=== PATIENT | female | born 1935 | race Caucasian/White ===

== ENCOUNTER 2017-12-30 20:31 | Inpatient (IN) | payer MEDICARE, OTHER ==
[2017-12-30 21:11] LABS: #Lymphocytes 0.8 thou/uL (1.20-3.40); #Monocytes 0.8 thou/uL (0.11-0.59); #Neutrophils 11.1 thou/uL (1.40-6.50); %Eosinophils 0.1 % (0.0-10.0); %Lymphocytes 6.6 % (21.0-51.0); %Monocytes 6.1 % (0.0-10.0); %Neutrophils 87.2 % (42.0-75.0); Hemoglobin 14.5 g/dL (12.0-16.0); Mean Corpuscular HGB CONC 33.6 g/dL (32.0-36.0); Mean Corpuscular Hemoglobin 34.1 pg (27.0-31.0); Mean Platelet Volume 6.9 fL (7.4-10.4); Platelet Count 238 thou/uL (130-400); RBC Distribution Width 11.5 % (11.5-14.5); Red Blood Cell (RBC) Count 4.25 mill/uL (4.20-5.40); White Blood Cell (WBC) Count 12.7 thou/uL (4.8-10.8)
[2017-12-30 21:33] LABS: ALT (SGPT) 32 U/L (8-55); AST (SGOT) 36 U/L (5-34); Albumin 4.3 g/dL (3.4-4.8); Alkaline Phosphatase 100 U/L (40-150); Anion Gap 12 mmol/L (10-20); BUN (Urea Nitrogen) 12 mg/dL (9.8-20.1); Bilirubin, Total 1.1 mg/dL (0.2-1.2); Calc. Creatinine Clearance 0 mL/min (70-130); Calcium 10.1 mg/dL (7.8-10.44); Carbon Dioxide 30 mmol/L (23-31); Chloride 91 mmol/L (98-107); Estimated GFR-MDRD 75; Globulin 3.6 g/dL (2.4-3.5); Glucose 142 mg/dL (83-110); Potassium 4.2 mmol/L (3.5-5.1); Protein, Total 7.9 g/dL (6.0-8.3); Sodium 129 mmol/L (136-145)
--- NOTE | 2017-12-30 21:34 | RAD ---
PORTABLE CHEST: 12/30/2017 PROVIDED CLINICAL HISTORY: Shortness of breath. COMPARISON: 05/19/2013 FINDINGS: The cardiac and mediastinal silhouette are unchanged in appearance. Vascular calcifications involve the aortic arch. Emphysematous changes are redemonstrated. No focal consolidation, pleural fluid, o r pneumothorax apparent. IMPRESSION: No evidence for acute cardiopulmonary process. POS: [facility]
[2017-12-30 21:38] LABS: CKMB 2.2 ng/mL (0-6.6); Troponin I 0.084 ng/mL (< 0.028)
[2017-12-30] MEDS ORDERED: Furosemide 40 MG/4 ML VIAL ONE (22:41)
[2017-12-30] MEDS ORDERED: Nitroglycerin 2% Ointment 1 INCH/1 GM Packet ONE (22:46)
--- NOTE | 2017-12-30 23:46 | RAD ---
PELVIC RADIOGRAPH: 12/30/2017 PROVIDED CLINICAL HISTORY: Pain. FINDINGS: There is a nondisplaced impacted fracture of the left femoral neck. No additional fracture is eviden t. Vascular calcifications are seen. Hip joint spaces appear preserved. Lower lumbar spine degener ative changes are noted. IMPRESSION: Left femoral neck fracture. POS: [facility]
--- NOTE | 2017-12-30 23:47 | RAD ---
LEFT HIP RADIOGRAPHS TWO VIEWS: 12/30/2017 PROVIDED CLINICAL HISTORY: Pain. FINDINGS: Nondisplaced, impacted fracture involves the left femoral neck. No additional fracture is evident. Left hip joint space appears preserved. IMPRESSION: Left femoral neck fracture. POS: [facility]
[2017-12-31] MEDS ORDERED: Morphine 4 MG/ML VIAL ONE (00:10)
[2017-12-31] MEDS ORDERED: Ondansetron ODT 8 MG TAB ONE (00:10)
[2017-12-31] MEDS ORDERED: Lorazepam 2 MG/ML VIAL ONE (00:28)
[2017-12-31] MEDS ORDERED: Azithromycin 500 MG in Sodium Chloride 0.9% 250 ML 250 ML IVPB SCH (04:00)
[2017-12-31] MEDS ORDERED: Dextrose 5 % And 0.9 % NaCl 1,000 ML IV SCH (04:00)
[2017-12-31 04:03] LABS: #Lymphocytes 1.9 thou/uL (1.20-3.40); #Neutrophils 8.5 thou/uL (1.40-6.50); %Basophils 0.1 % (0.0-1.0); %Eosinophils 0.1 % (0.0-10.0); %Lymphocytes 16.6 % (21.0-51.0); %Monocytes 8.7 % (0.0-10.0); %Neutrophils 74.5 % (42.0-75.0); Hemoglobin 13.2 g/dL (12.0-16.0); Mean Corpuscular HGB CONC 33.4 g/dL (32.0-36.0); Mean Corpuscular Hemoglobin 34.1 pg (27.0-31.0); Mean Platelet Volume 7.1 fL (7.4-10.4); Platelet Count 190 thou/uL (130-400); RBC Distribution Width 11.4 % (11.5-14.5); Red Blood Cell (RBC) Count 3.88 mill/uL (4.20-5.40); White Blood Cell (WBC) Count 11.4 thou/uL (4.8-10.8)
[2017-12-31 04:09] LABS: INR-International Normal Ratio 1.1; PTT 32.6 SEC (22.9-36.1); Prothrombin Time 14.1 SEC (12.0-14.7)
[2017-12-31 04:23] LABS: Troponin I 0.067 ng/mL (< 0.028)
[2017-12-31 04:26] LABS: ALT (SGPT) 51 U/L (8-55); AST (SGOT) 94 U/L (5-34); Albumin 3.7 g/dL (3.4-4.8); Alkaline Phosphatase 133 U/L (40-150); Anion Gap 11 mmol/L (10-20); BUN (Urea Nitrogen) 9 mg/dL (9.8-20.1); Bilirubin, Total 1.4 mg/dL (0.2-1.2); Calc. Creatinine Clearance 63 mL/min (70-130); Calcium 8.9 mg/dL (7.8-10.44); Carbon Dioxide 25 mmol/L (23-31); Chloride 98 mmol/L (98-107); Estimated GFR-MDRD Greater than 90; Glucose 119 mg/dL (83-110); Potassium 3.8 mmol/L (3.5-5.1); Protein, Total 6.7 g/dL (6.0-8.3); Sodium 130 mmol/L (136-145)
[2017-12-31] MEDS ORDERED: Furosemide 40 MG/4 ML VIAL SLOW IVP SCH (07:00)
[2017-12-31] MEDS ORDERED: cefTRIAXone\\ROCEPHIN 2 GM in Sodium Chloride 0.9% 100 ML IVPB SCH (07:00)
[2017-12-31] MEDS ORDERED: CEFAZOLIN/Water 2 GM/20 ML SYRINGE SLOW IVP SCH (08:00)
--- NOTE | 2017-12-31 08:05 | CON ---
DATE OF CONSULTATION: 12/31/2017 CONSULTING PHYSICIAN: Dr. Gurpreet Rodriges HISTORY OF PRESENT ILLNESS: We were asked to see patient via the ER and Medical Service. The patien tyler came into the ER last night with increasing shortness of breath. Apparently, she was seen previous ly a week prior and her symptoms have gotten progressively worse. The patient got up to go to the [facility], apparently fallen in our ER sustaining a femoral neck fracture, nondisplaced. The patient cu rrently is in bed with obvious shortness of breath. She is very somnolent. I had to continue to gen tly shake the patient to keep her awake during our conversation and physical exam. Currently, she is resting in bed, head is elevated, her knees are under a pillow and this is comfortable for her. Mov ement of that hip does cause her some pain, but it is moderate currently. Her biggest complaint curr ently is shortness of breath and somnolence. Otherwise, she is fairly comfortable. PAST MEDICAL HISTORY: She got some chronic pain issues, neck and back, hypertension, some osteoarthr itis. PAST SURGICAL HISTORY: Right carotid endarterectomy, appendectomy in December, hysterectomy. PSYCHIATRIC HISTORY: Anxiety, some depression. SOCIAL HISTORY: She lives alone. She states she has no family, everybody has passed. No kids. She drinks a few glasses of wine a day. SOCIAL HISTORY: Smokes half to 1 pack a day and has for many years. ALLERGIES: Patient thinks LEVAQUIN and PENICILLIN. CURRENT MEDICATIONS: Alprazolam, aspirin, atenolol, azelastine nasal spray. REVIEW OF SYSTEMS: No chest pain, but definitely short of breath, very fatigued, tired, and some lef t hip pain, otherwise the rest review of systems is negative per patient. X-rays show nondisplaced left hip fracture. ASSESSMENT: 1. Multiple health issues, currently being treated by our Hospitalist. 2. Left hip fracture, nondisplaced. PLAN: I spoke with the patient. We would like to do percutaneous screws and I explained the procedu re with the risks and benefits of surgery. The patient is amenable to go forth with surgery. Dr. Jairo velasco also had come into the room for medical evaluation. The patient will definitely need medic al clearance prior to surgery. She is not on any blood thinners. She is currently n.p.o. We will ge t her consented, put her on the OR schedule for today to hold a spot for her. Again, I have gone ove r the risks and benefits with her and she is okay with us proceeding forth with surgery. She is inde pendent. We want to get her back at that status as soon as possible.
[2017-12-31 08:28] LABS: Bilirubin Negative (Negative); Blood, Urine Small (Negative); Clarity CLOUDY (Clear); Glucose, Urine (Dipstick) Negative (Negative); Leukocyte Negative (Negative); Nitrite Negative (Negative); Protein, Urine (Dipstick) 30 mg/dL (Neg-Trace); Specific Gravity, Urine 1.012 (1.002-1.036); pH, Urine 5.5 (5.0-9.0)
[2017-12-31 08:31] LABS: Bacteria/HPF None Seen HPF (None Seen); RBC/HPF 0-3 HPF (0-3); Squamous Epithelial 0-3 HPF (0-3); WBC/HPF 0-3 HPF (0-3)
[2017-12-31 08:41] LABS: Pathc Cast-AUWi Flag 2.61 (0-2.49)
[2017-12-31 08:52] LABS: Hyaline Casts/LPF 4-6 HYALINE CAST LPF (0-3 Hyaline); Other Casts/LPF 4-6 FINELY GRAN LPF (0-3 Hyaline)
[2017-12-31] MEDS ORDERED: Levofloxacin 750 mg/D5W 500 MG in Premix Bag 1 BAG IVPB SCH (10:15)
[2017-12-31] MEDS: cefTRIAXone\\ROCEPHIN 1 GM in Sodium Chloride 0.9% 100 ML IVPB SCH (11:46)
--- NOTE | 2017-12-31 12:09 | CON ---
DATE OF CONSULTATION: 12/31/2017 CONSULTING PHYSICIAN: Dr. Ambrose. REASON FOR CONSULTATION: Chronic obstructive pulmonary disease and elevated pulmonary artery pressures. HISTORY OF PRESENT ILLNESS: The patient is an 82-year-old female who came to the emergency room last night for increasing shortness of breath. She got up to use the bathroom and fell in the emergency room, sustaining a femoral neck fracture on the left. She is supposed to have surgery for repair. I have been asked to see her to assess her preoperative pulmonary status. The patient is a long-term at least 1 pack per day smoker who was continuing to smoke. Upon arrival yesterday, she does not take any type of oxygen or inhalers at home. She has shortness of breath with exertion and has had increased sputum production over the last week. PAST MEDICAL HISTORY: 1. Back pain. 2. Hypertension. 3. Osteoarthritis. PAST SURGICAL HISTORY: Right carotid endarterectomy, hysterectomy and appendectomy. SOCIAL HISTORY: Smokes at least a pack per day, drinks a few glasses of wine per day. Lives alone. ALLERGIES: LEVAQUIN and PENICILLIN. MEDICATIONS: Prior to admission, alprazolam, aspirin, atenolol, and Astelin nasal spray. REVIEW OF SYSTEMS: Remarkable for sputum production. No fever, chills, chest pain, hematemesis, melena, hematochezia, hematuria, or dysuria. PHYSICAL EXAMINATION: VITAL SIGNS: Temperature 98.3, pulse 110, respirations 18, O2 sat 96% on 2.5 liters, blood pressure 121/57. GENERAL: The patient is awake, alert, and in no profound distress. She does have a prominent cough. HEENT: Pupils react. Sclerae anicteric. Oropharynx clear. NECK: Without adenopathy or JVD. LUNGS: Coarse rhonchi bilaterally. CARDIOVASCULAR: S1, S2 regular, without murmur, rub or gallop. ABDOMEN: Soft, nontender, nondistended. No hepatosplenomegaly. EXTREMITIES: No clubbing, cyanosis, or edema. LABORATORY DATA: Sodium 130, potassium 3.8, chloride 98, CO2 25, BUN 9, creatinine 0.6, glucose 119, AST 94, ALT 51. Troponin 0.067. White blood cell count 11.4, hematocrit 39.6, platelet count 190. X-RAY FINDINGS: Her chest x-ray shows hyperinflation. She has prominent pulmonary arteries. ASSESSMENT: 1. Likely underlying chronic obstructive pulmonary disease. 2. Chronic obstructive pulmonary disease with exacerbation. 3. Pulmonary hypertension, which is likely secondary to chronic obstructive pulmonary disease. 4. Hip fracture. 5. Tobacco abuse. RECOMMENDATIONS: Based on her functional status, I think she could probably undergo surgical pinning without much problem. I agree with the steroids, nebulization treatments, and the Zithromax. She is at high risk for pulmonary complications, but I think she is on maximal medical therapy. I would not have issue with her going forward with surgery by tomorrow. Thank you for the referral. We will follow with you. 70 minutes time was spent performing this consultation. Of that time, >50% was spent with the patient and/or on the patient's hospital unit. DANTE
--- NOTE | 2017-12-31 12:27 | HP ---
REASON FOR ADMISSION: CHF exacerbation, COPD exacerbation, left femoral neck fracture. HISTORY OF PRESENTING ILLNESS: The patient initially came to ER with complaints of shortness of breath and coughing spells at home. This has been progressive from last 4-5 days and had gotten worse. After initial assessment in the ER, the patient tried to use the restroom and while she was trying to get out of bed to go to the bathroom, the patient apparently fell and soon she complained of left hip pain and x-rays revealed left femoral neck fracture. Currently, has a cough with expectoration. No chest pain. Has some mild shortness of breath and is comfortable at 30 degrees head end elevation. No complaints of palpitations or PND. The patient states she normally ambulates by herself, but at times, uses cane at home. She lives alone. The patient states she could not sleep last night due to coughing spells and back pain. PAST MEDICAL AND SURGICAL HISTORY: History of COPD with ongoing smoking, varicose veins, history of endometriosis with hysterectomy, hypertension, right carotid endarterectomy, appendectomy. CURRENT MEDICATIONS: The patient is on atenolol 50 mg daily and azelastine nasal spray p.r.n. ALLERGIES: LEVAQUIN and PENICILLIN. PERSONAL HISTORY: The patient admits to smoking half pack a day, drinks occasional glass of wine. Does not abuse drugs. She lives alone. Her of cancer at the age of 72 years. FAMILY HISTORY: The patient states she does not have any children as she had severe endometriosis. She had a sister who is now. Her . The only living relative is a nephew by name Mr. Toribio Mckeon, the number to reach him is [phone]. I have tried calling this number and I am unable to reach the nephew. Code status is FULL and this was discussed with patient. REVIEW OF SYSTEMS: The following complete review of systems was negative, unless otherwise mentioned in the HPI or below: Constitutional: Weight loss or gain, ability to conduct usual activities. Skin: Rash, itching. Eyes: Double vision, pain. ENT/Mouth: Nose bleeding, neck stiffness, pain, tenderness. Cardiovascular: Palpitations, dyspnea on exertion, orthopnea. Respiratory: Shortness of breath, wheezing, cough, hemoptysis, fever or night sweats. Gastrointestinal: Poor appetite, abdominal pain, heartburn, nausea, vomiting, constipation, or diarrhea. Genitourinary: Urgency, frequency, dysuria, nocturia. Musculoskeletal: Pain, swelling. Neurologic/Psychiatric: Anxiety, depression. Allergy/Immunologic: Skin rash, bleeding tendency. PHYSICAL EXAMINATION: GENERAL: The patient is an 82-year-old female who is currently not in any distress. VITAL SIGNS: Blood pressure 118/54, pulse 106 per minute, respiratory rate 26 per minute, temperature 99.5 degrees Fahrenheit, saturating 97% on 2-1/2 liters nasal cannula. NECK: Supple. There is elevated JVD. HEENT: Eyes: Extraocular muscles intact. Pupils are reacting to light. Oral cavity mucous membranes are dry. No exudates or congestion. CARDIOVASCULAR SYSTEM: S1, S2 heard. Regular rhythm, tachycardic. RESPIRATORY SYSTEM: Air entry 1+ bilateral. Scattered wheezes plus bilateral, rales plus in the infrascapular area. ABDOMEN: Soft, bowel sounds heard. No tenderness, rigidity or guarding. EXTREMITIES: No peripheral edema or calf tenderness. VASCULAR SYSTEM: Peripheral pulses 1+ bilateral, no ischemic ulcerations or gangrene. CENTRAL NERVOUS SYSTEM: No gross focal deficits seen. The patient is lethargic , but fairly oriented. PSYCHIATRIC SYSTEM: The patient's mood is euthymic. No hallucinations or delusions. LABORATORY AND X-RAY FINDINGS: White count of 11, H&H 13 and 39, platelet count 190, MCV is 102 with 74% neutrophils. PT, INR, PTT within normal limits. Sodium is 130, BUN is 9, creatinine 0.6, glucose 119, total bilirubin 1.4, AST 94, ALT 51, alkaline phosphatase 133. Troponin I is indeterminate peaking up to 0.08. BNP is 1228, albumin is 4.3. Left hip two view x-rays done shows left femoral neck fracture, it is nondisplaced and is impacted. Pelvic AP view shows left femoral neck fracture. Chest x-ray done shows finding suggestive of COPD with emphysema. EKG done shows sinus tachycardia at 103 beats per minute. There is left anterior fascicular block with poor R-wave progression. The patient had an urgent echo done, which showed EF of 60% to 65% with grade I/III diastolic dysfunction, moderately dilated RV, moderate to severe tricuspid regurgitation and elevated RVSP at 60 mmHg. CLINICAL IMPRESSION AND PLAN: The patient will be admitted to telemetry for acute chronic obstructive pulmonary disease exacerbation, acute congestive heart failure exacerbation with diastolic dysfunction, left hip femoral neck fracture. The plan is to diurese the patient gently with 40 mg Lasix q.12 hourly. She has received 1 dose of Lasix already, the second one is due at 2: 00 p.m. The patient has mild orthopnea and is currently comfortable at 30 degrees head end elevation. We will also place her on the steroids, incentive spirometry, along with aspirin, Coreg for now. She will be on Zithromax and ceftriaxone in view of her allergy to LEVAQUIN and PENICILLIN. The patient likely will be ready later this evening or prefer early in the morning for surgery for the left femoral neck fracture where she will be more stable with diuresis. I have discussed her findings with Dr. Oviedo for cardiology clearance as well. I have spoken to Dr. Sarmiento, the patient's primary care physician, and got a full update about the patient. She last saw her 2 years ago. There is no other power of admitted attorneys for patient other than her on their medical records. I am unable to reach her nephew, Mr. Toribio Mckeon at [phone] at present. Code status is FULL, this was discussed with patient. Again, the patient will be more optimized for surgery in the morning. By then, she would have received 3 doses of Lasix and should be comfortable for any anesthesia. She is currently tachycardic, likely from the nebulizations, that has been given. We will closely monitor for any arrhythmias. Her LV ejection fraction is good. The patient likely has underlying dementia and was confused overnight on telemetry and has a 1:1 sitter at present. We will also request case management/social work consult for locating family member/next of kin. [facility] CENTERJennifer
[2017-12-31] MEDS: Furosemide 40 MG/4 ML VIAL SLOW IVP SCH (13:26)
[2017-12-31] MEDS: Morphine 4 MG/ML VIAL SLOW IVP PRN (13:28)
--- NOTE | 2017-12-31 14:23 | CON ---
DATE OF CONSULTATION: 12/31/2017 REASON FOR CONSULTATION: Preoperative evaluation of shortness of breath. HISTORY OF PRESENT ILLNESS: Ms. Strange is a very pleasant 82-year-old white female who comes to the ospital for shortness of breath and coughing spells at home. She has noticed this has been getting w orse for the last 4 or 5 days to the point where it got so bad that she had to come in for evaluation . She was being evaluated in the ER and she stood up, went to the bathroom. While she was in the ba throom, she fell and injured her left hip. X-rays revealed a left femoral neck fracture. She was ad mitted for COPD exacerbation and neck fracture requiring repair. During the process of the admission , BNP was measured and it was found to be elevated, so Cardiology is being consulted for this. On my evaluation, Ms. Strange is only complaining of her left hip pain. Her breathing is close to baseline, although, she is using oxygen which is not something she uses at home. PAST MEDICAL HISTORY: 1. COPD. 2. Varicose veins. 3. Endometriosis with hysterectomy in the past. 4. Hypertension. 5. Peripheral vascular disease, status post right carotid endarterectomy. PAST SURGICAL HISTORY: 1. Right CEA. 2. Appendectomy. 3. Hysterectomy. OUTPATIENT MEDICATIONS: 1. Atenolol 50 mg daily. 2. Azelastine nasal spray p.r.n. ALLERGIES: LEVAQUIN, PENICILLIN. SOCIAL HISTORY: Smokes half pack a day, occasional glass of wine. No drug use. Lives alone. FAMILY HISTORY: Noncontributory. She has no kids. Her closest relative is a nephew. REVIEW OF SYSTEMS: A 12-point review of systems was done and is all negative unless stated in the hi story of present illness. PHYSICAL EXAMINATION: VITAL SIGNS: Temperature 98.3, pulse 110, respiration rate 18, satting 96% on 2-1/2 liters, blood pr essure 121/57. GENERAL: Awake, alert, oriented x3, in no distress. HEENT: Normocephalic, atraumatic. NECK: Supple, no JVD. LUNGS: Have reduced breath sounds bilateral. CARDIOVASCULAR: S1, S2, no S3, S4. No distant heart sounds. There is a grade 2/6 systolic murmur a t the left sternal border fourth intercostal space. ABDOMEN: Soft, positive bowel sounds. EXTREMITIES: No edema. SKIN: Warm and dry. LABORATORY WORK: Reviewed. CBC: White count of 12, hemoglobin 14, hematocrit 43, platelet count of 238. Coags were unremarkable. Chemistry: Sodium 139, potassium 4.2, anion gap of 12, BUN of 12, c reatinine 0.74, GFR 75. Total bilirubin is normal; however, is a little high at 1.4, AST of 94, ALT 51, alkaline phosphatase normal. Troponin is 0.08, 0.06, with normal CK-MBs. BNP was 1228, albumin was 4.3. Echocardiogram was reviewed, normal LV systolic function. RV is dilated with normal RV systolic func tion. There is moderate to severe TR with elevated RVSP estimated at 60 mmHg. ASSESSMENT: 1. Preoperative evaluation. 2. Left hip fracture. 3. Elevated BNP. 4. Right ventricular dysfunction. 5. Diastolic heart failure. PLAN: 1. Agree with 1-2 doses of Lasix to try to get her a little bit flake drier than what she is most of her e donell is probably intraabdominal and difficult to assess clinically. I would not do more than that. She is certainly not at prohibitive risk for surgery, but she is certainly high risk for cardiac comp lications given her significant tobacco use. 2. We would recommend a pulmonary evaluation before surgery as her pulmonary status is unknown at th is time. 3. Mildly elevated troponins are likely just related to demand ischemia and from right-sided elevate d pressures from the amount of stress that her heart is going through her at that time. Thank you for letting us to participate in the care of your patient. We will follow.
[2017-12-31] MEDS: Ibuprofen 200 MG TAB PO SCH ×2 (17:30→21:31)
[2017-12-31] MEDS: Carvedilol 3.125 MG TAB PO SCH (21:31)
[2017-12-31] MEDS: Famotidine 20 MG TAB PO SCH (21:31)
[2017-12-31] MEDS: Amiodarone HCl 450 MG, Admixture Fee 1 EACH in Dextrose 5% in Water 250 ML IVPB SCH (23:04)
[2017-12-31 23:47] LABS: ALT (SGPT) 36 U/L (8-55); AST (SGOT) 29 U/L (5-34); Albumin 3.4 g/dL (3.4-4.8); Alkaline Phosphatase 102 U/L (40-150); Bilirubin, Direct 0.3 mg/dL (0.1-0.3); Bilirubin, Total 0.6 mg/dL (0.2-1.2); Protein, Total 6.1 g/dL (6.0-8.3)
[2018-01-01] MEDS ORDERED: Lorazepam 2 MG/ML VIAL SLOW IVP PRN (03:51)
[2018-01-01 05:06] LABS: Anion Gap 14 mmol/L (10-20); BUN (Urea Nitrogen) 28 mg/dL (9.8-20.1); Calc. Creatinine Clearance 29 mL/min (70-130); Calcium 9.5 mg/dL (7.8-10.44); Carbon Dioxide 26 mmol/L (23-31); Chloride 94 mmol/L (98-107); Estimated GFR-MDRD 39; Glucose 186 mg/dL (83-110); Potassium 3.8 mmol/L (3.5-5.1); Sodium 130 mmol/L (136-145)
[2018-01-01] MEDS ORDERED: CEFAZOLIN/Water 2 GM/20 ML SYRINGE SLOW IVP SCH (05:30)
[2018-01-01] MEDS: Furosemide 40 MG/4 ML VIAL SLOW IVP SCH (05:45)
[2018-01-01] MEDS: Azithromycin 500 MG in Sodium Chloride 0.9% 250 ML 250 ML IVPB SCH (05:45)
[2018-01-01 05:54] LABS: Band 22 % (5-11); Hemoglobin 12.8 g/dL (12.0-16.0); Lymphocytes 6 % (21-51); MDiff Complete? YES; Mean Corpuscular Hemoglobin 35.2 pg (27.0-31.0); Mean Platelet Volume 7.8 fL (7.4-10.4); Monocytes 13 % (0-10); Neutrophil 59 % (42-75); Platelet Count 220 thou/uL (130-400); RBC Distribution Width 11.4 % (11.5-14.5); Red Blood Cell (RBC) Count 3.65 mill/uL (4.20-5.40); White Blood Cell (WBC) Count 11.5 thou/uL (4.8-10.8)
[2018-01-01 07:30] LABS: pH, Arterial 7.36 (7.35-7.45)
[2018-01-01 07:45] LABS: Actual Bicarbonate (HCO3a) 33.4 mEq/L (22-26); CO2 Tension 60.7 mmHg (35.0-45.0); O2 Tension (PaO2) 80.3 mmHg (80.0-100.0)
[2018-01-01 07:46] LABS: Base Excess (BEa) 6.1 mEq/L (0 (+/-) 2.5); Hemoglobin (Hb) 13.2 g/dL (12.0-16.0)
[2018-01-01 07:48] LABS: ALV-art Gradient 42.345 (0-20); Analyzer IN Cardio OR; Calcium, Ionized 1.2 mmol/L (1.12-1.30); Puncture Site LRA
--- NOTE | 2018-01-01 08:59 | PRG ---
DATE OF SERVICE: 01/01/2018 She was seen in day stay prior to her surgery. Unfortunately, she has already been given some Ativan , so she is sleepy and will not awaken. She does not appear to be in any distress. PHYSICAL EXAMINATION: VITAL SIGNS: Temperature 97.2, pulse 87, respirations 18, O2 sat 100%, blood pressure 154/65. HEENT: Unremarkable. NECK: No JVD. CHEST: Clear. CARDIAC: S1 and S2 regular. ABDOMEN: Soft. EXTREMITIES: No edema. LABORATORY DATA: White blood cell count 11.5, hematocrit 37.7, platelet count 220. Sodium 130, pota ssium 3.8, chloride 94, CO2 26, BUN 20, creatinine 1.3, glucose 186. ABG; pH 7.36, pCO2 of 60, pO2 8 0. ASSESSMENT: 1. Likely severe chronic obstructive pulmonary disease. 2. Hip fracture. 3. Chronic hypercapnia. PLAN: She will undergo surgical repair of her hip. She is continuing steroids, breathing treatments . She is at moderate risk for pulmonary complications, but I do not see how putting this off is koby keith.
[2018-01-01] MEDS ORDERED: Enoxaparin Sodium 40 MG/0.4 ML SYRINGE SC SCH (09:00)
[2018-01-01] MEDS ORDERED: Fentanyl 100 MCG/2 ML VIAL ONE (09:19)
[2018-01-01] MEDS ORDERED: Dexmedetomidine 200 MCG/2 ML VIAL ONE (09:29)
[2018-01-01] MEDS ORDERED: CEFAZOLIN/Water 2 GM/20 ML SYRINGE ONE (09:47)
[2018-01-01] MEDS ORDERED: Sodium Chloride 0.9% 100 ML ONE (09:47)
[2018-01-01] MEDS ORDERED: cefTRIAXone\\ROCEPHIN 1 GM VIAL ONE (09:47)
[2018-01-01] MEDS ORDERED: Midazolam HCl 2 mg/2 ml Vial ONE (09:59)
[2018-01-01] MEDS ORDERED: Magnesium 2 GM/NS 0.9% 100 ML 2 GM in Premix Bag 1 BAG IVPB SCH (10:00)
[2018-01-01] MEDS ORDERED: Potassium Chloride 20 MEQ in Premix Bag 1 BAG IVPB SCH (10:00)
[2018-01-01] MEDS ORDERED: Bupivacaine HCl 0.5%/Epinephrine 1:200,000/PF 30 ml Vial ONE (10:01)
[2018-01-01] MEDS: Carvedilol 3.125 MG TAB PO SCH ×2 (10:12→21:10)
[2018-01-01] MEDS: Famotidine 20 MG TAB PO SCH (10:12)
[2018-01-01] MEDS: Ibuprofen 200 MG TAB PO SCH ×3 (10:12→21:10)
--- NOTE | 2018-01-01 10:52 | OP ---
DATE OF PROCEDURE: 01/01/2018 OPERATION: Left femoral neck fracture, percutaneous screw fixation. PREOPERATIVE DIAGNOSIS: Left femoral neck fracture, nondisplaced. IMPLANTS: Three 7.3 mm Synthes cannulated screws. ESTIMATED BLOOD LOSS: Minimal. SURGEON: Eddie Arita M.D. ANESTHESIA: Local plus sedation. INDICATIONS: Ms. Strange is an 82-year-old female who has fallen. She fractured her left femoral neck . She was indicated for percutaneous screw fixation to stabilize the fracture and promote healing as well as promote early mobilization. Risks were reviewed. She elected to proceed with the operation . DESCRIPTION OF PROCEDURE: Ms. Strange was identified in the preoperative holding area. Her correct ex tremity was marked. She was carried to the operating room. She was positioned supine. General anes thesia was induced. A multidisciplinary timeout was performed. The left lower extremity was prepped and draped in sterile fashion. We began the procedure by injecting local anesthetic along the lateral thigh and down to the perioste um of the bone. At this point, we proceeded with percutaneous guidewire placement. An inferior guid ewire was placed followed by 2 more superior guidewires in an inverted triangle pattern. These cross ed the fracture site. These were checked on orthogonal x-rays to confirm they were in appropriate pl acement. We then measured the length of the guidewires followed by overdrilling. Next, we placed th ree 7.3 mm cannulated screws. Again, we took multiple x-rays confirming position. At this point, we thoroughly irrigated and closed with 0 Vicryl suture followed by gerry for the skin. A sterile dr essing was applied. The patient was taken to the recovery room in good condition without complicatio n.
--- NOTE | 2018-01-01 11:19 | PDOC.PN ---
- Subjective Encounter Start Date: 01/01/18 Encounter Start Time: 07:30 Subjective: lethargic, awakens to sternal rub -: not in distress -: got 1 dose ativan for agitation overnight - Objective Resuscitation Status: Resuscitation Status FULL:Full Resuscitation MAR Reviewed: Yes Vital Signs & Weight: Vital Signs (12 hours) Temp Pulse Resp BP Pulse Ox 01/01/18 07:24 97.2 F L 87 18 144/65 H 100 01/01/18 07:00 74 18 98 01/01/18 04:00 112 H 112/59 L 01/01/18 00:00 126 H 119/58 L Weight Admit Weight 120 lb 14.4 oz Weight 119 lb 14.4 oz I&O: 12/31/17 01/01/18 01/02/18 06:59 06:59 06:59 Intake Total 125 1420 Output Total 350 1615 Balance -225 -195 Result Diagrams: 01/01/18 04:05 01/01/18 04:05 Phys Exam - Physical Examination HEENT: PERRLA, sclera anicteric Neck: no JVD, supple Respiratory: no wheezing, no rales rhonchi+ Cardiovascular: RRR, no significant murmur Gastrointestinal: soft, non-tender, positive bowel sounds Musculoskeletal: no edema, pulses present Neurological: non-focal obtunded due to meds Dx/Plan (1) Afib Code(s): I48.91 - UNSPECIFIED ATRIAL FIBRILLATION Status: Acute Qualifiers: Atrial fibrillation type: paroxysmal Qualified Code(s): I48.0 - Paroxysmal atrial fibrillation Comment: in sinus rhythm, on amiod drip (2) COPD (chronic obstructive pulmonary disease) Status: Chronic Qualifiers: COPD type: COPD with acute exacerbation Qualified Code(s): J44.1 - Chronic obstructive pulmonary disease with (acute) exacerbation (3) CHF (NYHA class II, ACC/AHA stage C) Code(s): I50.9 - HEART FAILURE, UNSPECIFIED Status: Acute Comment: diastolic dysfunction (4) Fracture of femoral neck, left, closed Code(s): S72.002A - FRACTURE OF UNSP PART OF NECK OF LEFT FEMUR, INIT Status: Acute Comment: s/p percut screw fixation 01/01/2018 (5) Dementia Code(s): F03.90 - UNSPECIFIED DEMENTIA WITHOUT BEHAVIORAL DISTURBANCE Status: Chronic Qualifiers: Dementia type: unspecified type Dementia behavioral disturbance: with behavioral disturbance Qualified Code(s): F03.91 - Unspecified dementia with behavioral disturbance (6) HTN (hypertension) Code(s): I10 - ESSENTIAL (PRIMARY) HYPERTENSION Status: Chronic Qualifiers: Hypertension type: essential hypertension Qualified Code(s): I10 - Essential (primary) hypertension - Plan was cleared for surgery this am, has had percut screw fixation -: watch for aspiration, continue 1:1 sitter -: reduced steroid dose, nebs, on amiodarone drip -: dc lasix, on ceftriaxone and zithromax, may switch to omnicef in am if stab -: PT to mobilize per ortho advice, will need placement likely swing bed/rehab * . Review of Systems - Medications/Allergies Allergies/Adverse Reactions: Allergies Allergy/AdvReac Type Severity Reaction Status Date / Time No Known Allergies Allergy Unverified 12/31/17 01:44 Medications: Current Medications Acetaminophen (Tylenol) 650 mg PO Q4H PRN PRN Reason: Headache/Fever or Pain Albuterol/Ipratropium (Duoneb) 3 ml NEB [id number] REPLACED BY [facility] Last Admin: 01/01/18 10:14 Dose: Not Given Albuterol/Ipratropium (Duoneb) 3 ml NEB Q2H PRN PRN Reason: SOB &/or Wheezing Alprazolam (Xanax) 0.25 mg PO TID PRN PRN Reason: Anxiety Aspirin (Aspirin Chewable) 81 mg PO DAILY REPLACED BY [facility] Last Admin: 01/01/18 10:11 Dose: Not Given Carvedilol (Coreg) 3.125 mg PO BID REPLACED BY [facility] Last Admin: 01/01/18 10:12 Dose: Not Given Cefazolin Sodium (Ancef) 2 gm SLOW IVP ONCALL-OR SHELLY Stop: 01/01/18 18:00 Cefazolin Sodium (Ancef) 2 gm SLOW IVP 0200,1800 REPLACED BY [facility] Stop: 01/02/18 02:01 Enoxaparin Sodium (Lovenox) 40 mg SC 0900 REPLACED BY [facility] Last Admin: 01/01/18 10:11 Dose: Not Given Enoxaparin Sodium (Lovenox) 40 mg SC 0900 REPLACED BY [facility] Famotidine (Pepcid) 20 mg PO Q12HR REPLACED BY [facility] Last Admin: 01/01/18 10:12 Dose: Not Given Azithromycin 500 mg/ Sodium (Chloride) 250 mls @ 250 mls/hr IVPB 0400 SHELLY Last Admin: 01/01/18 05:45 Dose: 250 mls Ceftriaxone Sodium 1 gm/ (Sodium Chloride) 100 mls @ 200 mls/hr IVPB 1100 SHELLY Last Admin: 12/31/17 11:46 Dose: 100 mls Amiodarone HCl 450 mg/Miscellaneous Medication 1 each/ Dextrose/Water 259 mls @ 0 mls/hr IVPB INF SHELLY; As Directed PRN Reason: Protocol Last Admin: 12/31/17 23:04 Dose: 259 mls Potassium Chloride 20 meq/ (Device) 100 mls @ 50 mls/hr IVPB NOW REPLACED BY [facility] Stop: 01/01/18 12:00 Magnesium Sulfate 2 gm/ Device 100 mls @ 100 mls/hr IVPB NOW REPLACED BY [facility] Stop: 01/01/18 13:00 Ibuprofen (Motrin) 400 mg PO TID REPLACED BY [facility] Last Admin: 01/01/18 10:12 Dose: Not Given Lorazepam (Ativan) 1 mg SLOW IVP Q6H PRN PRN Reason: .ANXIETY Methylprednisolone Sodium Succinate (Solu-Medrol) 20 mg IVP Q8HR REPLACED BY [facility] Morphine Sulfate (Morphine) 2 mg SLOW IVP Q4H PRN PRN Reason: Chest Pain/BP Elevations Last Admin: 12/31/17 13:28 Dose: 2 mg
[2018-01-01] MEDS: cefTRIAXone\\ROCEPHIN 1 GM in Sodium Chloride 0.9% 100 ML IVPB SCH (12:04)
--- NOTE | 2018-01-01 12:22 | RAD ---
LEFT HIP RADIOGRAPHS TWO VIEWS: Date: 01-01-18 Provided Clinical History: ORIF FINDINGS: Comparison exam 12-30-17. Spot fluoroscopic images of the left hip demonstrate internal fixation of previously described left f emoral neck fracture. IMPRESSION: As above. POS: THAI
--- NOTE | 2018-01-01 12:49 | PDOC.CTH ---
Cardiology Progress Note - Subjective She had surgery earlier today and is still somnolent from anesthesia. She went into afib overnight and was started on an amiodarone drip due to borderline low BP. - Objective Vital Signs Temp Pulse Resp BP Pulse Ox 01/01/18 11:42 96.2 F L 81 20 138/65 98 01/01/18 07:32 97.2 F L 87 18 100 01/01/18 07:24 97.2 F L 87 18 144/65 H 100 01/01/18 07:00 74 18 98 01/01/18 04:00 112 H 112/59 L Admit Weight 120 lb 14.4 oz Weight 119 lb 14.4 oz 12/31/17 01/01/18 01/02/18 06:59 06:59 06:59 Intake Total 125 1420 Output Total 350 1615 Balance -225 -195 - Physical Examination General/Neuro: other: (somnolent) Neck: no JVD present Lungs: other: (Reduced breath sounds bilat. ) Heart: RRR Abdomen: NT/ND Extremities: other: (no edema) - Telemetry Telemetry Rhythm: Afib --> NSR - Labs Result Diagrams: 01/01/18 04:05 01/01/18 04:05 Troponin/CKMB CK-MB (CK-2) 2.2 ng/mL (0-6.6) 12/30/17 20:59 Troponin I 0.067 ng/mL (< 0.028) H 12/31/17 03:38 - Assessment/Plan 1. Left hip fracture. S/P repair. 2. COPD exacerbation. 3. Diastolic heart failure. 4. RV dysfunction likely from COPD PLAN: - Continue pulmonary toilet. - Would hold off on any more lasix for now. She seems euvolemic. - Will follow.
[2018-01-01] MEDS: CEFAZOLIN/Water 2 GM/20 ML SYRINGE SLOW IVP SCH (17:43)
[2018-01-01] MEDS ORDERED: Sodium Chloride 0.65% Nasal 44 ML BOT EA NARE PRN (20:02)
[2018-01-01] MEDS: Lorazepam 2 MG/ML VIAL SLOW IVP PRN (21:09)
--- NOTE | 2018-01-01 22:15 | EKG ---
Test Reason : PREOP Blood Pressure : / mmHG Vent. Rate : 097 BPM Atrial Rate : 108 BPM P-R Int : 000 ms QRS Dur : 082 ms QT Int : 386 ms P-R-T Axes : 000 -49 030 degrees QTc Int : 490 ms Atrial fibrillation Left anterior fascicular block Prolonged QT Abnormal ECG When compared with ECG of 30-DEC-2017 20:53, (Unconfirmed) Atrial fibrillation has replaced Sinus rhythm Confirmed by JOSE ROWE, SShamir ([id number]) on 01/01/2018 10:15:21 PM Referred By: BLESSING Confirmed By:DR. Yareli GARCIA MD
[2018-01-02] MEDS: Amiodarone HCl 450 MG, Admixture Fee 1 EACH in Dextrose 5% in Water 250 ML IVPB SCH (01:03)
[2018-01-02] MEDS: Lorazepam 2 MG/ML VIAL SLOW IVP PRN (01:44)
[2018-01-02] MEDS: Azithromycin 500 MG in Sodium Chloride 0.9% 250 ML 250 ML IVPB SCH ×3 (03:23→04:35)
[2018-01-02] MEDS: CEFAZOLIN/Water 2 GM/20 ML SYRINGE SLOW IVP SCH ×3 (03:24→04:35)
[2018-01-02] MEDS: Morphine 4 MG/ML VIAL SLOW IVP PRN (04:34)
--- NOTE | 2018-01-02 10:44 | PDOC.PN ---
- Subjective Encounter Start Date: 01/02/18 Encounter Start Time: 08:50 Subjective: awake, responds to verbal questions, not fully oriented -: no trouble breathing or chest pain - Objective Resuscitation Status: Resuscitation Status FULL:Full Resuscitation MAR Reviewed: Yes Vital Signs & Weight: Vital Signs (12 hours) Temp Pulse Resp BP Pulse Ox 01/02/18 07:30 97.5 F L 107 H 27 H 178/79 H 96 01/02/18 06:49 96 16 96 01/02/18 04:00 99 20 180/79 H 97 01/02/18 02:15 90 18 99 01/02/18 00:00 96 166/79 H Weight Admit Weight 120 lb 14.4 oz Weight 122 lb I&O: 01/01/18 01/02/18 01/03/18 06:59 06:59 06:59 Intake Total 1420 950 Output Total 1615 1350 Balance -195 -400 Result Diagrams: 01/01/18 04:05 01/01/18 04:05 Phys Exam - Physical Examination HEENT: PERRLA, moist MMs Neck: no JVD, supple Respiratory: no wheezing, no rales Cardiovascular: RRR, no significant murmur Gastrointestinal: soft, non-tender, positive bowel sounds Musculoskeletal: no edema, pulses present Neurological: non-focal, moves all 4 limbs Dx/Plan (1) Afib Code(s): I48.91 - UNSPECIFIED ATRIAL FIBRILLATION Status: Acute Qualifiers: Atrial fibrillation type: paroxysmal Qualified Code(s): I48.0 - Paroxysmal atrial fibrillation Comment: in sinus rhythm, on amiod drip (2) COPD (chronic obstructive pulmonary disease) Status: Chronic Qualifiers: COPD type: COPD with acute exacerbation Qualified Code(s): J44.1 - Chronic obstructive pulmonary disease with (acute) exacerbation (3) CHF (NYHA class II, ACC/AHA stage C) Code(s): I50.9 - HEART FAILURE, UNSPECIFIED Status: Acute Comment: diastolic dysfunction (4) Fracture of femoral neck, left, closed Code(s): S72.002A - FRACTURE OF UNSP PART OF NECK OF LEFT FEMUR, INIT Status: Acute Comment: s/p percut screw fixation 01/01/2018 (5) Dementia Code(s): F03.90 - UNSPECIFIED DEMENTIA WITHOUT BEHAVIORAL DISTURBANCE Status: Chronic Qualifiers: Dementia type: unspecified type Dementia behavioral disturbance: with behavioral disturbance Qualified Code(s): F03.91 - Unspecified dementia with behavioral disturbance (6) HTN (hypertension) Code(s): I10 - ESSENTIAL (PRIMARY) HYPERTENSION Status: Chronic Qualifiers: Hypertension type: essential hypertension Qualified Code(s): I10 - Essential (primary) hypertension - Plan prednisone and omnicef -: dc iv fluids if she is eating -: encourage po intake, ensure 1 can tid -: PT to mobilize as tolerated -: may switch amiodarone to oral meds if ok with cardio * . continue sitter for now, is pod #1, not oriented daniel per ortho advice will need swing/rehab Review of Systems - Medications/Allergies Allergies/Adverse Reactions: Allergies Allergy/AdvReac Type Severity Reaction Status Date / Time levofloxacin [From Levaquin] Allergy Verified 01/02/18 08:21 Penicillins Allergy Verified 01/02/18 08:21 Medications: Current Medications Acetaminophen (Tylenol) 650 mg PO Q4H PRN PRN Reason: Headache/Fever or Pain Albuterol/Ipratropium (Duoneb) 3 ml NEB [id number] COUNT INCLUDES THE [facility] Last Admin: 01/02/18 10:29 Dose: Not Given Albuterol/Ipratropium (Duoneb) 3 ml NEB Q2H PRN PRN Reason: SOB &/or Wheezing Alprazolam (Xanax) 0.25 mg PO TID PRN PRN Reason: Anxiety Aspirin (Aspirin Chewable) 81 mg PO DAILY COUNT INCLUDES THE [facility] Last Admin: 01/02/18 09:15 Dose: 81 mg Carvedilol (Coreg) 3.125 mg PO BID COUNT INCLUDES THE [facility] Last Admin: 01/02/18 09:16 Dose: 3.125 mg Cefdinir (Omnicef) 300 mg PO BID COUNT INCLUDES THE [facility] Enoxaparin Sodium (Lovenox) 40 mg SC 0900 COUNT INCLUDES THE [facility] Last Admin: 01/02/18 09:16 Dose: 40 mg Famotidine (Pepcid) 20 mg PO DAILY COUNT INCLUDES THE [facility] Last Admin: 01/02/18 09:16 Dose: 20 mg Amiodarone HCl 450 mg/Miscellaneous Medication 1 each/ Dextrose/Water 259 mls @ 0 mls/hr IVPB INF SHELLY; As Directed PRN Reason: Protocol Last Admin: 01/02/18 01:03 Dose: 259 mls Ibuprofen (Motrin) 400 mg PO TID SHELLY Last Admin: 01/02/18 09:15 Dose: 400 mg Lorazepam (Ativan) 1 mg SLOW IVP Q6H PRN PRN Reason: .ANXIETY Last Admin: 01/02/18 01:44 Dose: 1 mg Morphine Sulfate (Morphine) 2 mg SLOW IVP Q4H PRN PRN Reason: Chest Pain/BP Elevations Last Admin: 01/02/18 04:34 Dose: 2 mg Prednisone (Prednisone) 20 mg PO ONE SHELLY Prednisone (Prednisone) 20 mg PO QAM-WM SHELLY Sodium Chloride ([place] Nasal [place] 0.65%) 0 ml EA NARE PRN PRN PRN Reason: Nasal Dryness Last Admin: 01/01/18 20:56 Dose: 1 spr
[2018-01-02] MEDS ORDERED: predniSONE 20 MG TAB PO SCH (11:00)
[2018-01-02] MEDS: Ibuprofen 200 MG TAB PO SCH ×3 (11:02→20:25)
[2018-01-02] MEDS: Carvedilol 3.125 MG TAB PO SCH ×2 (11:03→20:24)
[2018-01-02] MEDS: Enoxaparin Sodium 40 MG/0.4 ML SYRINGE SC SCH (11:03)
[2018-01-02] MEDS: Famotidine 20 MG TAB PO SCH (11:03)
[2018-01-02] MEDS: Cefdinir 300 MG CAP PO SCH (20:25)
[2018-01-02] MEDS: ALPRAZolam 0.25 MG TAB PO PRN (20:25)
--- NOTE | 2018-01-02 22:15 | PRG ---
DATE OF SERVICE: 01/02/2018 SERVICE: Pulmonary Medicine. INTERVAL HISTORY: The patient is doing fine from a respiratory standpoint. She tried to get weaned off of oxygen today. Sats fell to 87%. With 1 liter nasal cannula, she maintains 98% saturation. She had her hip pinyesterday. Since then, she developed a fairly significant delirium. Otherwise, there has been no events. PHYSICAL EXAMINATION: VITAL SIGNS: Afebrile, pulse 91, blood pressure 181/84, respirations 18, saturation 100% on 2 liters nasal cannula. GENERAL: The patient is awake and alert, in no apparent distress. LUNGS: Decent air entry. There is no prolonged expiratory phase or wheezing. HEART: Normal rate, regular. ABDOMEN: Soft, nontender, nondistended. Bowel sounds are positive. MUSCULOSKELETAL: No cyanosis or clubbing. No pitting in the bilateral lower extremities. NEUROLOGIC: Grossly nonfocal. LABORATORY DATA: Creatinine 1.31 and previously up trending. Basic metabolic profile was otherwise unremarkable. Hemoglobin 12.8. Blood cultures x2 and respiratory cultures are negative to date. ASSESSMENT: 1. Acute hypoxic respiratory failure. 2. Chronic obstructive pulmonary disease without current exacerbation, suspected. 3. Left femoral neck fracture status post percutaneous screw fixation. 4. Chronic hypercapnic respiratory failure. 5. Delirium. DISCUSSION AND PLAN: We will remove the Dalal catheter. We will try to make certain we get her out of bed and into a chair 3 times daily. We will increase as tolerated. Hopefully, multiple lines and tubes will be removed and the patient will clear her acute confusional state faster. We will continue making efforts at weaning oxygen away. Pulmonary Critical Care will continue to follow along. DANTE
[2018-01-03] MEDS: Cefdinir 300 MG CAP PO SCH ×2 (09:09→19:57)
[2018-01-03] MEDS: Ibuprofen 200 MG TAB PO SCH ×3 (09:09→19:57)
[2018-01-03] MEDS: Carvedilol 3.125 MG TAB PO SCH (09:09)
[2018-01-03] MEDS: Famotidine 20 MG TAB PO SCH (09:10)
[2018-01-03] MEDS: Enoxaparin Sodium 40 MG/0.4 ML SYRINGE SC SCH (09:10)
[2018-01-03] MEDS: predniSONE 20 MG TAB PO SCH (09:10)
--- NOTE | 2018-01-03 10:37 | PDOC.PN ---
- Subjective Encounter Start Date: 01/03/18 Encounter Start Time: 07:35 Subjective: is calm and on bed -: responds to verbal stimuli -: not fully oriented still, no sob, has cough+ - Objective Resuscitation Status: Resuscitation Status FULL:Full Resuscitation MAR Reviewed: Yes Vital Signs & Weight: Vital Signs (12 hours) Temp Pulse Resp BP Pulse Ox 01/03/18 09:00 97.0 F L 88 25 H 96 01/03/18 07:14 97.0 F L 88 25 H 169/74 H 96 01/03/18 06:48 92 18 95 01/03/18 04:00 97.4 F L 91 16 149/67 H 98 01/03/18 00:29 82 16 99 01/03/18 00:00 142/65 H Weight Admit Weight 120 lb 14.4 oz Weight 120 lb 1.6 oz I&O: 01/02/18 01/03/18 01/04/18 06:59 06:59 06:59 Intake Total 950 600 Output Total 1350 1550 Balance -400 -950 Result Diagrams: 01/01/18 04:05 01/01/18 04:05 Phys Exam - Physical Examination HEENT: PERRLA, sclera anicteric Neck: no JVD, supple Respiratory: no wheezing, no rales rhonchi+ Cardiovascular: RRR, no significant murmur Gastrointestinal: soft, non-tender, positive bowel sounds Musculoskeletal: pulses present left hip dressing + Neurological: non-focal, moves all 4 limbs Dx/Plan (1) Afib Code(s): I48.91 - UNSPECIFIED ATRIAL FIBRILLATION Status: Acute Qualifiers: Atrial fibrillation type: paroxysmal Qualified Code(s): I48.0 - Paroxysmal atrial fibrillation Comment: in sinus rhythm, on amiod drip (2) COPD (chronic obstructive pulmonary disease) Status: Chronic Qualifiers: COPD type: COPD with acute exacerbation Qualified Code(s): J44.1 - Chronic obstructive pulmonary disease with (acute) exacerbation (3) CHF (NYHA class II, ACC/AHA stage C) Code(s): I50.9 - HEART FAILURE, UNSPECIFIED Status: Acute Comment: diastolic dysfunction (4) Fracture of femoral neck, left, closed Code(s): S72.002A - FRACTURE OF UNSP PART OF NECK OF LEFT FEMUR, INIT Status: Acute Comment: s/p percut screw fixation 01/01/2018 (5) Dementia Code(s): F03.90 - UNSPECIFIED DEMENTIA WITHOUT BEHAVIORAL DISTURBANCE Status: Chronic Qualifiers: Dementia type: unspecified type Dementia behavioral disturbance: with behavioral disturbance Qualified Code(s): F03.91 - Unspecified dementia with behavioral disturbance (6) HTN (hypertension) Code(s): I10 - ESSENTIAL (PRIMARY) HYPERTENSION Status: Chronic Qualifiers: Hypertension type: essential hypertension Qualified Code(s): I10 - Essential (primary) hypertension - Plan has voided after daniel was removed yesterday -: continue nebs, pred and omnicef. Seroquel 25mg HS -: is on amiod drip, may tx to medsurg once she is on oral amiod -: PT to amb as tolerated per ortho advice -: will need swing/rehab for dc plan * . Review of Systems - Medications/Allergies Allergies/Adverse Reactions: Allergies Allergy/AdvReac Type Severity Reaction Status Date / Time levofloxacin [From Levaquin] Allergy Verified 01/02/18 08:21 Penicillins Allergy Verified 01/02/18 08:21 Medications: Current Medications Acetaminophen (Tylenol) 650 mg PO Q4H PRN PRN Reason: Headache/Fever or Pain Albuterol/Ipratropium (Duoneb) 3 ml NEB Q2H PRN PRN Reason: SOB &/or Wheezing Albuterol/Ipratropium (Duoneb) 3 ml NEB [id number] [facility] Last Admin: 01/03/18 06:48 Dose: 3 ml Alprazolam (Xanax) 0.25 mg PO TID PRN PRN Reason: Anxiety Last Admin: 01/02/18 20:25 Dose: 0.25 mg Aspirin (Aspirin Chewable) 81 mg PO DAILY [facility] Last Admin: 01/03/18 09:10 Dose: 81 mg Carvedilol (Coreg) 3.125 mg PO BID [facility] Last Admin: 01/03/18 09:09 Dose: 3.125 mg Cefdinir (Omnicef) 300 mg PO BID [facility] Last Admin: 01/03/18 09:09 Dose: 300 mg Enoxaparin Sodium (Lovenox) 40 mg SC 0900 [facility] Last Admin: 01/03/18 09:10 Dose: 40 mg Famotidine (Pepcid) 20 mg PO DAILY [facility] Last Admin: 01/03/18 09:10 Dose: 20 mg Amiodarone HCl 450 mg/Miscellaneous Medication 1 each/ Dextrose/Water 259 mls @ 0 mls/hr IVPB INF SHELLY; As Directed PRN Reason: Protocol Last Admin: 01/02/18 01:03 Dose: 259 mls Ibuprofen (Motrin) 400 mg PO TID [facility] Last Admin: 01/03/18 09:09 Dose: 400 mg Morphine Sulfate (Morphine) 2 mg SLOW IVP Q4H PRN PRN Reason: Chest Pain/BP Elevations Last Admin: 01/02/18 04:34 Dose: 2 mg Prednisone (Prednisone) 20 mg PO QAM-WM [facility] Last Admin: 01/03/18 09:10 Dose: 20 mg Quetiapine Fumarate (Seroquel) 25 mg PO HS [facility] Last Admin: 01/02/18 20:24 Dose: 25 mg Sodium Chloride ([place] Nasal [place] 0.65%) 0 ml EA NARE PRN PRN PRN Reason: Nasal Dryness Last Admin: 01/01/18 20:56 Dose: 1 spr
[2018-01-03] MEDS ORDERED: Amlodipine 10 MG TAB PO SCH (14:15)
[2018-01-03] MEDS: Amiodarone HCl 450 MG, Admixture Fee 1 EACH in Dextrose 5% in Water 250 ML IVPB SCH (14:44)
[2018-01-03] MEDS ORDERED: Bisacodyl 10 MG SUPP PR PRN (16:47)
[2018-01-03] MEDS ORDERED: Atenolol 25 MG TAB PO SCH (17:00)
[2018-01-03] MEDS ORDERED: Docusate 100 MG CAP PO SCH ×2 (17:00→21:00)
[2018-01-03] MEDS: ALPRAZolam 0.25 MG TAB PO PRN (19:57)
[2018-01-03] MEDS: Amiodarone 200 MG TAB PO SCH (19:57)
[2018-01-03] MEDS: Lisinopril 10 MG TAB PO SCH (19:58)
--- NOTE | 2018-01-03 21:20 | PRG ---
DATE OF SERVICE: 01/03/2018 SERVICE: Pulmonary Medicine. INTERVAL HISTORY: The patient is doing outstanding from a respiratory standpoint. She denies any ch est pain, nausea, vomiting, fevers or chills. She is breathing very comfortably. She is on room air . She has no specific complaints. PHYSICAL EXAMINATION: VITAL SIGNS: Afebrile, pulse 82, respirations 15, saturation 95% on room air, blood pressure 185/87. HEENT: Normocephalic, atraumatic. Sclerae are white, conjunctivae pink. Oral mucosa is moist witho ut lesions. LUNGS: Decent air entry. There is no prolonged expiratory phase, wheezing, rhonchi or crackles. HEART: Normal rate, regular. ABDOMEN: Soft, nontender, nondistended. Bowel sounds are positive. MUSCULOSKELETAL: No cyanosis or clubbing. There is no pitting in the bilateral lower extremities. Tenting is present. GENITOURINARY: No Dalal catheter in place. NEUROLOGIC: Grossly nonfocal. LABORATORY DATA: WBC 11.5, hemoglobin 12.8, platelets 220,000. ASSESSMENT: 1. Acute hypoxic respiratory failure, resolved. 2. Chronic obstructive pulmonary disease without current exacerbation. 3. Left femoral neck fracture, with percutaneous screw fixation. 4. Chronic hypercapnic respiratory failure. 5. Delirium, improved. PLAN: We will continue our mobility exercises. From a purely respiratory perspective, the patient i s stable for transition out of the hospital. Pulmonary will continue to follow intermittently while the patient remains in this location.
[2018-01-04] MEDS: Cefdinir 300 MG CAP PO SCH ×2 (08:54→19:37)
[2018-01-04] MEDS: Amlodipine 10 MG TAB PO SCH (08:54)
[2018-01-04] MEDS: Atenolol 50 MG TAB PO SCH (08:54)
[2018-01-04] MEDS: Amiodarone 200 MG TAB PO SCH ×2 (08:54→19:37)
[2018-01-04] MEDS: predniSONE 20 MG TAB PO SCH (08:54)
[2018-01-04] MEDS: Ibuprofen 200 MG TAB PO SCH (08:55)
[2018-01-04] MEDS: Enoxaparin Sodium 40 MG/0.4 ML SYRINGE SC SCH (08:55)
[2018-01-04] MEDS: Lisinopril 10 MG TAB PO SCH ×2 (08:55→19:37)
[2018-01-04] MEDS: Polyethylene Glycol 3350 17 GM Packet PO SCH (08:55)
[2018-01-04] MEDS: Famotidine 20 MG TAB PO SCH (08:55)
[2018-01-04] MEDS ORDERED: Docusate 100 MG CAP PO SCH (09:00)
[2018-01-04 09:19] LABS: #Basophils 0.1 thou/uL (0.0-0.2); #Eosinphils 0.1 thou/uL (0.0-0.7); #Lymphocytes 1.6 thou/uL (1.20-3.40); #Monocytes 1.4 thou/uL (0.11-0.59); #Neutrophils 9.2 thou/uL (1.40-6.50); %Basophils 0.8 % (0.0-1.0); %Eosinophils 0.8 % (0.0-10.0); %Lymphocytes 13.2 % (21.0-51.0); %Monocytes 11.1 % (0.0-10.0); %Neutrophils 74.1 % (42.0-75.0); Hemoglobin 13.2 g/dL (12.0-16.0); Mean Corpuscular HGB CONC 32.5 g/dL (32.0-36.0); Mean Corpuscular Hemoglobin 33.8 pg (27.0-31.0); Mean Platelet Volume 6.7 fL (7.4-10.4); Platelet Count 283 thou/uL (130-400); RBC Distribution Width 11.8 % (11.5-14.5); White Blood Cell (WBC) Count 12.4 thou/uL (4.8-10.8)
[2018-01-04 09:53] LABS: BUN (Urea Nitrogen) 21 mg/dL (9.8-20.1); Calc. Creatinine Clearance 52 mL/min (70-130); Calcium 9.2 mg/dL (7.8-10.44); Carbon Dioxide 36 mmol/L (23-31); Chloride 98 mmol/L (98-107); Estimated GFR-MDRD 78; Glucose 153 mg/dL (83-110); Potassium 3.5 mmol/L (3.5-5.1); Sodium 140 mmol/L (136-145)
--- NOTE | 2018-01-04 10:05 | PDOC.CTH ---
Cardiology Progress Note - Subjective Awake, complains only of left hip pain, worse when OOB. Denies chest pain, shortness of breath, dizziness, N/V/D. Tolerating PT. Alert, oriented person/ place/situation, more alert today per family. No overnight events, maintaining SR. - Objective Vital Signs Temp Pulse Resp BP Pulse Ox 01/04/18 07:44 98.5 F 85 18 135/61 95 01/04/18 06:10 79 16 98 01/04/18 04:00 97.6 F 82 20 145/67 H 97 01/04/18 00:57 82 16 98 01/03/18 23:27 97.8 F 88 20 144/68 H 92 L Admit Weight 120 lb 14.4 oz Weight 119 lb 6.4 oz 01/03/18 01/04/18 01/05/18 06:59 06:59 06:59 Intake Total 600 Output Total 1550 Balance -950 - Physical Examination General/Neuro: alert & oriented x3, NAD Neck: no JVD present Lungs: CTA, unlabored respirations Heart: RRR Abdomen: NT/ND - Telemetry Telemetry Rhythm: SR - Labs Result Diagrams: 01/04/18 09:08 01/04/18 09:08 Troponin/CKMB CK-MB (CK-2) 2.2 ng/mL (0-6.6) 12/30/17 20:59 Troponin I 0.067 ng/mL (< 0.028) H 12/31/17 03:38 - Assessment/Plan 1. Left hip fracture, S/P repair, stable. 2. COPD exacerbation-continue pulm toilet, supplemental O2. 3. Diastolic HF-appears euvolemic 4. Paroxysmal AFib-maintaining SR, on PO amiodarone 5. HTN-adequately controlled
[2018-01-04 10:15] LABS: Anion Gap 10 mmol/L (10-20)
--- NOTE | 2018-01-04 10:36 | PDOC.PN ---
- Subjective Encounter Start Date: 01/04/18 Encounter Start Time: 10:34 Patient seen and examined, states that she has some pain on the hip when she puts weight on it. Just returned from walking, no other new issues, no family at bed side, all questions answered. - Objective Resuscitation Status: Resuscitation Status FULL:Full Resuscitation Vital Signs & Weight: Vital Signs (12 hours) Temp Pulse Resp BP Pulse Ox 01/04/18 07:48 98.5 F 85 18 95 01/04/18 07:44 98.5 F 85 18 135/61 95 01/04/18 06:10 79 16 98 01/04/18 04:00 97.6 F 82 20 145/67 H 97 01/04/18 00:57 82 16 98 01/03/18 23:27 97.8 F 88 20 144/68 H 92 L Weight Admit Weight 120 lb 14.4 oz Weight 119 lb 6.4 oz I&O: 01/03/18 01/04/18 01/05/18 06:59 06:59 06:59 Intake Total 600 Output Total 1550 Balance -950 Result Diagrams: 01/04/18 09:08 01/04/18 09:08 Phys Exam - Physical Examination Constitutional: NAD HEENT: PERRLA, moist MMs, sclera anicteric Neck: no nodes, no JVD, supple, full ROM Respiratory: no wheezing, no rales, no rhonchi Cardiovascular: RRR, no significant murmur, no rub Gastrointestinal: soft, non-tender, no distention, positive bowel sounds Musculoskeletal: no edema, pulses present hip pain with movement Neurological: non-focal, normal sensation Psychiatric: normal affect, A&O x 3 Dx/Plan (1) Afib Code(s): I48.91 - UNSPECIFIED ATRIAL FIBRILLATION Status: Acute Qualifiers: Atrial fibrillation type: paroxysmal Qualified Code(s): I48.0 - Paroxysmal atrial fibrillation Comment: in sinus rhythm, on amiod drip (2) CHF (NYHA class II, ACC/AHA stage C) Code(s): I50.9 - HEART FAILURE, UNSPECIFIED Status: Acute Comment: diastolic dysfunction (3) Fracture of femoral neck, left, closed Code(s): S72.002A - FRACTURE OF UNSP PART OF NECK OF LEFT FEMUR, INIT Status: Acute Comment: s/p percut screw fixation 01/01/2018 (4) COPD (chronic obstructive pulmonary disease) Status: Chronic Qualifiers: COPD type: COPD with acute exacerbation Qualified Code(s): J44.1 - Chronic obstructive pulmonary disease with (acute) exacerbation (5) Dementia Code(s): F03.90 - UNSPECIFIED DEMENTIA WITHOUT BEHAVIORAL DISTURBANCE Status: Chronic Qualifiers: Dementia type: unspecified type Dementia behavioral disturbance: with behavioral disturbance Qualified Code(s): F03.91 - Unspecified dementia with behavioral disturbance (6) HTN (hypertension) Code(s): I10 - ESSENTIAL (PRIMARY) HYPERTENSION Status: Chronic Qualifiers: Hypertension type: essential hypertension Qualified Code(s): I10 - Essential (primary) hypertension - Plan * pain control * cont PT/OT * will provide PRN medication for constipation * pending rehab placement per insurance approval * DC once rehab arranged * case and plan d/w patient at length, she undrstands and agrees with this plan
--- NOTE | 2018-01-04 12:16 | PRG ---
DATE OF SERVICE: 01/04/2018 Sophie Strange has no new complaints. She says she is feeling a little better. PHYSICAL EXAMINATION: VITAL SIGNS: She is afebrile, heart rate is 85, respiratory rate is 18, oximetry is 95. She had her nasal cannula under her chin. This was placed back in her nose. Her blood pressure 135/61. LUNGS: Remarkable for distant breath sounds. Lungs are free of wheezes at the time of exam this mor melissa. HEART: Regular rhythm. ABDOMEN: Soft. LABORATORY DATA: White count is 12.4, hemoglobin 13.2, platelets 283. Sodium 140, potassium 3.5, chloride 98, bicarbonate 36, BUN 21, creatinine 0.7. IMPRESSION: 1. Chronic obstructive pulmonary disease. 2. Status post femur fracture. 3. Encephalopathy that is more or less stable. 4. Cachexia and frail state with deconditioning. 5. History of diastolic heart failure. 6. History of atrial fibrillation on amiodarone. 7. History of hypertension. PLAN: Continue supportive care with physical therapy and placement.
--- NOTE | 2018-01-04 12:39 | RAD ---
KUB: DATE: 01/04/18. COMPARISON: None. HISTORY: Abdominal pain and constipation. FINDINGS: Three cannulated lag screws traverse the left femoral neck, incompletely imaged. There is prominent degenerative change involving the lumbar spine. The descending thoracic aorta is calcified and tortu ous. The bowel gas pattern appears nonobstructed. IMPRESSION: Nonobstructed bowel gas pattern. POS: [facility]
[2018-01-04] MEDS: ALPRAZolam 0.25 MG TAB PO PRN ×2 (15:06→19:37)
[2018-01-05 05:48] LABS: Anion Gap 9 mmol/L (10-20); BUN (Urea Nitrogen) 20 mg/dL (9.8-20.1); Calc. Creatinine Clearance 55 mL/min (70-130); Calcium 9.1 mg/dL (7.8-10.44); Carbon Dioxide 37 mmol/L (23-31); Chloride 97 mmol/L (98-107); Estimated GFR-MDRD 84; Glucose 89 mg/dL (83-110); Potassium 3.7 mmol/L (3.5-5.1); Sodium 139 mmol/L (136-145)
[2018-01-05 06:27] LABS: Band 16 % (5-11); Eosinophils 1 % (0-10); Hemoglobin 12.6 g/dL (12.0-16.0); Lymphocytes 15 % (21-51); MDiff Complete? YES; Mean Corpuscular HGB CONC 31.8 g/dL (32.0-36.0); Mean Corpuscular Hemoglobin 32.7 pg (27.0-31.0); Mean Platelet Volume 6.8 fL (7.4-10.4); Monocytes 13 % (0-10); Neutrophil 55 % (42-75); Platelet Count 295 thou/uL (130-400); RBC Distribution Width 11.6 % (11.5-14.5); Red Blood Cell (RBC) Count 3.85 mill/uL (4.20-5.40); White Blood Cell (WBC) Count 12.2 thou/uL (4.8-10.8)
[2018-01-05] MEDS: Acetaminophen 325 MG TAB PO PRN ×3 (07:27→20:22)
[2018-01-05] MEDS: predniSONE 20 MG TAB PO SCH (08:24)
[2018-01-05] MEDS: Amlodipine 10 MG TAB PO SCH (08:24)
[2018-01-05] MEDS: Amiodarone 200 MG TAB PO SCH ×2 (08:24→20:22)
[2018-01-05] MEDS: Atenolol 50 MG TAB PO SCH (08:25)
[2018-01-05] MEDS: Famotidine 20 MG TAB PO SCH (08:26)
[2018-01-05] MEDS: Cefdinir 300 MG CAP PO SCH ×2 (08:26→20:22)
[2018-01-05] MEDS: Enoxaparin Sodium 40 MG/0.4 ML SYRINGE SC SCH (08:26)
[2018-01-05] MEDS: Lisinopril 10 MG TAB PO SCH ×2 (08:27→20:22)
[2018-01-05] MEDS: Polyethylene Glycol 3350 17 GM Packet PO SCH (08:27)
[2018-01-05] MEDS: ALPRAZolam 0.25 MG TAB PO PRN ×3 (08:27→20:22)
--- NOTE | 2018-01-05 08:57 | PRG ---
DATE OF SERVICE: 01/05/2018 The patient is doing well, had no acute complaints. PHYSICAL EXAMINATION: VITAL SIGNS: Temperature is 98.1, pulse 76, respiratory rate 14, 94% on 1 liter, blood pressure 156/ 68. HEENT: Unremarkable. NECK: No JVD. CHEST: Clear without wheezing. CARDIAC: S1 and S2 regular. ABDOMEN: Soft. EXTREMITIES: No edema. LABORATORY: White blood cell count 12.2, hematocrit 39.6, platelet count 295. Sodium 139, potassium 3.7, chloride 97, CO2 37, BUN 20, creatinine 0.6, glucose 89. ASSESSMENT: 1. Chronic obstructive pulmonary disease. 2. Status post repair of femur fracture. 3. Cachexia. 4. History of atrial fibrillation. 5. History of hypertension. PLAN: She appears ready for rehab. Her pulmonary status is stable. She needs to continue nebulizat ion therapy. If she gets well and recovers back to baseline, then she should consider further workup of her COPD as an outpatient.
--- NOTE | 2018-01-05 12:37 | PDOC.PN ---
- Subjective Encounter Start Date: 01/05/18 Encounter Start Time: 12:35 Patient seen and examined, no new issues, all questions answered. - Objective Resuscitation Status: Resuscitation Status FULL:Full Resuscitation Vital Signs & Weight: Vital Signs (12 hours) Temp Pulse Resp BP Pulse Ox 01/05/18 08:18 76 14 94 L 01/05/18 07:35 98.1 F 76 14 94 L 01/05/18 07:29 98.1 F 88 18 158/68 H 94 L 01/05/18 04:00 97.8 F 82 17 142/65 H 94 L Weight Admit Weight 120 lb 14.4 oz Weight 119 lb 6.4 oz I&O: 01/04/18 01/05/18 01/06/18 06:59 06:59 06:59 Intake Total 900 Balance 900 Result Diagrams: 01/05/18 04:24 01/05/18 04:24 Phys Exam - Physical Examination Constitutional: NAD HEENT: PERRLA, moist MMs, sclera anicteric, TM's clear Neck: no nodes, no JVD, supple, full ROM Respiratory: no wheezing, no rales, no rhonchi Cardiovascular: RRR, no significant murmur, no rub Gastrointestinal: soft, non-tender, no distention, positive bowel sounds Musculoskeletal: no edema, pulses present Neurological: non-focal, normal sensation Psychiatric: normal affect, A&O x 3 Skin: no rash, normal turgor Dx/Plan (1) Afib Code(s): I48.91 - UNSPECIFIED ATRIAL FIBRILLATION Status: Acute Qualifiers: Atrial fibrillation type: paroxysmal Qualified Code(s): I48.0 - Paroxysmal atrial fibrillation Comment: in sinus rhythm, on amiod drip (2) CHF (NYHA class II, ACC/AHA stage C) Code(s): I50.9 - HEART FAILURE, UNSPECIFIED Status: Acute Comment: diastolic dysfunction (3) Fracture of femoral neck, left, closed Code(s): S72.002A - FRACTURE OF UNSP PART OF NECK OF LEFT FEMUR, INIT Status: Acute Comment: s/p percut screw fixation 01/01/2018 (4) COPD (chronic obstructive pulmonary disease) Status: Chronic Qualifiers: COPD type: COPD with acute exacerbation Qualified Code(s): J44.1 - Chronic obstructive pulmonary disease with (acute) exacerbation (5) Dementia Code(s): F03.90 - UNSPECIFIED DEMENTIA WITHOUT BEHAVIORAL DISTURBANCE Status: Chronic Qualifiers: Dementia type: unspecified type Dementia behavioral disturbance: with behavioral disturbance Qualified Code(s): F03.91 - Unspecified dementia with behavioral disturbance (6) HTN (hypertension) Code(s): I10 - ESSENTIAL (PRIMARY) HYPERTENSION Status: Chronic Qualifiers: Hypertension type: essential hypertension Qualified Code(s): I10 - Essential (primary) hypertension - Plan * Pending rehab placement, DC to rehab once arranged * continue other medical management without change * case and plan d/w patient at length, she understands and agrees with this plan
--- NOTE | 2018-01-05 18:17 | PDOC.CTH ---
Cardiology Progress Note - Subjective She is doing better. She is awake but has moments were she gets confused and starts telling me she is afraid "they" are listening to her and she cannot elaborate on it. She denies any chest pain, tightness, pressure, her SOB is at baseline. - Objective Vital Signs Temp Pulse Pulse Pulse Resp BP BP 01/05/18 16:43 98.9 F 84 16 01/05/18 14:49 90 78 112/56 L 118/58 L 01/05/18 14:04 71 16 01/05/18 09:39 83 86 134/63 119/56 L 01/05/18 08:18 76 14 01/05/18 07:35 98.1 F 76 14 01/05/18 07:29 98.1 F 88 18 BP Pulse Ox Pulse Ox Pulse Ox 01/05/18 16:43 111/55 L 97 01/05/18 14:49 92 L 91 L 01/05/18 14:04 5 L 01/05/18 09:39 94 L 92 L 01/05/18 08:18 94 L 01/05/18 07:35 94 L 01/05/18 07:29 158/68 H 94 L Admit Weight 120 lb 14.4 oz Weight 119 lb 6.4 oz 01/04/18 01/05/18 01/06/18 06:59 06:59 06:59 Intake Total 900 Balance 900 - Physical Examination General/Neuro: alert & oriented x3, NAD Neck: no JVD present Lungs: CTA, unlabored respirations Heart: RRR Abdomen: NT/ND Extremities: other: (no edema.) - Telemetry Telemetry Rhythm: NSR - Labs Result Diagrams: 01/05/18 04:24 01/05/18 04:24 Troponin/CKMB CK-MB (CK-2) 2.2 ng/mL (0-6.6) 12/30/17 20:59 Troponin I 0.067 ng/mL (< 0.028) H 12/31/17 03:38 - Assessment/Plan 1. Left hip fracture. S/P repair. 2. COPD exacerbation. 3. Diastolic heart failure, stable, euvolemic. 4. RV dysfunction likely from COPD PLAN: - I do not think she will need fluid restriction or low salt diet. - Her initial presentation was diarrhea and she fell and broke her hip. - She is euvolemic and I would not limit her diet given her low weight.
[2018-01-06 05:19] LABS: BUN (Urea Nitrogen) 13 mg/dL (9.8-20.1); Calc. Creatinine Clearance 56 mL/min (70-130); Calcium 8.8 mg/dL (7.8-10.44); Estimated GFR-MDRD 86; Glucose 89 mg/dL (83-110)
[2018-01-06 05:22] LABS: Eosinophils 1 % (0-10); Hemoglobin 12.4 g/dL (12.0-16.0); Lymphocytes 17 % (21-51); MDiff Complete? YES; Mean Corpuscular HGB CONC 33.1 g/dL (32.0-36.0); Mean Corpuscular Hemoglobin 34.4 pg (27.0-31.0); Mean Platelet Volume 6.7 fL (7.4-10.4); Monocytes 10 % (0-10); Neutrophil 72 % (42-75); Platelet Count 331 thou/uL (130-400); RBC Distribution Width 11.6 % (11.5-14.5); Red Blood Cell (RBC) Count 3.61 mill/uL (4.20-5.40); White Blood Cell (WBC) Count 10.6 thou/uL (4.8-10.8)
[2018-01-06 05:29] LABS: Anion Gap 9 mmol/L (10-20); Carbon Dioxide 37 mmol/L (23-31); Chloride 98 mmol/L (98-107); Potassium 3.9 mmol/L (3.5-5.1); Sodium 140 mmol/L (136-145)
[2018-01-06] MEDS: Acetaminophen 325 MG TAB PO PRN ×2 (07:55→21:33)
--- NOTE | 2018-01-06 09:13 | PRG ---
DATE OF SERVICE: 01/06/2018 SUBJECTIVE: The patient is complaining about eyesight and sweating. Otherwise, seems to be doing we ll. OBJECTIVE: VITAL SIGNS: Temperature 97.9, pulse 83, respirations 18, O2 sat 98% on 1 liter, blood pressure 137/ 63. HEENT: Unremarkable. NECK: No JVD. CHEST: Fairly clear without wheezing or rhonchi. CARDIAC: S1 and S2 regular. ABDOMEN: Soft. EXTREMITIES: No edema. LABORATORY DATA: White blood cell count 10.6, hematocrit 37.5, platelet count 331. Sodium 140, pota ssium 3.9, chloride 98, CO2 37, BUN 13, creatinine 0.6, glucose 89. ASSESSMENT: 1. Status post hip fracture repair. 2. Underlying chronic obstructive pulmonary disease. 3. Atrial fibrillation. PLAN: She seems to be back to her baseline and ready for rehabilitation. No further suggestions fro m a pulmonary standpoint. Please recall if further assistance needed.
[2018-01-06] MEDS: predniSONE 20 MG TAB PO SCH (09:16)
[2018-01-06] MEDS: Enoxaparin Sodium 40 MG/0.4 ML SYRINGE SC SCH (09:17)
[2018-01-06] MEDS: ALPRAZolam 0.25 MG TAB PO PRN ×2 (09:17→21:34)
[2018-01-06] MEDS: Lisinopril 10 MG TAB PO SCH ×2 (09:17→21:34)
[2018-01-06] MEDS: Famotidine 20 MG TAB PO SCH ×2 (09:17→21:35)
[2018-01-06] MEDS: Atenolol 50 MG TAB PO SCH (09:17)
[2018-01-06] MEDS: Amiodarone 200 MG TAB PO SCH ×2 (09:17→21:34)
[2018-01-06] MEDS: Cefdinir 300 MG CAP PO SCH ×2 (09:17→21:35)
[2018-01-06] MEDS: Amlodipine 10 MG TAB PO SCH (09:17)
[2018-01-06] MEDS: Polyethylene Glycol 3350 17 GM Packet PO SCH (09:18)
--- NOTE | 2018-01-06 11:14 | PDOC.PN ---
- Subjective Encounter Start Date: 01/06/18 Encounter Start Time: 10:00 Patient is seen today, alert and oriented , she says she is not able to see clearly since the fall and says that was main resons for fall too, She also c/o neck pain and is keeping ice , pain raditing to the right shoulder from her neck and it hurst on turning to right side. No imaging was done in the ER. - Objective Resuscitation Status: Resuscitation Status FULL:Full Resuscitation MAR Reviewed: Yes Vital Signs & Weight: Vital Signs (12 hours) Temp Pulse Resp BP Pulse Ox 01/06/18 07:53 97.9 F 82 18 98 01/06/18 07:47 97.9 F 82 18 137/63 98 01/06/18 07:32 96 01/06/18 07:31 70 16 96 01/06/18 04:00 98 F 80 20 124/60 97 01/06/18 00:54 73 14 94 L Weight Admit Weight 120 lb 14.4 oz Weight 127 lb 1.6 oz I&O: 01/05/18 01/06/18 01/07/18 06:59 06:59 06:59 Intake Total 900 1210 Balance 900 1210 Result Diagrams: 01/06/18 04:47 01/06/18 04:47 Phys Exam - Physical Examination HEENT: PERRLA, moist MMs Neck: no nodes, no JVD Respiratory: no wheezing, no rales Cardiovascular: RRR, no significant murmur Gastrointestinal: soft, non-tender Musculoskeletal: no edema, pulses present Neurological: non-focal, normal sensation Lymphatic: no nodes Psychiatric: normal affect, A&O x 3 Dx/Plan (1) Blurred vision, bilateral Code(s): H53.8 - OTHER VISUAL DISTURBANCES Status: Acute Comment: Patient unable to see 5-6 ft distance letters on the board, she had cataract surgery on left eye and feels some twitching in her eye, Will do CT head to look for any ischemia to occipetal area of the brain. (2) Cervical pain (neck) Code(s): M54.2 - CERVICALGIA Status: Acute Comment: Neck pain with no cervical spine tendrness , but urts constantly, need to r/o minor hairline fractures of spine after the fall, will do CT cervical spine. (3) Afib Code(s): I48.91 - UNSPECIFIED ATRIAL FIBRILLATION Status: Acute Qualifiers: Atrial fibrillation type: paroxysmal Qualified Code(s): I48.0 - Paroxysmal atrial fibrillation Comment: in sinus rhythm, on amiod tab po BID (4) CHF (NYHA class II, ACC/AHA stage C) Code(s): I50.9 - HEART FAILURE, UNSPECIFIED Status: Acute Comment: diastolic dysfunction, stbale. (5) Fracture of femoral neck, left, closed Code(s): S72.002A - FRACTURE OF UNSP PART OF NECK OF LEFT FEMUR, INIT Status: Acute Comment: s/p percut screw fixation 01/01/2018 (6) COPD (chronic obstructive pulmonary disease) Status: Chronic Qualifiers: COPD type: COPD with acute exacerbation Qualified Code(s): J44.1 - Chronic obstructive pulmonary disease with (acute) exacerbation Comment: NO EXCAERBATION NOTED. sTBALE BREATHING ON 2 LITER NASAL CANULA. (7) Dementia Code(s): F03.90 - UNSPECIFIED DEMENTIA WITHOUT BEHAVIORAL DISTURBANCE Status: Chronic Qualifiers: Dementia type: unspecified type Dementia behavioral disturbance: with behavioral disturbance Qualified Code(s): F03.91 - Unspecified dementia with behavioral disturbance (8) HTN (hypertension) Code(s): I10 - ESSENTIAL (PRIMARY) HYPERTENSION Status: Chronic Qualifiers: Hypertension type: essential hypertension Qualified Code(s): I10 - Essential (primary) hypertension Comment: stbale. at goal. - Plan cont current plan of care, PT/OT, social security assessor, respiratory therapy, incentive spirometry, DVT proph w/lovenox * . Review of Systems - Review of Systems Constitutional: malaise Eyes: Vision Change. negative: Pain, Conjunctivae Inflammation, Eyelid Inflammation, Redness, Other ENT: negative: Ear Pain, Ear Discharge, Nose Pain, Nose Discharge, Nose Congestion, Mouth Pain, Mouth Swelling, Throat Pain, Throat Swelling, Other Respiratory: negative: Cough, Dry, Shortness of Breath, Hemoptysis, SOB with Excertion, Pleuritic Pain, Sputum, Wheezing Cardiovascular: negative: chest pain, palpitations, orthopnea, paroxysmal nocturnal dyspnea, edema, light headedness, other Gastrointestinal: negative: Nausea, Vomiting, Abdominal Pain, Diarrhea, Constipation, Melena, Hematochezia, Other Genitourinary: negative: Dysuria, Frequency, Incontinence, Hematuria, Retention , Other Musculoskeletal: Neck Pain, Shoulder Pain Skin: negative: Rash, Lesions, Patricio, Bruising, Other Neurological: Weakness - Medications/Allergies Allergies/Adverse Reactions: Allergies Allergy/AdvReac Type Severity Reaction Status Date / Time levofloxacin [From Levaquin] Allergy Verified 01/02/18 08:21 Penicillins Allergy Verified 01/02/18 08:21 Medications: Current Medications Acetaminophen (Tylenol) 650 mg PO Q4H PRN PRN Reason: Headache/Fever or Pain Last Admin: 01/06/18 07:55 Dose: 650 mg Albuterol/Ipratropium (Duoneb) 3 ml NEB Q2H PRN PRN Reason: SOB &/or Wheezing Albuterol/Ipratropium (Duoneb) 3 ml NEB [id number] [facility] Last Admin: 01/06/18 07:31 Dose: 3 ml Alprazolam (Xanax) 0.25 mg PO TID PRN PRN Reason: Anxiety Last Admin: 01/06/18 09:17 Dose: 0.25 mg Amiodarone HCl (Cordarone) 400 mg PO BID [facility] Last Admin: 01/06/18 09:17 Dose: 400 mg Amlodipine Besylate (Norvasc) 10 mg PO DAILY [facility] Last Admin: 01/06/18 09:17 Dose: 10 mg Aspirin (Aspirin Chewable) 81 mg PO DAILY [facility] Last Admin: 01/06/18 09:17 Dose: 81 mg Atenolol (Tenormin) 50 mg PO DAILY [facility] Last Admin: 01/06/18 09:17 Dose: 50 mg Cefdinir (Omnicef) 300 mg PO BID [facility] Last Admin: 01/06/18 09:17 Dose: 300 mg Enoxaparin Sodium (Lovenox) 40 mg SC 0900 [facility] Last Admin: 01/06/18 09:17 Dose: 40 mg Famotidine (Pepcid) 20 mg PO DAILY [facility] Last Admin: 01/06/18 09:17 Dose: 20 mg Lisinopril (Zestril) 10 mg PO BID [facility] Last Admin: 01/06/18 09:17 Dose: 10 mg Morphine Sulfate (Morphine) 2 mg SLOW IVP Q4H PRN PRN Reason: Chest Pain/BP Elevations Last Admin: 01/02/18 04:34 Dose: 2 mg Polyethylene Glycol (Miralax) 17 gm PO DAILY [facility] Last Admin: 01/06/18 09:18 Dose: Not Given Prednisone (Prednisone) 20 mg PO QAM-WM [facility] Last Admin: 01/06/18 09:16 Dose: 20 mg Quetiapine Fumarate (Seroquel) 25 mg PO HS [facility] Last Admin: 01/05/18 20:22 Dose: 25 mg Sodium Chloride ([place] Nasal [place] 0.65%) 0 ml EA NARE PRN PRN PRN Reason: Nasal Dryness Last Admin: 01/01/18 20:56 Dose: 1 spr
--- NOTE | 2018-01-06 12:49 | PDOC.CTH ---
Cardiology Progress Note - Subjective No new issues. Remains waxing and waning with her mentation. - Objective Vital Signs Temp Pulse Pulse Pulse Resp BP BP 01/06/18 10:44 82 84 134/62 135/62 01/06/18 07:53 97.9 F 82 18 01/06/18 07:47 97.9 F 82 18 01/06/18 07:32 01/06/18 07:31 70 16 01/06/18 04:00 98 F 80 20 01/06/18 00:54 73 14 BP Pulse Ox Pulse Ox Pulse Ox 01/06/18 10:44 96 94 L 01/06/18 07:53 98 01/06/18 07:47 137/63 98 01/06/18 07:32 96 01/06/18 07:31 96 01/06/18 04:00 124/60 97 01/06/18 00:54 94 L Admit Weight 120 lb 14.4 oz Weight 127 lb 1.6 oz 01/05/18 01/06/18 01/07/18 06:59 06:59 06:59 Intake Total 900 1210 Balance 900 1210 - Physical Examination General/Neuro: alert & oriented x3, NAD Neck: no JVD present Lungs: unlabored respirations, other: (reduced breath sounds. ) Heart: RRR Abdomen: NT/ND Extremities: other: (no edema) - Telemetry Telemetry Rhythm: NSR - Labs Result Diagrams: 01/06/18 04:47 01/06/18 04:47 Troponin/CKMB CK-MB (CK-2) 2.2 ng/mL (0-6.6) 12/30/17 20:59 Troponin I 0.067 ng/mL (< 0.028) H 12/31/17 03:38 - Assessment/Plan 1. Left hip fracture. S/P repair. 2. COPD exacerbation. 3. Diastolic heart failure, stable, euvolemic. 4. RV dysfunction likely from COPD PLAN: - No need for fluid restriction or low salt diet. - She is euvolemic and I would not limit her diet given her low weight. - Continue current regimen. - No lasix on discharge. - Will sign off. Please call with any questions.
--- NOTE | 2018-01-06 13:26 | CT ---
HEAD CT WITHOUT CONTRAST: Date: 01/06/18 HISTORY: Blurred vision. Recent falls. COMPARISON: 05/19/13. TECHNIQUE: Noncontrast head CT is performed from skull base to skull vertex. FINDINGS: No parenchymal hemorrhage. No extra-axial hematoma. No midline shift. Basilar cisterns are patent. Ag e-appropriate atrophy. Cortical mao-white matter differentiation is preserved. Ventricles and sulci are patent and symmetric. Chronic small vessel ischemic changes of the white matter identified. Calvarium is intact. Adequate aeration of the sinuses and mastoid air cells. Cavernous carotid athero sclerosis is noted. IMPRESSION: 1. No acute intracranial process. 2. No intracranial post-traumatic sequelae. 3. Age-appropriate atrophy. 4. Chronic small vessel ischemic changes of white matter are noted. POS: [facility]
--- NOTE | 2018-01-06 13:39 | CT ---
CT CERVICAL SPINE WITHOUT CONTRAST: Date: 01/06/18 COMPARISON: 05/19/13. HISTORY: Trauma. Fall. Pain. Syncope. TECHNIQUE: CT cervical spine is performed without contrast. Reformatted images are submitted for interpretation. FINDINGS: There is stable anterolisthesis of C3 upon C4 and retrolisthesis of C4 upon C5. Stable osteophyte for mation of the cervical spine at C4, C5, and C6. Lateral masses of C1 and C2 articulate appropriately. Intact odontoid process. There are degenerative changes of the facets. No prevertebral soft tissue swelling. No epidural hematoma. Varying degrees of central canal stenosis and foraminal narrowing on the basis of degenerative change. Soft tissue neck structures, upper mediastinum, and lung apices are unremarkable. Evidence of previou s right carotid endarterectomy. Significant calcified plaque in the left carotid artery. Evaluation i s limited. Cervical spine vertebral body height is maintained. No fracture. IMPRESSION: No fracture. POS: [facility]
[2018-01-07 06:13] LABS: Anion Gap 11 mmol/L (10-20); BUN (Urea Nitrogen) 13 mg/dL (9.8-20.1); Calc. Creatinine Clearance 58 mL/min (70-130); Calcium 8.6 mg/dL (7.8-10.44); Carbon Dioxide 33 mmol/L (23-31); Chloride 98 mmol/L (98-107); Estimated GFR-MDRD 83; Glucose 78 mg/dL (83-110); Potassium 3.9 mmol/L (3.5-5.1); Sodium 138 mmol/L (136-145)
[2018-01-07 06:31] LABS: Band 3 % (5-11); Eosinophils 3 % (0-10); Hemoglobin 11.9 g/dL (12.0-16.0); Lymphocytes 17 % (21-51); MDiff Complete? YES; Mean Corpuscular HGB CONC 31.3 g/dL (32.0-36.0); Mean Corpuscular Hemoglobin 32.3 pg (27.0-31.0); Mean Platelet Volume 6.5 fL (7.4-10.4); Monocytes 5 % (0-10); Neutrophil 72 % (42-75); PLT Morphology Comment Appears Adequate; Platelet Count 369 thou/uL (130-400); RBC Distribution Width 11.7 % (11.5-14.5); Red Blood Cell (RBC) Count 3.69 mill/uL (4.20-5.40)
[2018-01-07] MEDS: Acetaminophen 325 MG TAB PO PRN (07:53)
[2018-01-07] MEDS: Amiodarone 200 MG TAB PO SCH ×2 (07:54→21:56)
[2018-01-07] MEDS: predniSONE 20 MG TAB PO SCH (07:54)
[2018-01-07] MEDS: Amlodipine 10 MG TAB PO SCH (07:54)
[2018-01-07] MEDS: Atenolol 50 MG TAB PO SCH (07:54)
[2018-01-07] MEDS: Famotidine 20 MG TAB PO SCH ×2 (07:54→21:56)
[2018-01-07] MEDS: Enoxaparin Sodium 40 MG/0.4 ML SYRINGE SC SCH (07:55)
[2018-01-07] MEDS: Polyethylene Glycol 3350 17 GM Packet PO SCH (07:59)
[2018-01-07] MEDS: Lisinopril 10 MG TAB PO SCH ×2 (08:00→21:58)
[2018-01-07] MEDS: Cefdinir 300 MG CAP PO SCH ×2 (08:09→21:30)
--- NOTE | 2018-01-07 14:01 | PDOC.PN ---
- Subjective Encounter Start Date: 01/07/18 Encounter Start Time: 12:00 Nate is seen today, is Altered today, has severe dementia. Explained her CT head and Cervical spine was normal - Objective Resuscitation Status: Resuscitation Status FULL:Full Resuscitation MAR Reviewed: Yes Vital Signs & Weight: Vital Signs (12 hours) Temp Pulse Resp BP Pulse Ox 01/07/18 11:40 97.9 F 74 18 146/74 H 92 L 01/07/18 08:00 97.4 F L 77 22 H 160/73 H 94 L 01/07/18 07:54 76 01/07/18 04:45 96 01/07/18 04:00 98.0 F 76 18 146/69 H 94 L Weight Admit Weight 120 lb 14.4 oz Weight 118 lb 5 oz I&O: 01/06/18 01/07/18 01/08/18 06:59 06:59 06:59 Intake Total 1210 480 Balance 1210 480 Result Diagrams: 01/07/18 05:15 01/07/18 05:15 Radiology Reviewed by me: Yes Phys Exam - Physical Examination HEENT: PERRLA, moist MMs Neck: no nodes, no JVD Respiratory: no wheezing, no rales Cardiovascular: RRR, no significant murmur Gastrointestinal: soft, non-tender Musculoskeletal: no edema, pulses present Neurological: non-focal, normal sensation Lymphatic: no nodes Psychiatric: normal affect Dx/Plan (1) Blurred vision, bilateral Code(s): H53.8 - OTHER VISUAL DISTURBANCES Status: Acute Comment: Patient unable to see 5-6 ft distance letters on the board, she had cataract surgery on left eye and feels some twitching in her eye, CT head normal, Will mencourage pt to follow up with opthalmology outpatient. (2) Cervical pain (neck) Code(s): M54.2 - CERVICALGIA Status: Acute Comment: Neck pain with no cervical spine tendrness , but urts constantly, need to r/o minor hairline fractures of spine after the fall, Ct cervical spine normal, no fractures. (3) Afib Code(s): I48.91 - UNSPECIFIED ATRIAL FIBRILLATION Status: Acute Qualifiers: Atrial fibrillation type: paroxysmal Qualified Code(s): I48.0 - Paroxysmal atrial fibrillation Comment: in sinus rhythm, on amiod tab po BID (4) CHF (NYHA class II, ACC/AHA stage C) Code(s): I50.9 - HEART FAILURE, UNSPECIFIED Status: Acute Comment: diastolic dysfunction, stbale. (5) Fracture of femoral neck, left, closed Code(s): S72.002A - FRACTURE OF UNSP PART OF NECK OF LEFT FEMUR, INIT Status: Acute Comment: s/p percut screw fixation 01/01/2018 (6) COPD (chronic obstructive pulmonary disease) Status: Chronic Qualifiers: COPD type: COPD with acute exacerbation Qualified Code(s): J44.1 - Chronic obstructive pulmonary disease with (acute) exacerbation Comment: NO EXCAERBATION NOTED. sTBALE BREATHING ON 2 LITER NASAL CANULA. (7) Dementia Code(s): F03.90 - UNSPECIFIED DEMENTIA WITHOUT BEHAVIORAL DISTURBANCE Status: Chronic Qualifiers: Dementia type: unspecified type Dementia behavioral disturbance: with behavioral disturbance Qualified Code(s): F03.91 - Unspecified dementia with behavioral disturbance (8) HTN (hypertension) Code(s): I10 - ESSENTIAL (PRIMARY) HYPERTENSION Status: Chronic Qualifiers: Hypertension type: essential hypertension Qualified Code(s): I10 - Essential (primary) hypertension Comment: stbale. at goal. - Plan cont current plan of care, continue antibiotics, PT/OT, nursing home social worker, incentive spirometry, out of bed/ambulate, DVT proph w/lovenox * . Review of Systems - Review of Systems Respiratory: negative: Cough, Dry, Shortness of Breath, Hemoptysis, SOB with Excertion, Pleuritic Pain, Sputum, Wheezing Cardiovascular: negative: chest pain, palpitations, orthopnea, paroxysmal nocturnal dyspnea, edema, light headedness, other Gastrointestinal: negative: Nausea, Vomiting, Abdominal Pain, Diarrhea, Constipation, Melena, Hematochezia, Other Musculoskeletal: Neck Pain. negative: Shoulder Pain, Arm Pain, Back Pain, Hand Pain, Leg Pain, Foot Pain, Other - Medications/Allergies Allergies/Adverse Reactions: Allergies Allergy/AdvReac Type Severity Reaction Status Date / Time levofloxacin [From Levaquin] Allergy Verified 01/02/18 08:21 Penicillins Allergy Verified 01/02/18 08:21 Medications: Current Medications Acetaminophen (Tylenol) 650 mg PO Q4H PRN PRN Reason: Headache/Fever or Pain Last Admin: 01/07/18 07:53 Dose: 650 mg Albuterol/Ipratropium (Duoneb) 3 ml NEB Q2H PRN PRN Reason: SOB &/or Wheezing Albuterol/Ipratropium (Duoneb) 3 ml NEB [id number] [facility] Last Admin: 01/07/18 10:12 Dose: Not Given Alprazolam (Xanax) 0.25 mg PO TID PRN PRN Reason: Anxiety Last Admin: 01/06/18 21:34 Dose: 0.25 mg Amiodarone HCl (Cordarone) 400 mg PO BID [facility] Last Admin: 01/07/18 07:54 Dose: 400 mg Amlodipine Besylate (Norvasc) 10 mg PO DAILY [facility] Last Admin: 01/07/18 07:54 Dose: 10 mg Aspirin (Aspirin Chewable) 81 mg PO DAILY [facility] Last Admin: 01/07/18 07:54 Dose: 81 mg Atenolol (Tenormin) 50 mg PO DAILY [facility] Last Admin: 01/07/18 07:54 Dose: 50 mg Cefdinir (Omnicef) 300 mg PO BID [facility] Last Admin: 01/07/18 08:09 Dose: 300 mg Enoxaparin Sodium (Lovenox) 40 mg SC 0900 [facility] Last Admin: 01/07/18 07:55 Dose: 40 mg Famotidine (Pepcid) 20 mg PO BID [facility] Last Admin: 01/07/18 07:54 Dose: 20 mg Lisinopril (Zestril) 10 mg PO BID [facility] Last Admin: 01/07/18 08:00 Dose: 10 mg Morphine Sulfate (Morphine) 2 mg SLOW IVP Q4H PRN PRN Reason: Chest Pain/BP Elevations Last Admin: 01/02/18 04:34 Dose: 2 mg Polyethylene Glycol (Miralax) 17 gm PO DAILY [facility] Last Admin: 01/07/18 07:59 Dose: Not Given Prednisone (Prednisone) 20 mg PO QAM-WM [facility] Last Admin: 01/07/18 07:54 Dose: 20 mg Quetiapine Fumarate (Seroquel) 25 mg PO HS [facility] Last Admin: 01/06/18 21:33 Dose: 25 mg Sodium Chloride ([place] Nasal [place] 0.65%) 0 ml EA NARE PRN PRN PRN Reason: Nasal Dryness Last Admin: 01/01/18 20:56 Dose: 1 spr
[2018-01-07] MEDS ORDERED: Artificial Tears 18 DROP/0.9 ML EA EYE PRN (14:40)
[2018-01-07] MEDS: Nystatin Powder 15 GM BOT TOP SCH (21:56)
[2018-01-07] MEDS: BIOTENE MOUTH SPRAY 44.3 ML MM SCH (21:57)
[2018-01-07] MEDS: Artificial Tears 18 DROP/0.9 ML EA EYE SCH (21:59)
[2018-01-08] MEDS: Amiodarone 200 MG TAB PO SCH ×2 (08:59→22:17)
[2018-01-08] MEDS: predniSONE 20 MG TAB PO SCH (08:59)
[2018-01-08] MEDS: Amlodipine 10 MG TAB PO SCH (08:59)
[2018-01-08] MEDS: Famotidine 20 MG TAB PO SCH ×2 (08:59→22:17)
[2018-01-08] MEDS: Cefdinir 300 MG CAP PO SCH ×2 (09:00→22:18)
[2018-01-08] MEDS: Atenolol 50 MG TAB PO SCH (09:00)
[2018-01-08] MEDS: Lisinopril 10 MG TAB PO SCH ×2 (09:00→22:18)
[2018-01-08] MEDS: BIOTENE MOUTH SPRAY 44.3 ML MM SCH ×2 (09:00→22:19)
[2018-01-08] MEDS: Artificial Tears 18 DROP/0.9 ML EA EYE SCH ×2 (09:00→22:19)
[2018-01-08] MEDS: Enoxaparin Sodium 40 MG/0.4 ML SYRINGE SC SCH (09:01)
[2018-01-08] MEDS: Polyethylene Glycol 3350 17 GM Packet PO SCH (09:01)
[2018-01-08] MEDS: Nystatin Powder 15 GM BOT TOP SCH ×2 (09:01→22:29)
[2018-01-08] MEDS: ALPRAZolam 0.25 MG TAB PO PRN (22:18)
[2018-01-09] MEDS: Nystatin Powder 15 GM BOT TOP SCH ×2 (08:23→22:13)
[2018-01-09] MEDS: BIOTENE MOUTH SPRAY 44.3 ML MM SCH ×2 (08:24→21:28)
[2018-01-09] MEDS: Enoxaparin Sodium 40 MG/0.4 ML SYRINGE SC SCH (08:25)
[2018-01-09] MEDS: Artificial Tears 18 DROP/0.9 ML EA EYE SCH ×2 (08:25→22:13)
[2018-01-09] MEDS: Lisinopril 10 MG TAB PO SCH ×2 (08:26→21:27)
[2018-01-09] MEDS: Atenolol 50 MG TAB PO SCH (08:26)
[2018-01-09] MEDS: Amiodarone 200 MG TAB PO SCH ×2 (08:26→21:26)
[2018-01-09] MEDS: Amlodipine 10 MG TAB PO SCH (08:26)
[2018-01-09] MEDS: Polyethylene Glycol 3350 17 GM Packet PO SCH (08:27)
[2018-01-09] MEDS: Famotidine 20 MG TAB PO SCH ×2 (08:27→21:25)
[2018-01-09] MEDS: predniSONE 20 MG TAB PO SCH (08:27)
[2018-01-09] MEDS: Cefdinir 300 MG CAP PO SCH ×3 (08:27→22:24)
[2018-01-09] MEDS ORDERED: Clopidogrel Bisulfate 75 MG TAB ONE (10:32)
--- NOTE | 2018-01-09 11:33 | PDOC.PN ---
- Subjective Encounter Start Date: 01/08/18 Encounter Start Time: 11:00 Patient is seen today, disoriened, on and off. Waiting on Rehab bed which was denied. - Objective Resuscitation Status: Resuscitation Status FULL:Full Resuscitation MAR Reviewed: Yes Vital Signs & Weight: Vital Signs (12 hours) Temp Pulse Resp BP BP BP Pulse Ox 01/09/18 09:10 98.1 F 82 20 92 L 01/09/18 08:26 82 127/63 01/09/18 07:38 98.1 F 82 20 127/63 92 L 01/09/18 06:59 96 01/09/18 06:38 97 01/09/18 06:35 77 20 97 01/09/18 04:00 97.8 F 73 22 H 119/66 94 L 01/09/18 03:00 93 L 01/08/18 23:54 97.6 F 74 16 102/62 93 L Weight Admit Weight 120 lb 14.4 oz Weight 111 lb 4 oz I&O: 01/08/18 01/09/18 01/10/18 06:59 06:59 06:59 Intake Total 1180 1930 Balance 1180 1930 Result Diagrams: 01/07/18 05:15 01/07/18 05:15 Radiology Reviewed by me: Yes Phys Exam - Physical Examination HEENT: PERRLA, moist MMs Neck: no nodes, no JVD Respiratory: no wheezing, no rales Cardiovascular: RRR, no significant murmur Gastrointestinal: soft, non-tender Musculoskeletal: no edema, pulses present Neurological: non-focal, normal sensation Lymphatic: no nodes Dx/Plan (1) Blurred vision, bilateral Code(s): H53.8 - OTHER VISUAL DISTURBANCES Status: Acute Comment: Patient unable to see 5-6 ft distance letters on the board, she had cataract surgery on left eye and feels some twitching in her eye, CT head normal, Will mencourage pt to follow up with opthalmology outpatient. (2) Cervical pain (neck) Code(s): M54.2 - CERVICALGIA Status: Acute Comment: Neck pain with no cervical spine tendrness , but urts constantly, need to r/o minor hairline fractures of spine after the fall, Ct cervical spine normal, no fractures. (3) Afib Code(s): I48.91 - UNSPECIFIED ATRIAL FIBRILLATION Status: Acute Qualifiers: Atrial fibrillation type: paroxysmal Qualified Code(s): I48.0 - Paroxysmal atrial fibrillation Comment: in sinus rhythm, on amiod tab po BID (4) CHF (NYHA class II, ACC/AHA stage C) Code(s): I50.9 - HEART FAILURE, UNSPECIFIED Status: Acute Comment: diastolic dysfunction, stbale. (5) Fracture of femoral neck, left, closed Code(s): S72.002A - FRACTURE OF UNSP PART OF NECK OF LEFT FEMUR, INIT Status: Acute Comment: s/p percut screw fixation 01/01/2018 (6) COPD (chronic obstructive pulmonary disease) Status: Chronic Qualifiers: COPD type: COPD with acute exacerbation Qualified Code(s): J44.1 - Chronic obstructive pulmonary disease with (acute) exacerbation Comment: NO EXCAERBATION NOTED. sTBALE BREATHING ON 2 LITER NASAL CANULA. (7) Dementia Code(s): F03.90 - UNSPECIFIED DEMENTIA WITHOUT BEHAVIORAL DISTURBANCE Status: Chronic Qualifiers: Dementia type: unspecified type Dementia behavioral disturbance: with behavioral disturbance Qualified Code(s): F03.91 - Unspecified dementia with behavioral disturbance (8) HTN (hypertension) Code(s): I10 - ESSENTIAL (PRIMARY) HYPERTENSION Status: Chronic Qualifiers: Hypertension type: essential hypertension Qualified Code(s): I10 - Essential (primary) hypertension Comment: stbale. at goal. - Plan cont current plan of care, PT/OT, psychotherapist social worker, incentive spirometry, DVT proph w/SCDs Will need SNF evalautions, pt is able to Walk 300ft per Nurse. Pt Rehab is denied by insurance, pt has right hip fracturee and poor vision, high risk for falls, need Physical dencditioning at SNF. Review of Systems - Review of Systems Respiratory: negative: Cough, Dry, Shortness of Breath, Hemoptysis, SOB with Excertion, Pleuritic Pain, Sputum, Wheezing Cardiovascular: negative: chest pain, palpitations, orthopnea, paroxysmal nocturnal dyspnea, edema, light headedness, other Gastrointestinal: negative: Nausea, Vomiting, Abdominal Pain, Diarrhea, Constipation, Melena, Hematochezia, Other - Medications/Allergies Allergies/Adverse Reactions: Allergies Allergy/AdvReac Type Severity Reaction Status Date / Time levofloxacin [From Levaquin] Allergy Verified 01/02/18 08:21 Penicillins Allergy Verified 01/02/18 08:21 Medications: Current Medications Acetaminophen (Tylenol) 650 mg PO Q4H PRN PRN Reason: Headache/Fever or Pain Last Admin: 01/07/18 07:53 Dose: 650 mg Albuterol/Ipratropium (Duoneb) 3 ml NEB Q2H PRN PRN Reason: SOB &/or Wheezing Albuterol/Ipratropium (Duoneb) 3 ml NEB [id number] [facility] [place] Last Admin: 01/09/18 06:35 Dose: 3 ml Alprazolam (Xanax) 0.25 mg PO TID PRN PRN Reason: Anxiety Last Admin: 01/08/18 22:18 Dose: 0.25 mg Amiodarone HCl (Cordarone) 400 mg PO BID [facility] [place] Last Admin: 01/09/18 08:26 Dose: 400 mg Amlodipine Besylate (Norvasc) 10 mg PO DAILY [facility] Last Admin: 01/09/18 08:26 Dose: 10 mg Artificial Tears (Tears Naturale) 1 drop EA EYE BID [facility] Last Admin: 01/09/18 08:25 Dose: 1 drop Artificial Tears (Tears Naturale) 1 drop EA EYE PRN PRN PRN Reason: DRY EYES Aspirin (Aspirin Chewable) 81 mg PO DAILY [facility] [place] Last Admin: 01/09/18 08:27 Dose: 81 mg Atenolol (Tenormin) 50 mg PO DAILY [facility] [place] Last Admin: 01/09/18 08:26 Dose: 50 mg Cefdinir (Omnicef) 300 mg PO BID [facility] [place] Last Admin: 01/09/18 08:27 Dose: 300 mg Enoxaparin Sodium (Lovenox) 40 mg SC 0900 [facility] [place] Last Admin: 01/09/18 08:25 Dose: 40 mg Famotidine (Pepcid) 20 mg PO BID [facility] [place] Last Admin: 01/09/18 08:27 Dose: 20 mg Lisinopril (Zestril) 10 mg PO BID [facility] [place] Last Admin: 01/09/18 08:26 Dose: 10 mg Miscellaneous Medication (Biotene Moisturizing Mouth) 0 ml MM BID [facility] Last Admin: 01/09/18 08:24 Dose: 1 spr Morphine Sulfate (Morphine) 2 mg SLOW IVP Q4H PRN PRN Reason: Chest Pain/BP Elevations Last Admin: 01/02/18 04:34 Dose: 2 mg Nystatin (Mycostatin Powder) 0 gm TOP BID [facility] [place] Last Admin: 01/09/18 08:23 Dose: 1 applic Polyethylene Glycol (Miralax) 17 gm PO DAILY [facility] [place] Last Admin: 01/09/18 08:27 Dose: Not Given Prednisone (Prednisone) 20 mg PO QAM-WM [facility] [place] Last Admin: 01/09/18 08:27 Dose: 20 mg Quetiapine Fumarate (Seroquel) 25 mg PO HS [facility] [place] Last Admin: 01/08/18 22:17 Dose: 25 mg Sodium Chloride ([place] Nasal [place] 0.65%) 0 ml EA NARE PRN PRN PRN Reason: Nasal Dryness Last Admin: 01/01/18 20:56 Dose: 1 spr Sodium Chloride (Flush - Normal Saline) 10 ml IVF Q12HR [facility] [place] [place] Last Admin: 01/09/18 08:28 Dose: 10 ml Sodium Chloride (Flush - Normal Saline) 10 ml IVF PRN PRN PRN Reason: Saline Flush
--- NOTE | 2018-01-09 15:38 | PDOC.PN ---
- Subjective Encounter Start Date: 01/09/18 Encounter Start Time: 12:00 Patient has worseing Demntia and is getting delirius at times, She is aslking questions repeatedly even after explaining multiple times, she will need SNF placement for physical deconditioning. - Objective Resuscitation Status: Resuscitation Status FULL:Full Resuscitation MAR Reviewed: Yes Vital Signs & Weight: Vital Signs (12 hours) Temp Pulse Resp BP BP BP Pulse Ox 01/09/18 13:19 79 98 01/09/18 12:00 98.3 F 73 20 119/64 95 01/09/18 09:10 98.1 F 82 20 92 L 01/09/18 08:26 82 127/63 01/09/18 07:38 98.1 F 82 20 127/63 92 L 01/09/18 06:59 96 01/09/18 06:38 97 01/09/18 06:35 77 20 97 01/09/18 04:00 97.8 F 73 22 H 119/66 94 L Weight Admit Weight 120 lb 14.4 oz Weight 111 lb 4 oz I&O: 01/08/18 01/09/18 01/10/18 06:59 06:59 06:59 Intake Total 1180 1930 Balance 1180 1930 Result Diagrams: 01/07/18 05:15 01/07/18 05:15 Radiology Reviewed by me: Yes Phys Exam - Physical Examination HEENT: PERRLA, moist MMs Neck: no nodes, no JVD Respiratory: no wheezing, no rales Cardiovascular: RRR, no significant murmur Gastrointestinal: soft, non-tender Musculoskeletal: no edema, pulses present Neurological: non-focal, normal sensation Dx/Plan (1) Blurred vision, bilateral Code(s): H53.8 - OTHER VISUAL DISTURBANCES Status: Acute Comment: Patient unable to see 5-6 ft distance letters on the board, she had cataract surgery on left eye and feels some twitching in her eye, CT head normal, Will mencourage pt to follow up with opthalmology outpatient. (2) Cervical pain (neck) Code(s): M54.2 - CERVICALGIA Status: Acute Comment: Neck pain with no cervical spine tendrness , but urts constantly, need to r/o minor hairline fractures of spine after the fall, Ct cervical spine normal, no fractures. (3) Afib Code(s): I48.91 - UNSPECIFIED ATRIAL FIBRILLATION Status: Acute Qualifiers: Atrial fibrillation type: paroxysmal Qualified Code(s): I48.0 - Paroxysmal atrial fibrillation Comment: in sinus rhythm, on amiod tab po BID (4) CHF (NYHA class II, ACC/AHA stage C) Code(s): I50.9 - HEART FAILURE, UNSPECIFIED Status: Acute Comment: diastolic dysfunction, stbale. (5) Fracture of femoral neck, left, closed Code(s): S72.002A - FRACTURE OF UNSP PART OF NECK OF LEFT FEMUR, INIT Status: Acute Comment: s/p percut screw fixation 01/01/2018 (6) COPD (chronic obstructive pulmonary disease) Status: Chronic Qualifiers: COPD type: COPD with acute exacerbation Qualified Code(s): J44.1 - Chronic obstructive pulmonary disease with (acute) exacerbation Comment: NO EXCAERBATION NOTED. sTBALE BREATHING ON 2 LITER NASAL CANULA. (7) Dementia Code(s): F03.90 - UNSPECIFIED DEMENTIA WITHOUT BEHAVIORAL DISTURBANCE Status: Chronic Qualifiers: Dementia type: unspecified type Dementia behavioral disturbance: with behavioral disturbance Qualified Code(s): F03.91 - Unspecified dementia with behavioral disturbance (8) HTN (hypertension) Code(s): I10 - ESSENTIAL (PRIMARY) HYPERTENSION Status: Chronic Qualifiers: Hypertension type: essential hypertension Qualified Code(s): I10 - Essential (primary) hypertension Comment: stbale. at goal. - Plan cont current plan of care, plan discussed w/ family, PT/OT, social work administrator, speech therapy, incentive spirometry, out of bed/ambulate, DVT proph w/lovenox * . Review of Systems - Review of Systems Constitutional: weakness Eyes: negative: Pain, Vision Change, Conjunctivae Inflammation, Eyelid Inflammation, Redness, Other ENT: negative: Ear Pain, Ear Discharge, Nose Pain, Nose Discharge, Nose Congestion, Mouth Pain, Mouth Swelling, Throat Pain, Throat Swelling, Other Respiratory: negative: Cough, Dry, Shortness of Breath, Hemoptysis, SOB with Excertion, Pleuritic Pain, Sputum, Wheezing Cardiovascular: negative: chest pain, palpitations, orthopnea, paroxysmal nocturnal dyspnea, edema, light headedness, other Gastrointestinal: negative: Nausea, Vomiting, Abdominal Pain, Diarrhea, Constipation, Melena, Hematochezia, Other Musculoskeletal: Neck Pain. negative: Shoulder Pain, Arm Pain, Back Pain, Hand Pain, Leg Pain, Foot Pain, Other Neurological: Weakness, Confusion - Medications/Allergies Allergies/Adverse Reactions: Allergies Allergy/AdvReac Type Severity Reaction Status Date / Time levofloxacin [From Levaquin] Allergy Verified 01/02/18 08:21 Penicillins Allergy Verified 01/02/18 08:21 Medications: Current Medications Acetaminophen (Tylenol) 650 mg PO Q4H PRN PRN Reason: Headache/Fever or Pain Last Admin: 01/07/18 07:53 Dose: 650 mg Albuterol/Ipratropium (Duoneb) 3 ml NEB Q2H PRN PRN Reason: SOB &/or Wheezing Albuterol/Ipratropium (Duoneb) 3 ml NEB [id number] [facility] Last Admin: 01/09/18 13:19 Dose: 3 ml Alprazolam (Xanax) 0.25 mg PO TID PRN PRN Reason: Anxiety Last Admin: 01/08/18 22:18 Dose: 0.25 mg Amiodarone HCl (Cordarone) 400 mg PO BID [facility] Last Admin: 01/09/18 08:26 Dose: 400 mg Amlodipine Besylate (Norvasc) 10 mg PO DAILY [facility] Last Admin: 01/09/18 08:26 Dose: 10 mg Artificial Tears (Tears Naturale) 1 drop EA EYE BID [facility] Last Admin: 01/09/18 08:25 Dose: 1 drop Artificial Tears (Tears Naturale) 1 drop EA EYE PRN PRN PRN Reason: DRY EYES Aspirin (Aspirin Chewable) 81 mg PO DAILY [facility] Last Admin: 01/09/18 08:27 Dose: 81 mg Atenolol (Tenormin) 50 mg PO DAILY [facility] Last Admin: 01/09/18 08:26 Dose: 50 mg Cefdinir (Omnicef) 300 mg PO BID [facility] Last Admin: 01/09/18 08:27 Dose: 300 mg Enoxaparin Sodium (Lovenox) 40 mg SC 0900 [facility] Last Admin: 01/09/18 08:25 Dose: 40 mg Famotidine (Pepcid) 20 mg PO BID [facility] Last Admin: 01/09/18 08:27 Dose: 20 mg Lisinopril (Zestril) 10 mg PO BID [facility] Last Admin: 01/09/18 08:26 Dose: 10 mg Miscellaneous Medication (Biotene Moisturizing Mouth) 0 ml MM BID [facility] Last Admin: 01/09/18 08:24 Dose: 1 spr Morphine Sulfate (Morphine) 2 mg SLOW IVP Q4H PRN PRN Reason: Chest Pain/BP Elevations Last Admin: 01/02/18 04:34 Dose: 2 mg Nystatin (Mycostatin Powder) 0 gm TOP BID [facility] Last Admin: 01/09/18 08:23 Dose: 1 applic Polyethylene Glycol (Miralax) 17 gm PO DAILY [facility] Last Admin: 01/09/18 08:27 Dose: Not Given Prednisone (Prednisone) 20 mg PO QAM-WM [facility] Last Admin: 01/09/18 08:27 Dose: 20 mg Quetiapine Fumarate (Seroquel) 25 mg PO HS [facility] Last Admin: 01/08/18 22:17 Dose: 25 mg Sodium Chloride ([place] Nasal [place] 0.65%) 0 ml EA NARE PRN PRN PRN Reason: Nasal Dryness Last Admin: 01/01/18 20:56 Dose: 1 spr Sodium Chloride (Flush - Normal Saline) 10 ml IVF Q12HR [facility] Last Admin: 01/09/18 08:28 Dose: 10 ml Sodium Chloride (Flush - Normal Saline) 10 ml IVF PRN PRN PRN Reason: Saline Flush
[2018-01-09] MEDS: ALPRAZolam 0.25 MG TAB PO PRN (21:27)
[2018-01-10] MEDS: ALPRAZolam 0.25 MG TAB PO PRN (07:31)
[2018-01-10] MEDS: predniSONE 20 MG TAB PO SCH (08:09)
[2018-01-10] MEDS: Amlodipine 10 MG TAB PO SCH (08:09)
[2018-01-10] MEDS: Amiodarone 200 MG TAB PO SCH ×2 (08:10→22:52)
[2018-01-10] MEDS: Artificial Tears 18 DROP/0.9 ML EA EYE SCH ×2 (08:11→22:53)
[2018-01-10] MEDS: Cefdinir 300 MG CAP PO SCH ×2 (08:12→22:52)
[2018-01-10] MEDS: Famotidine 20 MG TAB PO SCH ×2 (08:12→22:51)
[2018-01-10] MEDS: Lisinopril 10 MG TAB PO SCH ×2 (08:12→22:51)
[2018-01-10] MEDS: Atenolol 50 MG TAB PO SCH (08:12)
[2018-01-10] MEDS: Polyethylene Glycol 3350 17 GM Packet PO SCH ×2 (08:13→08:23)
[2018-01-10] MEDS: BIOTENE MOUTH SPRAY 44.3 ML MM SCH ×2 (08:14→22:53)
[2018-01-10] MEDS: Enoxaparin Sodium 40 MG/0.4 ML SYRINGE SC SCH (08:14)
[2018-01-10] MEDS: Nystatin Powder 15 GM BOT TOP SCH ×2 (08:16→22:53)
--- NOTE | 2018-01-10 15:48 | PDOC.PN ---
- Subjective Encounter Start Date: 01/10/18 Encounter Start Time: 15:59 Patient seen and examined after admission for dementia w delirium, blurred vision, a fib and CHF. Stable, no acute events overnight and no change in clinical status. - Objective Resuscitation Status: Resuscitation Status FULL:Full Resuscitation MAR Reviewed: Yes Vital Signs & Weight: Vital Signs (12 hours) Temp Pulse Resp BP BP BP Pulse Ox 01/10/18 13:59 76 16 95 01/10/18 11:44 98 F 71 18 143/63 H 01/10/18 08:12 69 112/58 L 01/10/18 08:09 69 112/58 L 01/10/18 08:00 97.9 F 69 20 01/10/18 07:55 97.9 F 70 20 112/58 L 95 01/10/18 07:37 72 16 96 01/10/18 04:00 98 F 75 16 108/62 98 Weight Admit Weight 120 lb 14.4 oz Weight 110 lb I&O: 01/09/18 01/10/18 01/11/18 06:59 06:59 06:59 Intake Total 1930 0 480 Balance 1930 0 480 Result Diagrams: 01/07/18 05:15 01/07/18 05:15 Phys Exam - Physical Examination Constitutional: NAD HEENT: PERRLA, moist MMs, sclera anicteric, oral pharynx no lesions Neck: no JVD, supple, full ROM Respiratory: no wheezing, no rales, no rhonchi, clear to auscultation bilateral Cardiovascular: RRR, no significant murmur, no rub Gastrointestinal: soft, non-tender, no distention, positive bowel sounds Musculoskeletal: no edema, pulses present Deviation from normal: A x O x 1. Dx/Plan (1) Physical deconditioning Code(s): R53.81 - OTHER MALAISE Status: Acute Comment: Will need placement. manager hardware consulted. (2) Afib Code(s): I48.91 - UNSPECIFIED ATRIAL FIBRILLATION Status: Chronic Qualifiers: Atrial fibrillation type: paroxysmal Qualified Code(s): I48.0 - Paroxysmal atrial fibrillation Comment: Rate controlled. (3) Blurred vision, bilateral Code(s): H53.8 - OTHER VISUAL DISTURBANCES Status: Chronic Comment: CT head normal, Will follow up with opthalmology outpatient. (4) CHF (NYHA class II, ACC/AHA stage C) Code(s): I50.9 - HEART FAILURE, UNSPECIFIED Status: Chronic Comment: Stable , not in acute exacerbation. Has diastolic dysfunction. (5) Cervical pain (neck) Code(s): M54.2 - CERVICALGIA Status: Chronic (6) Fracture of femoral neck, left, closed Code(s): S72.002A - FRACTURE OF UNSP PART OF NECK OF LEFT FEMUR, INIT Status: Acute Qualifiers: Encounter type: subsequent encounter Fracture healing: with routine healing Qualified Code(s): S72.002D - Fracture of unspecified part of neck of left femur, subsequent encounter for closed fracture with routine healing Comment: Stable s/p percut screw fixation 01/01/2018 (7) COPD (chronic obstructive pulmonary disease) Status: Chronic Qualifiers: COPD type: COPD with acute exacerbation Qualified Code(s): J44.1 - Chronic obstructive pulmonary disease with (acute) exacerbation Comment: Stable. Not in acute exacerbation. (8) Dementia Code(s): F03.90 - UNSPECIFIED DEMENTIA WITHOUT BEHAVIORAL DISTURBANCE Status: Chronic Qualifiers: Dementia type: unspecified type Dementia behavioral disturbance: with behavioral disturbance Qualified Code(s): F03.91 - Unspecified dementia with behavioral disturbance (9) HTN (hypertension) Code(s): I10 - ESSENTIAL (PRIMARY) HYPERTENSION Status: Chronic Qualifiers: Hypertension type: essential hypertension Qualified Code(s): I10 - Essential (primary) hypertension Comment: Well controlled. - Plan cont current plan of care, plan discussed w/ family, PT/OT, social service assistant, DVT proph w/lovenox * . Review of Systems - Medications/Allergies Allergies/Adverse Reactions: Allergies Allergy/AdvReac Type Severity Reaction Status Date / Time levofloxacin [From Levaquin] Allergy Verified 01/02/18 08:21 Penicillins Allergy Verified 01/02/18 08:21 Medications: Current Medications Acetaminophen (Tylenol) 650 mg PO Q4H PRN PRN Reason: Headache/Fever or Pain Last Admin: 01/07/18 07:53 Dose: 650 mg Albuterol/Ipratropium (Duoneb) 3 ml NEB Q2H PRN PRN Reason: SOB &/or Wheezing Albuterol/Ipratropium (Duoneb) 3 ml NEB [id number] Last Admin: 01/10/18 13:59 Dose: 3 ml Amiodarone HCl (Cordarone) 400 mg PO BID [facility] Last Admin: 01/10/18 08:10 Dose: 400 mg Amlodipine Besylate (Norvasc) 10 mg PO DAILY [facility] Last Admin: 01/10/18 08:09 Dose: 10 mg Artificial Tears (Tears Naturale) 1 drop EA EYE BID [facility] Last Admin: 01/10/18 08:11 Dose: 1 drop Artificial Tears (Tears Naturale) 1 drop EA EYE PRN PRN PRN Reason: DRY EYES Aspirin (Aspirin Chewable) 81 mg PO DAILY [facility] Last Admin: 01/10/18 08:11 Dose: 81 mg Atenolol (Tenormin) 50 mg PO DAILY [facility] Last Admin: 01/10/18 08:12 Dose: 50 mg Cefdinir (Omnicef) 300 mg PO BID [facility] Last Admin: 01/10/18 08:12 Dose: 300 mg Enoxaparin Sodium (Lovenox) 40 mg SC 0900 [facility] Last Admin: 01/10/18 08:14 Dose: 40 mg Famotidine (Pepcid) 20 mg PO BID [facility] Last Admin: 01/10/18 08:12 Dose: 20 mg Lisinopril (Zestril) 10 mg PO BID [facility] Last Admin: 01/10/18 08:12 Dose: 10 mg Miscellaneous Medication (Biotene Moisturizing Mouth) 0 ml MM BID [facility] Last Admin: 01/10/18 08:14 Dose: 1 spr Nystatin (Mycostatin Powder) 0 gm TOP BID [facility] Last Admin: 01/10/18 08:16 Dose: 1 applic Polyethylene Glycol (Miralax) 17 gm PO DAILY [facility] Last Admin: 01/10/18 08:23 Dose: Not Given Prednisone (Prednisone) 20 mg PO QAM-WM [facility] Last Admin: 01/10/18 08:09 Dose: 20 mg Quetiapine Fumarate (Seroquel) 25 mg PO HS [facility] Last Admin: 01/09/18 21:26 Dose: 25 mg Sodium Chloride ([place] Nasal [place] 0.65%) 0 ml EA NARE PRN PRN PRN Reason: Nasal Dryness Last Admin: 01/01/18 20:56 Dose: 1 spr Sodium Chloride (Flush - Normal Saline) 10 ml IVF Q12HR [facility] Last Admin: 01/10/18 08:15 Dose: 10 ml Sodium Chloride (Flush - Normal Saline) 10 ml IVF PRN PRN PRN Reason: Saline Flush
[2018-01-11 05:48] LABS: Hemoglobin 10.9 g/dL (12.0-16.0); Mean Corpuscular HGB CONC 33.3 g/dL (32.0-36.0); Mean Corpuscular Hemoglobin 33.8 pg (27.0-31.0); Mean Platelet Volume 6.7 fL (7.4-10.4); Platelet Count 405 thou/uL (130-400); RBC Distribution Width 11.6 % (11.5-14.5); Red Blood Cell (RBC) Count 3.22 mill/uL (4.20-5.40)
[2018-01-11] MEDS ORDERED: Artificial Tear Sol 15 ML BOT EA EYE PRN (05:51)
[2018-01-11 06:05] LABS: Anion Gap 9 mmol/L (10-20); BUN (Urea Nitrogen) 17 mg/dL (9.8-20.1); Calc. Creatinine Clearance 44 mL/min (70-130); Calcium 8.8 mg/dL (7.8-10.44); Carbon Dioxide 28 mmol/L (23-31); Chloride 99 mmol/L (98-107); Estimated GFR-MDRD 71; Glucose 95 mg/dL (83-110); Potassium 3.4 mmol/L (3.5-5.1); Sodium 133 mmol/L (136-145)
[2018-01-11] MEDS: predniSONE 20 MG TAB PO SCH (10:00)
[2018-01-11] MEDS: Amiodarone 200 MG TAB PO SCH (10:00)
[2018-01-11] MEDS: Polyethylene Glycol 3350 17 GM Packet PO SCH (10:00)
[2018-01-11] MEDS: Artificial Tear Sol 15 ML BOT EA EYE SCH ×2 (10:01→21:53)
[2018-01-11] MEDS: Enoxaparin Sodium 40 MG/0.4 ML SYRINGE SC SCH (10:02)
[2018-01-11] MEDS: Nystatin Powder 15 GM BOT TOP SCH ×2 (10:04→21:53)
[2018-01-11] MEDS ORDERED: Potassium Chloride 20 MEQ TAB PO SCH (10:15)
[2018-01-11] MEDS: BIOTENE MOUTH SPRAY 44.3 ML MM SCH ×2 (10:17→21:53)
[2018-01-11] MEDS: Atenolol 50 MG TAB PO SCH (12:06)
[2018-01-11] MEDS: Famotidine 20 MG TAB PO SCH ×2 (12:07→21:09)
[2018-01-11] MEDS: Cefdinir 300 MG CAP PO SCH ×2 (12:07→21:08)
[2018-01-11] MEDS: Amlodipine 10 MG TAB PO SCH (12:08)
[2018-01-11] MEDS: Lisinopril 10 MG TAB PO SCH ×2 (12:38→21:09)
--- NOTE | 2018-01-11 13:16 | PDOC.PN ---
- Subjective Encounter Start Date: 01/11/18 Encounter Start Time: 13:18 Patient seen and examined today. She is on admission for dementia w delirium, blurred vision, a fib and CHF. Stable, no acute events overnight and no change in clinical status. - Objective Resuscitation Status: Resuscitation Status FULL:Full Resuscitation MAR Reviewed: Yes Vital Signs & Weight: Vital Signs (12 hours) Temp Pulse Resp BP BP BP Pulse Ox 01/11/18 12:38 125/69 01/11/18 12:08 76 01/11/18 12:06 76 01/11/18 11:50 98 F 83 20 143/64 H 95 01/11/18 07:53 76 16 97 01/11/18 07:35 98.2 F 82 18 112/53 L 96 01/11/18 03:47 97.9 F 74 20 114/56 L 98 Weight Admit Weight 120 lb 14.4 oz Weight 113 lb 1.6 oz I&O: 01/10/18 01/11/18 01/12/18 06:59 06:59 06:59 Intake Total 0 1480 720 Balance 0 1480 720 Result Diagrams: 01/11/18 04:27 01/11/18 04:27 Phys Exam - Physical Examination Constitutional: NAD HEENT: PERRLA, moist MMs, oral pharynx no lesions Neck: supple, full ROM Respiratory: no wheezing, no rales, no rhonchi, clear to auscultation bilateral Cardiovascular: RRR, no significant murmur, no rub Gastrointestinal: soft, non-tender, no distention, positive bowel sounds Musculoskeletal: no edema, pulses present Skin: no rash, normal turgor Dx/Plan (1) Physical deconditioning Code(s): R53.81 - OTHER MALAISE Status: Acute Comment: Will need placement. internal security manager consulted. (2) Afib Code(s): I48.91 - UNSPECIFIED ATRIAL FIBRILLATION Status: Chronic Qualifiers: Atrial fibrillation type: paroxysmal Qualified Code(s): I48.0 - Paroxysmal atrial fibrillation Comment: Rate controlled. (3) Blurred vision, bilateral Code(s): H53.8 - OTHER VISUAL DISTURBANCES Status: Chronic Comment: CT head normal, Will follow up with opthalmology outpatient. (4) CHF (NYHA class II, ACC/AHA stage C) Code(s): I50.9 - HEART FAILURE, UNSPECIFIED Status: Chronic Comment: Stable , not in acute exacerbation. Has diastolic dysfunction. (5) Cervical pain (neck) Code(s): M54.2 - CERVICALGIA Status: Chronic (6) Fracture of femoral neck, left, closed Code(s): S72.002A - FRACTURE OF UNSP PART OF NECK OF LEFT FEMUR, INIT Status: Acute Qualifiers: Encounter type: subsequent encounter Fracture healing: with routine healing Qualified Code(s): S72.002D - Fracture of unspecified part of neck of left femur, subsequent encounter for closed fracture with routine healing Comment: Stable s/p percut screw fixation 01/01/2018 (7) COPD (chronic obstructive pulmonary disease) Status: Chronic Qualifiers: COPD type: COPD with acute exacerbation Qualified Code(s): J44.1 - Chronic obstructive pulmonary disease with (acute) exacerbation Comment: Stable. Not in acute exacerbation. (8) Dementia Code(s): F03.90 - UNSPECIFIED DEMENTIA WITHOUT BEHAVIORAL DISTURBANCE Status: Chronic Qualifiers: Dementia type: unspecified type Dementia behavioral disturbance: with behavioral disturbance Qualified Code(s): F03.91 - Unspecified dementia with behavioral disturbance (9) HTN (hypertension) Code(s): I10 - ESSENTIAL (PRIMARY) HYPERTENSION Status: Chronic Qualifiers: Hypertension type: essential hypertension Qualified Code(s): I10 - Essential (primary) hypertension Comment: Well controlled. - Plan cont current plan of care, PT/OT, social psychologist, DVT proph w/lovenox * . Review of Systems - Medications/Allergies Allergies/Adverse Reactions: Allergies Allergy/AdvReac Type Severity Reaction Status Date / Time levofloxacin [From Levaquin] Allergy Verified 01/02/18 08:21 Penicillins Allergy Verified 01/02/18 08:21 Medications: Current Medications Acetaminophen (Tylenol) 650 mg PO Q4H PRN PRN Reason: Headache/Fever or Pain Last Admin: 01/07/18 07:53 Dose: 650 mg Albuterol/Ipratropium (Duoneb) 3 ml NEB Q2H PRN PRN Reason: SOB &/or Wheezing Albuterol/Ipratropium (Duoneb) 3 ml NEB [id number] [facility] Last Admin: 01/11/18 07:53 Dose: 3 ml Amiodarone HCl (Cordarone) 400 mg PO BID [facility] Last Admin: 01/11/18 10:00 Dose: 400 mg Amlodipine Besylate (Norvasc) 10 mg PO DAILY [facility] Last Admin: 01/11/18 12:08 Dose: 10 mg Artificial Tears (Tears Renewed 15ml Bottle) 1 drop EA EYE BID [facility] Last Admin: 01/11/18 10:01 Dose: 1 drop Artificial Tears (Tears Renewed 15ml Bottle) 1 drop EA EYE PRN PRN PRN Reason: DRY EYES Aspirin (Aspirin Chewable) 81 mg PO DAILY [facility] Last Admin: 01/11/18 10:00 Dose: 81 mg Atenolol (Tenormin) 50 mg PO DAILY [facility] Last Admin: 01/11/18 12:06 Dose: 50 mg Cefdinir (Omnicef) 300 mg PO BID [facility] Last Admin: 01/11/18 12:07 Dose: 300 mg Enoxaparin Sodium (Lovenox) 40 mg SC 0900 [facility] Last Admin: 01/11/18 10:02 Dose: 40 mg Famotidine (Pepcid) 20 mg PO BID [facility] Last Admin: 01/11/18 12:07 Dose: 20 mg Lisinopril (Zestril) 10 mg PO BID [facility] Last Admin: 01/11/18 12:38 Dose: Not Given Miscellaneous Medication (Biotene Moisturizing Mouth) 0 ml MM BID [facility] Last Admin: 01/11/18 10:17 Dose: 1 spr Nystatin (Mycostatin Powder) 0 gm TOP BID [facility] Last Admin: 01/11/18 10:04 Dose: 1 applic Polyethylene Glycol (Miralax) 17 gm PO DAILY [facility] Last Admin: 01/11/18 10:00 Dose: 17 gm Prednisone (Prednisone) 20 mg PO QAM-WM [facility] Last Admin: 01/11/18 10:00 Dose: 20 mg Quetiapine Fumarate (Seroquel) 25 mg PO HS [facility] Last Admin: 01/10/18 22:51 Dose: 25 mg Sodium Chloride ([place] Nasal [place] 0.65%) 0 ml EA NARE PRN PRN PRN Reason: Nasal Dryness Last Admin: 01/01/18 20:56 Dose: 1 spr Sodium Chloride (Flush - Normal Saline) 10 ml IVF Q12HR [facility] Last Admin: 01/11/18 12:14 Dose: 10 ml Sodium Chloride (Flush - Normal Saline) 10 ml IVF PRN PRN PRN Reason: Saline Flush
[2018-01-12] MEDS: Polyethylene Glycol 3350 17 GM Packet PO SCH (08:45)
[2018-01-12] MEDS: Enoxaparin Sodium 40 MG/0.4 ML SYRINGE SC SCH (08:45)
[2018-01-12] MEDS: Lisinopril 10 MG TAB PO SCH ×2 (08:45→21:03)
[2018-01-12] MEDS: predniSONE 20 MG TAB PO SCH (08:46)
[2018-01-12] MEDS: Atenolol 50 MG TAB PO SCH (08:46)
[2018-01-12] MEDS: Cefdinir 300 MG CAP PO SCH ×2 (08:46→21:02)
[2018-01-12] MEDS: Amlodipine 10 MG TAB PO SCH (08:46)
[2018-01-12] MEDS: Amiodarone 200 MG TAB PO SCH ×2 (08:46→20:59)
[2018-01-12] MEDS: Famotidine 20 MG TAB PO SCH ×2 (08:46→21:02)
[2018-01-12] MEDS: Artificial Tear Sol 15 ML BOT EA EYE SCH ×2 (08:47→21:01)
[2018-01-12] MEDS: Nystatin Powder 15 GM BOT TOP SCH ×2 (08:57→21:04)
[2018-01-12] MEDS: BIOTENE MOUTH SPRAY 44.3 ML MM SCH ×2 (09:00→21:21)
--- NOTE | 2018-01-12 13:42 | PDOC.PN ---
- Subjective Encounter Start Date: 01/12/18 Encounter Start Time: 13:40 Patient seen and examined today who was admitted for dementia w delirium, blurred vision, a fib and CHF. Delirium has resolved, patient is stable and ready for discharge. Awaiting placement. - Objective Resuscitation Status: Resuscitation Status FULL:Full Resuscitation MAR Reviewed: Yes Vital Signs & Weight: Vital Signs (12 hours) Temp Pulse Resp BP BP Pulse Ox 01/12/18 09:20 97.5 F L 73 18 141/65 H 95 01/12/18 08:46 74 01/12/18 08:45 125/69 01/12/18 08:00 97.5 F L 74 18 Weight Admit Weight 120 lb 14.4 oz Weight 120 lb 5.958 oz I&O: 01/11/18 01/12/18 01/13/18 06:59 06:59 06:59 Intake Total 1480 1620 Balance 1480 1620 Result Diagrams: 01/11/18 04:27 01/11/18 04:27 Phys Exam - Physical Examination Constitutional: NAD HEENT: moist MMs, sclera anicteric, oral pharynx no lesions Neck: supple, full ROM Respiratory: no wheezing, no rales, no rhonchi, clear to auscultation bilateral Cardiovascular: RRR, no significant murmur, no rub Gastrointestinal: soft, non-tender, no distention, positive bowel sounds Musculoskeletal: no edema Skin: no rash, normal turgor Dx/Plan (1) Physical deconditioning Code(s): R53.81 - OTHER MALAISE Status: Acute Comment: donor services manager consulted for placement. (2) Afib Code(s): I48.91 - UNSPECIFIED ATRIAL FIBRILLATION Status: Chronic Qualifiers: Atrial fibrillation type: paroxysmal Qualified Code(s): I48.0 - Paroxysmal atrial fibrillation Comment: Rate controlled. (3) CHF (NYHA class II, ACC/AHA stage C) Code(s): I50.9 - HEART FAILURE, UNSPECIFIED Status: Chronic Comment: Stable , not in acute exacerbation. Has diastolic dysfunction. (4) Cervical pain (neck) Code(s): M54.2 - CERVICALGIA Status: Chronic (5) Fracture of femoral neck, left, closed Code(s): S72.002A - FRACTURE OF UNSP PART OF NECK OF LEFT FEMUR, INIT Status: Acute Qualifiers: Encounter type: subsequent encounter Fracture healing: with routine healing Qualified Code(s): S72.002D - Fracture of unspecified part of neck of left femur, subsequent encounter for closed fracture with routine healing Comment: Stable s/p percut screw fixation 01/01/2018 (6) COPD (chronic obstructive pulmonary disease) Status: Chronic Qualifiers: COPD type: COPD with acute exacerbation Qualified Code(s): J44.1 - Chronic obstructive pulmonary disease with (acute) exacerbation Comment: Stable. Not in acute exacerbation. (7) Dementia Code(s): F03.90 - UNSPECIFIED DEMENTIA WITHOUT BEHAVIORAL DISTURBANCE Status: Chronic Qualifiers: Dementia type: unspecified type Dementia behavioral disturbance: with behavioral disturbance Qualified Code(s): F03.91 - Unspecified dementia with behavioral disturbance (8) HTN (hypertension) Code(s): I10 - ESSENTIAL (PRIMARY) HYPERTENSION Status: Chronic Qualifiers: Hypertension type: essential hypertension Qualified Code(s): I10 - Essential (primary) hypertension Comment: Well controlled. (9) Blurred vision, bilateral Code(s): H53.8 - OTHER VISUAL DISTURBANCES Status: Resolved Comment: CT head normal, Will follow up with opthalmology on outpatient basis. - Plan cont current plan of care, out of bed/ambulate * . Review of Systems - Medications/Allergies Allergies/Adverse Reactions: Allergies Allergy/AdvReac Type Severity Reaction Status Date / Time levofloxacin [From Levaquin] Allergy Verified 01/02/18 08:21 Penicillins Allergy Verified 01/02/18 08:21 Medications: Current Medications Acetaminophen (Tylenol) 650 mg PO Q4H PRN PRN Reason: Headache/Fever or Pain Last Admin: 01/07/18 07:53 Dose: 650 mg Albuterol/Ipratropium (Duoneb) 3 ml NEB Q2H PRN PRN Reason: SOB &/or Wheezing Albuterol/Ipratropium (Duoneb) 3 ml NEB [id number] [facility] Last Admin: 01/12/18 11:24 Dose: Not Given Amiodarone HCl (Cordarone) 400 mg PO BID [facility] Last Admin: 01/12/18 08:46 Dose: 400 mg Amlodipine Besylate (Norvasc) 10 mg PO DAILY [facility] Last Admin: 01/12/18 08:46 Dose: 10 mg Artificial Tears (Tears Renewed 15ml Bottle) 1 drop EA EYE BID [facility] Last Admin: 01/12/18 08:47 Dose: 1 drop Artificial Tears (Tears Renewed 15ml Bottle) 1 drop EA EYE PRN PRN PRN Reason: DRY EYES Aspirin (Aspirin Chewable) 81 mg PO DAILY [facility] Last Admin: 01/12/18 08:45 Dose: 81 mg Atenolol (Tenormin) 50 mg PO DAILY [facility] Last Admin: 01/12/18 08:46 Dose: 50 mg Cefdinir (Omnicef) 300 mg PO BID [facility] Last Admin: 01/12/18 08:46 Dose: 300 mg Enoxaparin Sodium (Lovenox) 40 mg SC 09 [facility] Last Admin: 01/12/18 08:45 Dose: 40 mg Famotidine (Pepcid) 20 mg PO BID [facility] Last Admin: 01/12/18 08:46 Dose: 20 mg Lisinopril (Zestril) 10 mg PO BID [facility] Last Admin: 01/12/18 08:45 Dose: 10 mg Miscellaneous Medication (Biotene Moisturizing Mouth) 0 ml MM BID [facility] Last Admin: 01/12/18 09:00 Dose: Not Given Nystatin (Mycostatin Powder) 0 gm TOP BID [facility] Last Admin: 01/12/18 08:57 Dose: 1 applic Polyethylene Glycol (Miralax) 17 gm PO DAILY [facility] Last Admin: 01/12/18 08:45 Dose: 17 gm Prednisone (Prednisone) 20 mg PO QAM-WM [facility] Last Admin: 01/12/18 08:46 Dose: 20 mg Quetiapine Fumarate (Seroquel) 25 mg PO HS [facility] Last Admin: 01/11/18 21:09 Dose: 25 mg Sodium Chloride ([place] Nasal [place] 0.65%) 0 ml EA NARE PRN PRN PRN Reason: Nasal Dryness Last Admin: 01/01/18 20:56 Dose: 1 spr Sodium Chloride (Flush - Normal Saline) 10 ml IVF Q12HR [facility] Last Admin: 01/12/18 09:01 Dose: Not Given Sodium Chloride (Flush - Normal Saline) 10 ml IVF PRN PRN PRN Reason: Saline Flush
[2018-01-13] MEDS: Polyethylene Glycol 3350 17 GM Packet PO SCH (09:29)
[2018-01-13] MEDS: Enoxaparin Sodium 40 MG/0.4 ML SYRINGE SC SCH (09:29)
[2018-01-13] MEDS: Lisinopril 10 MG TAB PO SCH ×2 (09:30→21:56)
[2018-01-13] MEDS: Amlodipine 10 MG TAB PO SCH (09:31)
[2018-01-13] MEDS: predniSONE 20 MG TAB PO SCH (09:31)
[2018-01-13] MEDS: Atenolol 50 MG TAB PO SCH (09:32)
[2018-01-13] MEDS: Amiodarone 200 MG TAB PO SCH ×2 (09:33→21:56)
[2018-01-13] MEDS: Famotidine 20 MG TAB PO SCH ×2 (09:33→21:56)
[2018-01-13] MEDS: Acetaminophen 325 MG TAB PO PRN ×2 (09:34→14:34)
[2018-01-13] MEDS: Nystatin Powder 15 GM BOT TOP SCH ×2 (09:35→22:07)
[2018-01-13] MEDS: Artificial Tear Sol 15 ML BOT EA EYE SCH ×2 (09:35→22:08)
[2018-01-13] MEDS: BIOTENE MOUTH SPRAY 44.3 ML MM SCH ×2 (09:35→22:08)
--- NOTE | 2018-01-13 12:35 | PDOC.PN ---
- Subjective Encounter Start Date: 01/13/18 Encounter Start Time: 07:20 Pt seen for followup re: physical deconditioning. Denies chest pain or shortness of breath. - Objective Resuscitation Status: Resuscitation Status FULL:Full Resuscitation MAR Reviewed: Yes Vital Signs & Weight: Vital Signs (12 hours) Temp Pulse Resp BP BP Pulse Ox 01/13/18 12:00 98.2 F 77 16 129/51 L 92 L 01/13/18 09:32 80 148/65 H 01/13/18 09:31 80 148/65 H 01/13/18 09:30 148/65 H 01/13/18 08:55 98.2 F 80 22 H 01/13/18 08:00 98.2 F 80 22 H 148/65 H 95 01/13/18 06:57 75 16 95 01/13/18 04:00 97.7 F 63 16 104/63 94 L Weight Admit Weight 120 lb 14.4 oz Weight 122 lb I&O: 01/12/18 01/13/18 01/14/18 06:59 06:59 06:59 Intake Total 1620 1720 Balance 1620 1720 Result Diagrams: 01/11/18 04:27 01/11/18 04:27 Additional Labs: Labs reviewed by me Phys Exam - Physical Examination Constitutional: NAD HEENT: moist MMs Neck: supple Respiratory: clear to auscultation bilateral Cardiovascular: RRR Gastrointestinal: soft Neurological: moves all 4 limbs Psychiatric: normal affect Dx/Plan (1) Physical deconditioning Code(s): R53.81 - OTHER MALAISE Status: Acute Comment: awaiting swing bed (2) Fracture of femoral neck, left, closed Code(s): S72.002A - FRACTURE OF UNSP PART OF NECK OF LEFT FEMUR, INIT Status: Acute Qualifiers: Encounter type: subsequent encounter Fracture healing: with routine healing Qualified Code(s): S72.002D - Fracture of unspecified part of neck of left femur, subsequent encounter for closed fracture with routine healing Comment: Stable s/p screw fixation 01/01/2018 (3) Afib Code(s): I48.91 - UNSPECIFIED ATRIAL FIBRILLATION Status: Chronic Qualifiers: Atrial fibrillation type: paroxysmal Qualified Code(s): I48.0 - Paroxysmal atrial fibrillation Comment: Rate controlled, continue amiodarone (4) CHF (NYHA class II, ACC/AHA stage C) Code(s): I50.9 - HEART FAILURE, UNSPECIFIED Status: Chronic Comment: Stable (5) COPD (chronic obstructive pulmonary disease) Status: Chronic Qualifiers: COPD type: COPD with acute exacerbation Qualified Code(s): J44.1 - Chronic obstructive pulmonary disease with (acute) exacerbation Comment: Stable. - Plan * . Review of Systems - Review of Systems Constitutional: weakness. negative: fever, chills, sweats, malaise Respiratory: negative: Cough, Shortness of Breath, SOB with Excertion, Pleuritic Pain, Wheezing - Medications/Allergies Allergies/Adverse Reactions: Allergies Allergy/AdvReac Type Severity Reaction Status Date / Time levofloxacin [From Levaquin] Allergy Verified 01/02/18 08:21 Penicillins Allergy Verified 01/02/18 08:21 Medications: Current Medications Acetaminophen (Tylenol) 650 mg PO Q4H PRN PRN Reason: Headache/Fever or Pain Last Admin: 01/13/18 09:34 Dose: 650 mg Albuterol/Ipratropium (Duoneb) 3 ml NEB Q2H PRN PRN Reason: SOB &/or Wheezing Albuterol/Ipratropium (Duoneb) 3 ml NEB [id number] [facility] Last Admin: 01/13/18 12:03 Dose: Not Given Amiodarone HCl (Cordarone) 400 mg PO BID [facility] Last Admin: 01/13/18 09:33 Dose: 400 mg Amlodipine Besylate (Norvasc) 10 mg PO DAILY [facility] Last Admin: 01/13/18 09:31 Dose: 10 mg Artificial Tears (Tears Renewed 15ml Bottle) 1 drop EA EYE BID [facility] Last Admin: 01/13/18 09:35 Dose: 1 drop Artificial Tears (Tears Renewed 15ml Bottle) 1 drop EA EYE PRN PRN PRN Reason: DRY EYES Aspirin (Aspirin Chewable) 81 mg PO DAILY [facility] Last Admin: 01/13/18 09:31 Dose: 81 mg Atenolol (Tenormin) 50 mg PO DAILY [facility] Last Admin: 01/13/18 09:32 Dose: 50 mg Enoxaparin Sodium (Lovenox) 40 mg SC 0900 [facility] Last Admin: 01/13/18 09:29 Dose: 40 mg Famotidine (Pepcid) 20 mg PO BID [facility] Last Admin: 01/13/18 09:33 Dose: 20 mg Lisinopril (Zestril) 10 mg PO BID [facility] Last Admin: 01/13/18 09:30 Dose: 10 mg Miscellaneous Medication (Biotene Moisturizing Mouth) 0 ml MM BID [facility] Last Admin: 01/13/18 09:35 Dose: 1 spr Nystatin (Mycostatin Powder) 0 gm TOP BID [facility] Last Admin: 01/13/18 09:35 Dose: 1 applic Polyethylene Glycol (Miralax) 17 gm PO DAILY [facility] Last Admin: 01/13/18 09:29 Dose: 17 gm Prednisone (Prednisone) 20 mg PO QAM-WM [facility] Last Admin: 01/13/18 09:31 Dose: 20 mg Quetiapine Fumarate (Seroquel) 25 mg PO HS [facility] Last Admin: 01/12/18 21:04 Dose: 25 mg Sodium Chloride ([place] Nasal [place] 0.65%) 0 ml EA NARE PRN PRN PRN Reason: Nasal Dryness Last Admin: 01/01/18 20:56 Dose: 1 spr Sodium Chloride (Flush - Normal Saline) 10 ml IVF Q12HR [facility] Last Admin: 01/13/18 09:36 Dose: Not Given Sodium Chloride (Flush - Normal Saline) 10 ml IVF PRN PRN PRN Reason: Saline Flush
[2018-01-14 05:40] LABS: Hemoglobin 10.6 g/dL (12.0-16.0); Mean Corpuscular HGB CONC 34.3 g/dL (32.0-36.0); Mean Corpuscular Hemoglobin 34.1 pg (27.0-31.0); Mean Corpuscular Volume 99.4 fl (81.0-99.0); Mean Platelet Volume 6.8 fL (7.4-10.4); Platelet Count 414 thou/uL (130-400); RBC Distribution Width 11.8 % (11.5-14.5); Red Blood Cell (RBC) Count 3.13 mill/uL (4.20-5.40); White Blood Cell (WBC) Count 8.9 thou/uL (4.8-10.8)
[2018-01-14 05:53] LABS: Anion Gap 12 mmol/L (10-20); BUN (Urea Nitrogen) 22 mg/dL (9.8-20.1); Calc. Creatinine Clearance 40 mL/min (70-130); Calcium 8.9 mg/dL (7.8-10.44); Carbon Dioxide 26 mmol/L (23-31); Chloride 95 mmol/L (98-107); Estimated GFR-MDRD 56; Glucose 89 mg/dL (83-110); Sodium 129 mmol/L (136-145)
[2018-01-14] MEDS: Atenolol 50 MG TAB PO SCH (09:01)
[2018-01-14] MEDS: Enoxaparin Sodium 40 MG/0.4 ML SYRINGE SC SCH (09:01)
[2018-01-14] MEDS: Polyethylene Glycol 3350 17 GM Packet PO SCH (09:01)
[2018-01-14] MEDS: predniSONE 20 MG TAB PO SCH (09:01)
[2018-01-14] MEDS: Lisinopril 10 MG TAB PO SCH ×2 (09:02→19:53)
[2018-01-14] MEDS: Amiodarone 200 MG TAB PO SCH ×2 (09:02→19:52)
[2018-01-14] MEDS: Amlodipine 10 MG TAB PO SCH (09:02)
[2018-01-14] MEDS: Artificial Tear Sol 15 ML BOT EA EYE SCH ×2 (09:07→19:53)
[2018-01-14] MEDS: Nystatin Powder 15 GM BOT TOP SCH ×2 (09:07→19:53)
[2018-01-14] MEDS: Famotidine 20 MG TAB PO SCH ×2 (09:07→19:53)
[2018-01-14] MEDS: BIOTENE MOUTH SPRAY 44.3 ML MM SCH ×2 (09:08→19:54)
[2018-01-14 11:58] VITALS: BMI 22.3
--- NOTE | 2018-01-14 17:24 | PDOC.PN ---
- Subjective Encounter Start Date: 01/14/18 Encounter Start Time: 10:20 Pt seen for followup re: physical deconditioning. Pt was upset at staff, rambling. Denies chest pain or shortness of breath. - Objective Resuscitation Status: Resuscitation Status FULL:Full Resuscitation MAR Reviewed: Yes Vital Signs & Weight: Vital Signs (12 hours) Temp Pulse Resp BP BP Pulse Ox 01/14/18 15:20 97.8 F 72 18 120/50 L 94 L 01/14/18 11:20 97.6 F 72 22 H 139/56 L 95 01/14/18 09:53 97.7 F 74 16 110/62 97 01/14/18 09:02 81 126/78 01/14/18 09:01 81 126/78 01/14/18 08:00 97.7 F 74 16 97 Weight Admit Weight 120 lb 14.4 oz Weight 122 lb 2.177 oz I&O: 01/13/18 01/14/18 01/15/18 06:59 06:59 06:59 Intake Total 1720 1250 Output Total 2 Balance 1720 1248 Result Diagrams: 01/14/18 05:07 01/14/18 05:07 Additional Labs: Labs reviewed by me Phys Exam - Physical Examination Constitutional: NAD HEENT: moist MMs Neck: supple Respiratory: clear to auscultation bilateral Cardiovascular: RRR Gastrointestinal: soft Neurological: moves all 4 limbs Psychiatric: normal affect Deviation from normal: Oriented to person only Dx/Plan (1) Physical deconditioning Code(s): R53.81 - OTHER MALAISE Status: Acute Comment: Pt is awaiting [facility], case management following (2) Fracture of femoral neck, left, closed Code(s): S72.002A - FRACTURE OF UNSP PART OF NECK OF LEFT FEMUR, INIT Status: Acute Qualifiers: Encounter type: subsequent encounter Fracture healing: with routine healing Qualified Code(s): S72.002D - Fracture of unspecified part of neck of left femur, subsequent encounter for closed fracture with routine healing Comment: Stable after screw fixation 01/01/2018 (3) Afib Code(s): I48.91 - UNSPECIFIED ATRIAL FIBRILLATION Status: Chronic Qualifiers: Atrial fibrillation type: paroxysmal Qualified Code(s): I48.0 - Paroxysmal atrial fibrillation Comment: Rate controlled, continue amiodarone (4) CHF (NYHA class II, ACC/AHA stage C) Code(s): I50.9 - HEART FAILURE, UNSPECIFIED Status: Chronic Comment: Stable (5) COPD (chronic obstructive pulmonary disease) Status: Chronic Qualifiers: COPD type: COPD with acute exacerbation Qualified Code(s): J44.1 - Chronic obstructive pulmonary disease with (acute) exacerbation Comment: Stable. - Plan * . Review of Systems - Review of Systems Constitutional: negative: fever, chills, sweats, weakness, malaise Cardiovascular: negative: chest pain, palpitations, orthopnea, paroxysmal nocturnal dyspnea, edema, light headedness - Medications/Allergies Allergies/Adverse Reactions: Allergies Allergy/AdvReac Type Severity Reaction Status Date / Time levofloxacin [From Levaquin] Allergy Verified 01/02/18 08:21 Penicillins Allergy Verified 01/02/18 08:21 Medications: Current Medications Acetaminophen (Tylenol) 650 mg PO Q4H PRN PRN Reason: Headache/Fever or Pain Last Admin: 01/13/18 14:34 Dose: 650 mg Albuterol/Ipratropium (Duoneb) 3 ml NEB Q4H PRN PRN Reason: SOB &/or Wheezing Amiodarone HCl (Cordarone) 400 mg PO BID [facility] Last Admin: 01/14/18 09:02 Dose: 400 mg Amlodipine Besylate (Norvasc) 10 mg PO DAILY [facility] Last Admin: 01/14/18 09:02 Dose: 10 mg Artificial Tears (Tears Renewed 15ml Bottle) 1 drop EA EYE BID [facility] Last Admin: 01/14/18 09:07 Dose: 1 drop Artificial Tears (Tears Renewed 15ml Bottle) 1 drop EA EYE PRN PRN PRN Reason: DRY EYES Aspirin (Aspirin Chewable) 81 mg PO DAILY [facility] Last Admin: 01/14/18 09:02 Dose: 81 mg Atenolol (Tenormin) 50 mg PO DAILY [facility] Last Admin: 01/14/18 09:01 Dose: 50 mg Enoxaparin Sodium (Lovenox) 40 mg SC 0900 [facility] Last Admin: 01/14/18 09:01 Dose: 40 mg Famotidine (Pepcid) 20 mg PO BID [facility] Last Admin: 01/14/18 09:07 Dose: 20 mg Lisinopril (Zestril) 10 mg PO BID [facility] Last Admin: 01/14/18 09:02 Dose: 10 mg Miscellaneous Medication (Biotene Moisturizing Mouth) 0 ml MM BID [facility] Last Admin: 01/14/18 09:08 Dose: 1 spr Nystatin (Mycostatin Powder) 0 gm TOP BID [facility] Last Admin: 01/14/18 09:07 Dose: 1 applic Polyethylene Glycol (Miralax) 17 gm PO DAILY [facility] Last Admin: 01/14/18 09:01 Dose: 17 gm Prednisone (Prednisone) 20 mg PO QAM-WM [facility] Last Admin: 01/14/18 09:01 Dose: 20 mg Quetiapine Fumarate (Seroquel) 25 mg PO HS [facility] Last Admin: 01/13/18 21:56 Dose: 25 mg Sodium Chloride ([place] Nasal [place] 0.65%) 0 ml EA NARE PRN PRN PRN Reason: Nasal Dryness Last Admin: 01/01/18 20:56 Dose: 1 spr Sodium Chloride (Flush - Normal Saline) 10 ml IVF Q12HR [facility] Last Admin: 01/14/18 09:08 Dose: Not Given Sodium Chloride (Flush - Normal Saline) 10 ml IVF PRN PRN PRN Reason: Saline Flush
[2018-01-14] MEDS: Acetaminophen 325 MG TAB PO PRN (19:52)
[2018-01-15] MEDS ORDERED: Boudreaux's Butt Paste 16% Oin 30 GM TUBE TOP PRN (08:45)
[2018-01-15] MEDS: Enoxaparin Sodium 40 MG/0.4 ML SYRINGE SC SCH (08:56)
[2018-01-15] MEDS: Famotidine 20 MG TAB PO SCH (08:56)
[2018-01-15] MEDS: predniSONE 20 MG TAB PO SCH (08:56)
[2018-01-15] MEDS: Amiodarone 200 MG TAB PO SCH (08:58)
[2018-01-15] MEDS: Atenolol 50 MG TAB PO SCH (08:58)
[2018-01-15] MEDS: Lisinopril 10 MG TAB PO SCH (08:58)
[2018-01-15] MEDS: Amlodipine 10 MG TAB PO SCH (08:59)
[2018-01-15] MEDS: Polyethylene Glycol 3350 17 GM Packet PO SCH (08:59)
[2018-01-15] MEDS: Artificial Tear Sol 15 ML BOT EA EYE SCH (08:59)
[2018-01-15] MEDS ORDERED: Nystatin Cream 30 GM TUBE TOP SCH (09:00)
[2018-01-15] MEDS: BIOTENE MOUTH SPRAY 44.3 ML MM SCH (09:00)
[2018-01-15 11:35] VITALS: BP 127/52; TEMP 97.9
--- NOTE | 2018-01-15 11:58 | DIS ---
DATE OF ADMISSION: 12/31/2017 DATE OF DISCHARGE: 01/15/2018. PRIMARY CARE PHYSICIAN: Octavio Sarmiento M.D. DISCHARGE DIAGNOSES: 1. Physical deconditioning. 2. Delirium. 3. Chronic obstructive pulmonary disease exacerbation. 4. Left femoral neck fracture. CONSULTATIONS DURING THIS HOSPITALIZATION: 1. Cardiology, Dr. Oviedo. 2. Orthopedics, Dr. Rodriges. 3. Pulmonology, Dr. Rm Craig. CONDITION OF PATIENT ON THE DAY OF DISCHARGE: Stable. I assessed Ms. Strange on the day of discharge. She is oriented to person only, not to place or time. She denies any chest pain or shortness of breath. Vital signs are stable. S1 and S2 are heard, regular. Lungs are clear to auscultation bilaterally. DISCHARGE MEDICATIONS: Amiodarone 400 mg 2 times a day for 3 more doses, then followed by 200 mg daily; Norvasc 10 mg daily; alprazolam 0.25 mg 3 times a day as needed; aspirin 81 mg daily; atenolol 50 mg daily; Azelastine nasal spray 3 times a day as needed; Chet's Butt Paste as needed; DuoNebs as needed; lisinopril 10 mg 2 times a day; Medrol Dosepak; Seroquel 25 mg at bedtime; Edgar nasal spray as needed. HOSPITAL COURSE: Ms. Strange is a pleasant 82-year-old lady who presented to the emergency room at [facility] on the night of 12/30/2017, for shortness of breath secondary to chronic obstructive pulmonary disease exacerbation as well as suspected congestive heart failure exacerbation. While in the emergency room, she sustained a fall and had a left femoral neck fracture. She was seen by Orthopedic Surgery Service. She had a 2D echocardiogram on 12/31/2017, which showed left ventricular ejection fraction of 60%-65%, moderately dilated right ventricle, mild to moderate mitral regurgitation, moderate to severe tricuspid regurgitation and elevated right ventricular systolic pressure estimated at 60 mmHg. She was also seen by Cardiology Service. She received diuretics for possible volume overload. On , she developed atrial fibrillation. She was started on amiodarone drip. That same day, she underwent percutaneous screw fixation for left femoral neck fracture. She was subsequently changed to oral amiodarone. Her hospitalization was complicated by delirium as well as physical deconditioning. Case management was involved closely and discharge planning. She is being discharged to [facility] for swing bed for further management. Many thanks for allowing me to participate in your patient's care. Please feel free to contact me with any questions or concerns. Please note that patient is in normal sinus rhythm at the time of discharge. She was not started on anticoagulation because of risk of falls. DISCHARGE DESTINATION: [facility] swing bed. TOTAL AMOUNT OF TIME SPENT COORDINATING THIS DISCHARGE: 38 minutes. DANTE
== END 2018-01-15 11:45 | disposition critical access hospital (66) | DRG 480 ==
LOC: ERS 20:31 → 2NO 22:18 → SJJU 01-06 12:13
PROVIDERS: ADMIT Internal Medicine; ATTEND Internal Medicine
PROC: 0QS734Z Reposition Left Upper Femur with Internal Fixation Device, Percutaneous Approach (ICD-10-PCS; principal; 2018-01-01)
DX: S72.002A Fracture of unspecified part of neck of left femur, initial encounter for closed fracture (principal); I50.31 Acute diastolic (congestive) heart failure; J96.01 Acute respiratory failure with hypoxia; G93.40 Encephalopathy, unspecified; J44.1 Chronic obstructive pulmonary disease with (acute) exacerbation; R64 Cachexia; I24.8 Other forms of acute ischemic heart disease; J96.12 Chronic respiratory failure with hypercapnia; I11.0 Hypertensive heart disease with heart failure; F03.90 Unspecified dementia, unspecified severity, without behavioral disturbance, psychotic disturbance, mood disturbance, and anxiety; I48.0 Paroxysmal atrial fibrillation; F17.210 Nicotine dependence, cigarettes, uncomplicated; I73.9 Peripheral vascular disease, unspecified; M19.90 Unspecified osteoarthritis, unspecified site; I27.23 Pulmonary hypertension due to lung diseases and hypoxia; M54.2 Cervicalgia; H53.8 Other visual disturbances; Z98.890 Other specified postprocedural states; Z79.01 Long term (current) use of anticoagulants; W06.XXXA Fall from bed, initial encounter; Y92.238 Other place in hospital as the place of occurrence of the external cause
CPT/HCPCS: 36415; 70450; 71045; 72125; 72170; 74018; 76001; 80048; 80053; 81001; 82553; 82805; 83735; 83880; 84443; 84484; 85007; 85025; 85027; 85610; 85730; 86850; 86900; 86901; 87040; 87070; 87205; 93005; 93010; 93306; 93798; 94640; 96361; 96365; 96375; A4216; C1713; C1769; G8978-GP-CK; G8979-GP-CI; G8987-GO-CL; G8988-GO-CJ; J0282; J0456; J0670; J0696; J1650; J1940; J2060; J2250; J2270; J2920; J3010; J3370; J3475; J3480; J7050; J7070; J7506; J7620

== ENCOUNTER 2018-02-12 11:04 | Inpatient (IN) | payer MEDICARE ==
[2018-02-12 11:53] LABS: Bilirubin Small (Negative); Blood, Urine Small (Negative); Glucose, Urine (Dipstick) Negative (Negative); Leukocyte Negative (Negative); Nitrite Negative (Negative); Protein, Urine (Dipstick) Trace mg/dL (Neg-Trace); Specific Gravity, Urine 1.015 (1.005-1.030); Urobilinogen 0.2 mg/dL (0.2-1.0); pH, Urine 5.5 (5.0-9.0)
[2018-02-12 11:56] LABS: Clarity CLEAR (Clear)
[2018-02-12 12:06] LABS: Bacteria/HPF 2+ HPF (None Seen); Crystals/HPF 1+ AMORPH URATES HPF (Negative); Hyaline Casts/LPF NONE SEEN LPF (0-3 Hyaline); RBC/HPF 0-3 HPF (0-3); Squamous Epithelial 0-3 HPF (0-3); WBC/HPF None Seen HPF (0-3)
[2018-02-12 12:31] LABS: White Blood Cell (WBC) Count 11.1 thou/uL (4.8-10.8)
[2018-02-12 12:39] LABS: Hemoglobin 11.7 g/dL (12.0-16.0); Mean Corpuscular HGB CONC 32.6 g/dL (32.0-36.0); Mean Corpuscular Hemoglobin 33.1 pg (27.0-31.0); Mean Platelet Volume 8.1 fL (7.4-10.4); Platelet Count 307 thou/uL (130-400); RBC Distribution Width 12.5 % (11.5-14.5); Red Blood Cell (RBC) Count 3.54 mill/uL (4.20-5.40)
[2018-02-12 12:42] LABS: ALT (SGPT) 21 U/L (8-55); AST (SGOT) 20 U/L (5-34); Albumin 3.3 g/dL (3.4-4.8); Alkaline Phosphatase 98 U/L (40-150); Anion Gap 21 mmol/L (10-20); BUN (Urea Nitrogen) 97 mg/dL (9.8-20.1); Bilirubin, Total 0.5 mg/dL (0.2-1.2); Calc. Creatinine Clearance 0 mL/min (70-130); Calcium 9.8 mg/dL (7.8-10.44); Carbon Dioxide 24 mmol/L (23-31); Chloride 101 mmol/L (98-107); Estimated GFR-MDRD 16; Globulin 3.6 g/dL (2.4-3.5); Glucose 149 mg/dL (83-110); Protein, Total 6.9 g/dL (6.0-8.3); Sodium 141 mmol/L (136-145)
[2018-02-12 12:46] LABS: Band 36 % (5-11); Eosinophils 1 % (0-10); Lymphocytes 3 % (21-51); MDiff Complete? YES; Monocytes 11 % (0-10); Neutrophil 49 % (42-75); PLT Morphology Comment Appears Adequate; Polychromasia SLIGHT = 2-3 cells (100X) (0-2/hpf); Reflex for Review?? NO; Toxic Granulation SLIGHT; Vacuoles MODERATE
[2018-02-12 12:49] LABS: CKMB 1.6 ng/mL (0-6.6)
[2018-02-12] MEDS ORDERED: Acetaminophen 650 MG Suppository ONE (13:01)
[2018-02-12] MEDS ORDERED: Cefepime 2 GM in Sodium Chloride 0.9% 100 ML IVPB SCH (13:30)
--- NOTE | 2018-02-12 13:37 | RAD ---
CHEST 1 VIEW: HISTORY: Fever. COMPARISON: 12/30/17. FINDINGS: The patient is rotated leftward. Atelectasis left lung base with obscuration left hemidiaphragm. Th e right lung is hyperinflated. Atherosclerosis within the aorta. No evidence of pneumothorax. IMPRESSION: 1. Left lower lobe consolidation/atelectasis. Cause is not evident. Please consider upright PA and lateral views of the chest for better correlation. 2. Atherosclerosis. POS: [facility]
[2018-02-12 15:40] LABS: CO2 Tension 41.7 mmHg (35.0-45.0); pH, Arterial 7.38 (7.35-7.45)
[2018-02-12 15:41] LABS: Actual Bicarbonate (HCO3a) 23.9 mEq/L (22-28); Base Excess (BEa) -1.3 mEq/L (-2.0 to +3.0); Hematocrit-ABG 30.3 % (36.0-47.0); Hemoglobin (Hb) 10.1 g/dL (12.0-16.0); O2 Tension (PaO2) 55.9 mmHg (> 60.0)
[2018-02-12 15:43] LABS: Analyzer IN Cardio ER; Calcium, Ionized 1.2 mmol/L (1.12-1.30); Puncture Site RRA
[2018-02-12 15:44] LABS: ALV-art Gradient 175.575 (0-20)
[2018-02-12 16:33] LABS: Lactic Acid 2.5 mmol/L (0.5-2.2)
--- NOTE | 2018-02-12 16:51 | RAD ---
CHEST ONE VIEW: 02/12/18 COMPARISON: 02/12/18 at 12:49 p.m. HISTORY: Failure to thrive. Difficulty swallowing. FINDINGS: Interval placement of endotracheal and nasogastric tube. Persistent opacification of the left lung ba se. Stable hyperinflation. Stable surgical suture chain projecting in the right hilum. No pneumothora x. IMPRESSION: Interval placement of endotracheal and nasogastric tube. Otherwise, no significant change. POS: [facility]
[2018-02-12] MEDS ORDERED: Acetaminophen 325 MG TAB PO PRN (17:07)
[2018-02-12] MEDS ORDERED: Ondansetron ODT 4 MG TAB SL PRN (17:07)
[2018-02-12] MEDS ORDERED: Ondansetron HCl/PF 4 MG/2 ML Vial IVP PRN ×2 (17:07→18:51)
[2018-02-12] MEDS ORDERED: Ventilator Sedation Protocol 1 EACH FS ONE (17:55)
[2018-02-12] MEDS ORDERED: Fentanyl BOLUS 250 ML IVPB PRN (17:58)
[2018-02-12] MEDS ORDERED: DISCONTINUE PREVIOUS NARCOTIC PAIN MEDICATIONS AND BENZODIAZEPINES FS SCH (17:58)
[2018-02-12] MEDS ORDERED: Propofol BOLUS 1,000 MG/100 ML VIAL IV PRN (17:58)
[2018-02-12] MEDS ORDERED: fentaNYL Citrate/PF 2,000 MCG in Sodium Chloride 0.9% 60 ML IV SCH (17:58)
[2018-02-12 18:10] LABS: pH, Arterial 7.25 (7.35-7.45)
[2018-02-12 18:11] LABS: Base Excess (BEa) -2.9 mEq/L (-2.0 to +3.0); CO2 Tension 58.5 mmHg (35.0-45.0); O2 Tension (PaO2) 114.5 mmHg (> 60.0)
[2018-02-12 18:13] LABS: Hemoglobin (Hb) 11.8 g/dL (12.0-16.0)
[2018-02-12 18:14] LABS: Calcium, Ionized 1.2 mmol/L (1.12-1.30); Puncture Site RBA
[2018-02-12 18:15] LABS: ALV-art Gradient 525.375 (0-20)
[2018-02-12] MEDS ORDERED: Acetaminophen 650 MG Suppository PR PRN (18:51)
[2018-02-12] MEDS ORDERED: Acetaminophen 500 MG TAB PO PRN (18:51)
[2018-02-12] MEDS ORDERED: CCU Electrolyte Replacement 1 EACH FS ONE (18:51)
[2018-02-12] MEDS ORDERED: Sodium Chloride 0.9% 1,000 ML IV SCH (18:51)
[2018-02-12] MEDS ORDERED: Ondansetron ODT 4 MG TAB PO PRN (18:51)
[2018-02-12] MEDS ORDERED: Boudreaux's Butt Paste 16% Oin 30 GM TUBE TOP PRN (18:51)
[2018-02-12] MEDS ORDERED: Potassium Phosphate 12 MMOL in Sodium Chloride 0.9% 250 ML 250 ML IV PRN (19:00)
[2018-02-12] MEDS ORDERED: Magnesium 2 GM/NS 0.9% 100 ML 2 GM in Premix Bag 1 BAG IVPB PRN (19:00)
[2018-02-12] MEDS ORDERED: CCU ELECTROLYTE REPLACEMENT PROTOCOL FS PRN (19:00)
[2018-02-12] MEDS ORDERED: Potassium Phosphate 15 MMOL in Sodium Chloride 0.9% 250 ML 250 ML IV PRN (19:00)
[2018-02-12] MEDS ORDERED: Magnesium Oxide 400 MG TAB PO PRN ×2 (19:00)
[2018-02-12] MEDS ORDERED: Potassium Chloride 20 MEQ TAB PO PRN (19:00)
[2018-02-12] MEDS ORDERED: Potassium Phosphate 9 MMOL in Sodium Chloride 0.9% 100 ML IVPB PRN (19:00)
[2018-02-12] MEDS ORDERED: Potassium Chloride 40 MEQ in Sodium Chloride 0.9% 250 ML 250 ML IVPB PRN (19:00)
[2018-02-12] MEDS ORDERED: Potassium Chloride 40 MEQ in Premix Bag 1 BAG IVPB PRN (19:00)
--- NOTE | 2018-02-12 20:18 | RAD ---
SINGLE VIEW CHEST: 02/12/18 COMPARISON: 02/12/18 HISTORY: Sepsis. FINDINGS: Single view of the chest shows a normal sized cardiomediastinal silhouette. Postsurgical changes seen in the right thorax with an anastomotic staple line overlying the right lung. An endotracheal tube a nd NG tube are unchanged in position. There are multifocal air space opacities projecting over the le ft lower lobe which could represent left sided infiltrates. IMPRESSION: Left lower lobe infiltrates. POS: [facility]
[2018-02-12] MEDS: Sodium Chloride 0.9% 1,000 ML IV SCH (20:37)
[2018-02-12] MEDS ORDERED: Vancomycin HCl 1 GM in Sodium Chloride 0.9% 250 ML 250 ML IVPB SCH (21:00)
[2018-02-12] MEDS: Famotidine/PF 20 mg/2ml Vial SLOW IVP SCH (21:23)
[2018-02-12 23:21] LABS: Lactic Acid 2.9 mmol/L (0.5-2.2)
--- NOTE | 2018-02-13 01:21 | CON ---
DATE OF CONSULTATION: 02/12/2018 Pulmonary/Critical Care consult, encompassing 40 minutes of critical care time. Ms. Strange is an 82-year-old female, who presented to the emergency room, referred from [facility] for failure to thrive. She was supposedly living independently prior to 12/31/2017-01/15/2018 hospital admission. Then her discharge diagnosis was delirium, physical deconditioning, COPD exacerbation, and a femoral neck fracture. At discharge, she was only oriented to person. She was sent home on amiodarone, Norvasc, Xanax, aspirin, atenolol, Astelin, nebulizer treatments, lisinopril, and a Medrol Dosepak as well as Seroquel at bedtime. She apparently had fallen during the emergency room and fractured her left femur. Her echocardiogram showed [id number] mitral regurgitation and a hyperdynamic left ventricle, some evidence of pulmonary hypertension. She had atrial fibrillation during that admission. She was converted to sinus rhythm on an amiodarone drip. Prior to that admission, she reportedly was living independently. Prior to that admission she had hypertension and degenerative arthritis, history of right carotid endarterectomy, hysterectomy, and appendectomy. She was smoking a pack a day up until that admission and drinking wine every day. ALLERGIES: She reports allergies to LEVAQUIN and PENICILLIN. FAMILY HISTORY: Negative for lung disease in early age according to old records. REVIEW OF SYSTEMS: Not obtainable. She is intubated. Apparently, she presented today, was hydrated and then developed respiratory distress, and was intubated. PHYSICAL EXAMINATION: VITAL SIGNS: Blood pressure 101/42, heart rate is 98, respiratory rate is 25. HEENT: Pupils react. Sclerae is anicteric. Extraocular movements appear to be full. She nods yes and no to questions. She moves all of her extremities. She is very cachectic appearing. LUNGS: Remarkable for rhonchi bilaterally. HEART: Regular rhythm, grade 2/6 systolic murmur. ABDOMEN: Soft and nontender. EXTREMITIES: Without clubbing, cyanosis, or edema. NEUROLOGIC: Grossly nonfocal. IMPRESSION: Failure to thrive, ?secondary to advancing dementia. Given that she is discharged and was not oriented, I would wonder if her diagnosis is not one of dementia, and she is unable to compensate in a care environment. Nursing staff in the emergency department told me they tried to call the [facility] and could not get an answer on the phone as well as the next of kin number that they had. She was apparently seen by palliative care last admission. We will repeat a radiograph in the morning. She has been started on broad antimicrobials. She certainly could have a pneumonia hiding behind her cardiac silhouette on the left. Other than that, there is not much difference in her radiograph compared to last admission. I will be happy to follow with the other physicians caring for her. Critical care time 40 minutes. DANTE
--- NOTE | 2018-02-13 01:26 | HP ---
DATE OF ADMISSION: 02/12/2018 PRIMARY CARE PHYSICIAN: Dr. Mike Tolentino. CHIEF COMPLAINT: General weakness and fever. HISTORY OF PRESENT ILLNESS: This is an 82-year-old female who is a current resident of [facility] in [place], presenting with fever up to 101 degrees Fahrenheit and decreased activity. The patient apparently a resident of [facility] after sustaining a left femoral neck fracture u ndergoing a percutaneous screw fixation in 12/2017. The patient apparently was transferred to [facility] for convalescence, however, was unable to return home. The history is obtained after discus sions with patient's nephew, Toribio Carrington as patient is currently on mechanical ventilation, unable t o provide any history. The nephew reports patient has never quite been the same recovered completely after the left hip fracture. The patient's memory has noted to be waning as well as her appetite. The patient apparently with minimal activity at [facility] and continues to decline physically ac cording to family members and the nephew. In the emergency room, the patient underwent general evalu ation including a chest imaging, showing opacification of the left lung base with hyperinflation and chronic lung changes consistent with COPD. The patient received bronchodilator therapy including Duo Neb as well as vancomycin, cefepime, and intravenous normal saline 1.5 liters. The patient was noted with hypotension and concern for sepsis was noted. The patient subsequently continued to decline in the emergency department, requiring mechanical ventilation and intubation. PAST MEDICAL HISTORY: 1. Hypertension. 2. Osteoarthritis. 3. Left-hip fracture, status post percutaneous screw placement in 12/2017. 4. History of atrial fibrillation. 5. Chronic obstructive pulmonary disease. 6. Remote tobacco use. 7. Anxiety. 8. Depression. 9. Physical deconditioning. 10. Right carotid artery disease. PAST SURGICAL HISTORY: 1. Status post right carotid endarterectomy. 2. Status post appendectomy. 3. Status post left percutaneous screw fixation of the left femur. CURRENT MEDICATIONS: 1. Alprazolam 0.25 mg p.o. t.i.d. 2. Amiodarone 200 mg p.o. daily. 3. Amlodipine 10 mg p.o. daily. 4. Enteric coated aspirin 81 mg 1 tab p.o. daily. 5. Tenormin 50 mg p.o. daily. 6. Azelastine 137 mcg 1 spray in each naris t.i.d. p.r.n. 7. DuoNeb 3 mL nebulized q.4 hours p.r.n. 8. Zestril 10 mg p.o. b.i.d. 9. Seroquel 25 mg p.o. at bedtime. ALLERGIES: LEVAQUIN and PENICILLIN. FAMILY HISTORY: One sister . No inheritable diseases per patient's nephew report. SOCIAL HISTORY: The patient resides at [facility]. No alcohol, tobacco, or illicit drug use cur rently. Formerly used tobacco products. . Medical power of securities attorney is Toribio Carrington. REVIEW OF SYSTEMS: Unobtainable as patient on current mechanical ventilation. PHYSICAL EXAMINATION: VITAL SIGNS: Currently, blood pressure 76/48, pulse 58, respiratory rate 20, temperature 98.6 degree s Fahrenheit, O2 saturation 98% on 70% FiO2. GENERAL APPEARANCE: This is an 82-year-old female, pale, ill-appearing on mechanical venti lation. HEENT: Pupils are minimally reactive to light and accommodation. Extraocular muscles intact. Does not track to voice. Nares patent. OP with ET tube in place. Oral mucosa dry appearing. NECK: Supple. No cervical adenopathy, no thyromegaly, no carotid bruits, no JVD appreciated. CHEST: Diminished breath sounds in the bases bilaterally. CARDIOVASCULAR: S1, S2 with distant heart sounds. No murmur, rub, or gallop appreciated. ABDOMEN: Flat, soft, nontender, nondistended. Bowel sounds are positive in all four quadrants. The re is no hepatosplenomegaly, no abdominal bruits, no rebound or guarding appreciated. EXTREMITIES: Poor skin turgor. No clubbing, cyanosis, or asymmetric edema appreciated. Pulses palp able distally at the dorsalis pedis, posterior tibial, and popliteal arteries bilaterally. Capillary refill less than 2 seconds. NEUROLOGIC: Lethargic, responds minimally to name, does not follow commands. GENITOURINARY: Dalal catheter in place with vicki urine. PERTINENT LABORATORY AND X-RAY FINDINGS: Sodium 141, potassium 5.0, chloride 101, CO2 of 24, BUN 97, creatinine 2.83, estimated GFR 16, glucose 149. Lactic acid level ranged between 2.3-2.5, calcium 9 .8. LFTs within normal limits. Troponin I 0.010. Albumin 3.3. CBC showed a white blood cell count of 11.1, hemoglobin 12, hematocrit 36, MCV 102, platelet count 307,000 with 49% neutrophils, 36% ban ds. ABG dated 02/12/2018 showed pH 7.25, pCO2 of 58.5, pO2 114.5, bicarbonate 25, O2 saturation 97% on 100% FiO2 by SIMV. Portable chest x-ray dated 02/12/2018, showed interval placement of endotrache al and nasogastric tube. Opacification of the left lung base noted. Hyperinflation consistent with COPD. EKG dated 02/12/2018 by my interpretation shows sinus mechanism with first-degree AV block. H eart rates in the 90s. Attenuated R waves noted in the precordial leads. Left axis deviation. ASSESSMENT AND PLAN: 1. Septic shock. The patient will be admitted to the critical care unit. We will continue general sepsis protocol. We will continue IV fluid with 2-liter bolus now. We will initiate Levophed to alyson ntain systolics over 100. Continue cefepime 2 grams IV q.12 hours with additional vancomycin 1 gram IV q.12 hours. We will add additional Solu-Medrol 40 mg IV q.6 hours. Suspected source is pulmonic with pneumonia. Blood and urine cultures pending. We will continue serial lactic acid assessment pe r protocol. Consult Pulmonology Service for further comanagement. 2. Acute kidney injury. Suspect secondary to severe dehydration. We will continue aggressive IV fl uid hydration and avoid nephrotoxic agents and contrast media. Serial creatinine assessment. 3. Acute hypoxic respiratory failure. Suspect secondarily to #1. We will continue SIMV titrating t o clinical response. Serial ABG. Repeat portable chest x-ray in the a.m. Consult Pulmonology Servi ce for ventilatory management. Add DuoNeb q.4 hours. Add Solu-Medrol 40 mg IV q.6 hours. 4. Severe deconditioning. We will obtain PT evaluation when patient clinically stabilizes. 5. Chronic obstructive pulmonary disease. We will continue general pulmonary supportive measures as outlined previously. 6. Prophylaxis. Sequential compression devices while in bed. Pepcid 20 mg IV q.12 hours. PT evalu ation when clinically stabilizing. 7. Code status is FULL. Surrogate medical decision maker is Toribio Carrington. TOTAL CRITICAL CARE TIME: 32 minutes.
[2018-02-13] MEDS ORDERED: Cefepime 2 GM in Sodium Chloride 0.9% 100 ML IVPB SCH (04:00)
[2018-02-13 05:31] LABS: Anion Gap 15 mmol/L (10-20); BUN (Urea Nitrogen) 76 mg/dL (9.8-20.1); Calc. Creatinine Clearance 15 mL/min (70-130); Calcium 8.4 mg/dL (7.8-10.44); Carbon Dioxide 20 mmol/L (23-31); Chloride 117 mmol/L (98-107); Estimated GFR-MDRD 23; Glucose 149 mg/dL (83-110); Potassium 4.7 mmol/L (3.5-5.1); Sodium 147 mmol/L (136-145)
[2018-02-13 06:13] LABS: Band 34 % (5-11); Hemoglobin 10.1 g/dL (12.0-16.0); Lymphocytes 10 % (21-51); MDiff Complete? YES; Mean Corpuscular HGB CONC 31.7 g/dL (32.0-36.0); Mean Corpuscular Hemoglobin 32.8 pg (27.0-31.0); Mean Platelet Volume 8.3 fL (7.4-10.4); Metamyelocyte 5 % (0-0); Monocytes 8 % (0-10); Myelocyte 1 % (0-0); Neutrophil 42 % (42-75); Platelet Count 298 thou/uL (130-400); RBC Distribution Width 12.6 % (11.5-14.5); Red Blood Cell (RBC) Count 3.07 mill/uL (4.20-5.40); Toxic Granulation SLIGHT; White Blood Cell (WBC) Count 14.9 thou/uL (4.8-10.8)
[2018-02-13] MEDS: Sodium Chloride 0.9% 1,000 ML IV SCH ×2 (06:44→10:00)
[2018-02-13] MEDS: Lorazepam 2 MG/ML VIAL SLOW IVP PRN ×2 (08:07→19:45)
--- NOTE | 2018-02-13 09:24 | RAD ---
FRONTAL VIEW CHEST: COMPARISON: Previous day. INDICATION: Ventilated patient. FINDINGS: Lungs are hyperinflated. Endotracheal and enteric catheters remain. Patchy left lower lobe densitie s persist. There is relative lucency of the hyperinflated right lung with suture material seen centr ally. IMPRESSION: 1. Persistent patchy opacification of the left lung notably at the lower aspect. 2. Chronic obstructive pulmonary disease. 3. Recommend continued imaging followup. POS: [facility]
[2018-02-13 10:30] LABS: Actual Bicarbonate (HCO3a) 16.6 mEq/L (22-28); CO2 Tension 30.1 mmHg (35.0-45.0); pH, Arterial 7.36 (7.35-7.45)
[2018-02-13 10:31] LABS: Base Excess (BEa) -7.8 mEq/L (-2.0 to +3.0); Hemoglobin (Hb) 10.7 g/dL (12.0-16.0)
[2018-02-13 10:32] LABS: Calcium, Ionized 1.2 mmol/L (1.12-1.30); Puncture Site RB
[2018-02-13 10:33] LABS: ALV-art Gradient 372.475 (0-20)
[2018-02-13] MEDS: Norepinephrine 8 MG/0.9% NS 250 ML IVPB SCH (11:25)
[2018-02-13 13:15] LABS: Vancomycin, Random 11.4 ug/mL (See Comment)
--- NOTE | 2018-02-13 13:40 | PRG ---
DATE OF SERVICE: 02/13/2018 SUBJECTIVE: Ms. Strange is sedated for ventilation. She is clinically unchanged. OBJECTIVE: VITAL SIGNS: Blood pressure 108/45, heart rate is 100, respiratory rate is 20, oximetry is 100%, now on 70%, she has been turned down to 50%. Intake and output is positive 11.79 liters. LUNGS: Clear anteriorly. HEART: Regular rhythm. ABDOMEN: Soft. EXTREMITIES: Without edema. GENERAL: She is extremely cachectic and weak appearing. Apparently, no one has been able to locate family. She still has a faint infiltrate in the left lung. Right lung is hyperinflated. LABORATORY DATA: White count 14.9, hemoglobin 10.1, platelets 298,000. Sodium 147, potassium 4.7, chloride 117, bicarbonate 20, BUN 76, creatinine 2.09. Creatinine was 2.8 3 yesterday. IMPRESSION: 1. Respiratory failure. 2. Extreme cachexia. 3. Dementia. 4. Hyperosmolar state that is in part secondary to intravascular free water depletion and volume res uscitation. 5. Acute on chronic kidney disease. PLAN: Continue to try to locate family, continue to treat her for a left lung pneumonia. Treat her COPD with nebulizer treatments, but these need to be scheduled instead of p.r.n. A chance for any ty pe of meaningful survival is extremely small in my opinion. We will decrease her FiO2. We will continue with her current rate of mechanical ventilation. We libia l add free water to her IV fluids. I suspect most of her metabolic acidosis at this point is hyperch loremic. Critical care time, 30 minutes.
[2018-02-13] MEDS ORDERED: Vancomycin HCl 500 MG in Sodium Chloride 0.9% 100 ML IVPB SCH (14:00)
[2018-02-13] MEDS: Sodium Chloride 0.45% 1,000 ML IV SCH ×2 (16:23→23:00)
--- NOTE | 2018-02-13 20:13 | PDOC.PN ---
- Subjective Encounter Start Date: 02/13/18 Encounter Start Time: 11:00 Subjective: f/u for septic shock and resp failure on mech vent. Remains sedate in SIMV. -: Currently receiving Cefepime/Vanc/Solumedrol. - Objective Resuscitation Status: Resuscitation Status FULL:Full Resuscitation MAR Reviewed: Yes Vital Signs & Weight: Vital Signs (12 hours) Temp Pulse Resp BP Pulse Ox 02/13/18 18:36 78 20 93 L 02/13/18 18:00 20 02/13/18 16:00 98.5 F 20 02/13/18 14:42 93 104/47 L 02/13/18 14:00 20 02/13/18 12:00 97.6 F 02/13/18 10:13 92 81/45 L 02/13/18 10:00 22 H Weight Admit Weight 99 lb 6.848 oz Weight 99 lb 6.848 oz Most Recent Monitor Data Heart Rate from ECG 85 NIBP 104/32 NIBP BP-Mean 47 Respiration from ECG 20 SpO2 93 I&O: 02/12/18 02/13/18 02/14/18 06:59 06:59 06:59 Intake Total 42243 2037 Output Total 290 590 Balance 02411 1447 Result Diagrams: 02/13/18 04:45 02/13/18 04:45 Additional Labs: Microbiology 02/12/18 11:55 Venous blood - Left Hand Blood Culture - Preliminary Specimen has been received and culture in progress. No Growth to date. 02/12/18 11:51 Venous blood - Left Arm Blood Culture - Preliminary Specimen has been received and culture in progress. No Growth to date. 02/12/18 11:25 Urine Straight Catheter Urine Culture - Preliminary NO GROWTH AT 24 HOURS Laboratory Tests 02/12/18 02/12/18 02/12/18 11:46 11:51 11:51 WBC 11.1 H Hgb 11.7 L Band Neuts % (Manual) 36 H Sodium 141 Carbon Dioxide 24 Creatinine 2.83 H Lactic Acid 2.3 H Cortisol Random Vancomycin 02/12/18 02/12/18 02/12/18 16:10 19:21 22:57 WBC Hgb Band Neuts % (Manual) Sodium Carbon Dioxide Creatinine Lactic Acid 2.5 H 3.7 H 2.9 H Cortisol Random Vancomycin 02/13/18 02/13/18 02/13/18 04:45 04:45 12:48 WBC Hgb Band Neuts % (Manual) 34 H Sodium Carbon Dioxide Creatinine Lactic Acid Cortisol 82.20 Random Vancomycin 11.4 Radiology Reviewed by me: Yes (PCXR - LLL infiltrate, chronic changes bilat) EKG Reviewed by me: Yes (Tele - SR) Phys Exam - Physical Examination sedate on mech ventilation, ill-appearing ETT/NGT in place HEENT: sclera anicteric, oral pharynx no lesions Neck: no nodes, no JVD, supple, full ROM diminished in bases Respiratory: no wheezing, no rhonchi S1, S2 Cardiovascular: RRR, no significant murmur, no rub, gallop Gastrointestinal: soft, non-tender, no distention, positive bowel sounds Musculoskeletal: no edema, pulses present Skin: no rash, normal turgor, cap refill <2 seconds Deviation from normal: Dalal with vicki urine Dx/Plan (1) Septic shock Code(s): A41.9 - SEPSIS, UNSPECIFIED ORGANISM; R65.21 - SEVERE SEPSIS WITH SEPTIC SHOCK Status: Acute Comment: Suspected like from pulmonic source, continue Cefepime and Vancomycin, IVF's, serial Lactate (2) DONNA (acute kidney injury) Code(s): N17.9 - ACUTE KIDNEY FAILURE, UNSPECIFIED Status: Acute Comment: Improved, continue IVF's, avoid nephrotoxic meds and limit contrast exposure (3) Acute respiratory failure with hypoxia Code(s): J96.01 - ACUTE RESPIRATORY FAILURE WITH HYPOXIA Status: Acute (4) Acute hypernatremia Code(s): E87.0 - HYPEROSMOLALITY AND HYPERNATREMIA Status: Acute Comment: Continue SIMV, not currently weanable (5) Severe protein-calorie malnutrition Code(s): E43 - UNSPECIFIED SEVERE PROTEIN-CALORIE MALNUTRITION Status: Chronic Comment: Ensure TID when tolerating po intake - Plan continue antibiotics, PT/OT, nephrology social worker, speech therapy, respiratory therapy, DVT proph w/SCDs continue critical support -: Continue Cefepime/Vancomycin -: Continue IVF's and increase free-H20 intake -: Levophed for pressor support -: Continue Solumedrol 40mg IV q6h * AM lab: BMP, CBC, ABG * PCXR in am
[2018-02-13] MEDS ORDERED: Vasopressin 40 UNIT, Admixture Fee 1 EACH in Sodium Chloride 0.9% 100 ML IV PRN (20:19)
[2018-02-13] MEDS: Famotidine/PF 20 mg/2ml Vial SLOW IVP SCH (20:25)
[2018-02-13] MEDS ORDERED: Phentolamine Mesylate 5 MG VIAL SC SCH (20:30)
[2018-02-13] MEDS ORDERED: Sodium Chloride 0.9% 1,000 ML IV SCH (20:30)
[2018-02-14] MEDS: Cefepime 2 GM in Sodium Chloride 0.9% 100 ML IVPB SCH (03:49)
[2018-02-14 04:31] LABS: Anion Gap 12 mmol/L (10-20); BUN (Urea Nitrogen) 60 mg/dL (9.8-20.1); Calc. Creatinine Clearance 22 mL/min (70-130); Calcium 8.2 mg/dL (7.8-10.44); Carbon Dioxide 16 mmol/L (23-31); Chloride 122 mmol/L (98-107); Estimated GFR-MDRD 37; Glucose 126 mg/dL (83-110); Potassium 4.2 mmol/L (3.5-5.1); Sodium 146 mmol/L (136-145)
[2018-02-14 05:51] LABS: Band 36 % (5-11); Hemoglobin 8.6 g/dL (12.0-16.0); Lymphocytes 5 % (21-51); MDiff Complete? YES; Mean Corpuscular Hemoglobin 33.6 pg (27.0-31.0); Mean Platelet Volume 8.1 fL (7.4-10.4); Metamyelocyte 8 % (0-0); Monocytes 4 % (0-10); Neutrophil 46 % (42-75); PLT Morphology Comment Appears Adequate; Platelet Count 232 thou/uL (130-400); Promyelocytes 1 % (0-0); RBC Distribution Width 12.9 % (11.5-14.5); Red Blood Cell (RBC) Count 2.54 mill/uL (4.20-5.40); Toxic Granulation SLIGHT; White Blood Cell (WBC) Count 15.6 thou/uL (4.8-10.8)
[2018-02-14] MEDS: Sodium Chloride 0.45% 1,000 ML IV SCH ×4 (05:51→23:27)
[2018-02-14] MEDS: Norepinephrine 8 MG/0.9% NS 250 ML IVPB SCH ×2 (06:44→14:38)
[2018-02-14 09:47] LABS: Actual Bicarbonate (HCO3a) 15.7 mEq/L (22-28); Base Excess (BEa) -9.5 mEq/L (-2.0 to +3.0); CO2 Tension 31.6 mmHg (35.0-45.0); O2 Tension (PaO2) 67.3 mmHg (> 60.0); pH, Arterial 7.31 (7.35-7.45)
[2018-02-14 09:48] LABS: Calcium, Ionized 1.2 mmol/L (1.12-1.30); Hemoglobin (Hb) 9.3 g/dL (12.0-16.0); Puncture Site RRA
[2018-02-14] MEDS: Lorazepam 2 MG/ML VIAL SLOW IVP PRN (11:48)
--- NOTE | 2018-02-14 12:02 | RAD ---
ONE VIEW CHEST: COMPARISON: 02/13/18. HISTORY: Ventilated patient. Respiratory distress. FINDINGS: Redemonstration of endotracheal and nasogastric tubes. Atherosclerosis of the aorta is identified. Diminished left lung volume is again noted. Overall, there is hyperinflation of the lungs with areas of scarring. Small left-sided effusion is suspected given increased opacification since the previous exam. IMPRESSION: Small left-sided pleural effusion. POS: [facility]
[2018-02-14 13:50] LABS: Vancomycin, Random 13.5 ug/mL (See Comment)
[2018-02-14] MEDS ORDERED: Vancomycin HCl 500 MG in Sodium Chloride 0.9% 100 ML IVPB SCH (14:00)
[2018-02-14] MEDS ORDERED: Digoxin 0.5 MG/2 ML AMP SLOW IVP SCH (14:00)
--- NOTE | 2018-02-14 14:03 | RAD ---
CHEST 1 VIEW: COMPARISON: 02/14/18 at 4:19 a.m. FINDINGS: Interval placement of a right-sided internal jugular central venous catheter. The distal tip is pres umed to be in the region of the superior vena cava. There is no pneumothorax. Chronic changes in th e lung parenchyma are redemonstrated. Stable opacification of the left hemithorax. IMPRESSION: Interval placement of a right-sided internal jugular central venous catheter. NO pneumothorax. POS: [facility]
[2018-02-14] MEDS: Vancomycin HCl 500 MG in Sodium Chloride 0.9% 100 ML IVPB SCH (14:28)
[2018-02-14] MEDS ORDERED: Norepinephrine 8 MG/0.9% NS 0 ML ONE (14:32)
--- NOTE | 2018-02-14 18:02 | PDOC.PN ---
- Subjective Encounter Start Date: 02/14/18 Encounter Start Time: 18:00 Subjective: f/u for acute hypoxic resp failure, septic shock and A-fib RVR. -: Remains critical on SIMV mech vent. Cardizem gtt started but rate -: uncontrolled. Receiving Vanc/Cefepime. - Objective Resuscitation Status: Resuscitation Status FULL:Full Resuscitation MAR Reviewed: Yes Vital Signs & Weight: Vital Signs (12 hours) Temp Pulse Resp BP Pulse Ox 02/14/18 16:32 112 H 94/50 L 02/14/18 14:19 138 H 02/14/18 14:00 20 02/14/18 13:06 131 H 95/55 L 02/14/18 12:00 20 02/14/18 11:00 98.3 F 02/14/18 10:00 20 02/14/18 09:34 93 117/55 L 02/14/18 08:00 97.9 F 99 20 99 Weight Admit Weight 99 lb 6.848 oz Weight 99 lb 6.848 oz Most Recent Monitor Data Heart Rate from ECG 118 NIBP 104/49 NIBP BP-Mean 64 Respiration from ECG 20 SpO2 97 I&O: 02/13/18 02/14/18 02/15/18 06:59 06:59 06:59 Intake Total 77269 3836 Output Total 290 1400 850 Balance 46219 2436 -850 Result Diagrams: 02/14/18 03:29 02/14/18 03:29 Additional Labs: Microbiology 02/12/18 11:55 Venous blood - Left Hand Blood Culture - Preliminary Specimen has been received and culture in progress. No Growth to date. 02/12/18 11:51 Venous blood - Left Arm Blood Culture - Preliminary Specimen has been received and culture in progress. No Growth to date. 02/12/18 11:25 Urine Straight Catheter Urine Culture - Preliminary NO GROWTH AT 24 HOURS Laboratory Tests 02/12/18 02/12/18 02/12/18 11:46 11:51 11:51 WBC 11.1 H Hgb 11.7 L Band Neuts % (Manual) 36 H Sodium 141 Carbon Dioxide 24 Creatinine 2.83 H Lactic Acid 2.3 H Cortisol Random Vancomycin 02/12/18 02/12/18 02/12/18 16:10 19:21 22:57 WBC Hgb Band Neuts % (Manual) Sodium Carbon Dioxide Creatinine Lactic Acid 2.5 H 3.7 H 2.9 H Cortisol Random Vancomycin 02/13/18 02/13/18 02/13/18 04:45 04:45 12:48 WBC Hgb Band Neuts % (Manual) 34 H Sodium Carbon Dioxide Creatinine Lactic Acid Cortisol 82.20 Random Vancomycin 11.4 Radiology Reviewed by me: Yes (PCXR - R IJ in place, small left pleural effusion ) EKG Reviewed by me: Yes (Tele - SR) Phys Exam - Physical Examination sedate on mech vent, ETT in place HEENT: PERRLA, sclera anicteric, oral pharynx no lesions Neck: no nodes, no JVD, supple, full ROM diminished in bases Respiratory: no wheezing, no rales, no rhonchi S1, S2 tachycardic Cardiovascular: no significant murmur, no rub, irregular Gastrointestinal: soft, non-tender, no distention, positive bowel sounds Musculoskeletal: no edema, pulses present Skin: no rash, normal turgor, cap refill <2 seconds Deviation from normal: Dalal with gross hematuria Dx/Plan (1) Septic shock Code(s): A41.9 - SEPSIS, UNSPECIFIED ORGANISM; R65.21 - SEVERE SEPSIS WITH SEPTIC SHOCK Status: Acute Comment: Suspected like from pulmonic source, continue Cefepime and Vancomycin, IVF's, serial Lactate (2) DONNA (acute kidney injury) Code(s): N17.9 - ACUTE KIDNEY FAILURE, UNSPECIFIED Status: Acute Comment: Improved, continue IVF's, avoid nephrotoxic meds and limit contrast exposure (3) Acute respiratory failure with hypoxia Code(s): J96.01 - ACUTE RESPIRATORY FAILURE WITH HYPOXIA Status: Acute Comment: Remains on SIMV FIO2 40% (4) Acute hypernatremia Code(s): E87.0 - HYPEROSMOLALITY AND HYPERNATREMIA Status: Acute Comment: 1/ 2 NS at 150ml/h, serial Na+ (5) Severe protein-calorie malnutrition Code(s): E43 - UNSPECIFIED SEVERE PROTEIN-CALORIE MALNUTRITION Status: Chronic Comment: Ensure TID when tolerating po intake (6) Atrial fibrillation with RVR Code(s): I48.91 - UNSPECIFIED ATRIAL FIBRILLATION Status: Acute Comment: Recurrent, IVF's, consult Cardiology, hypotension complicating rate control measures, Cardizem gtt - Plan continue antibiotics, older adult social work specialist, respiratory therapy, DVT proph w/SCDs Continue critical support -: Continue Vanc/Cefepime -: Cardizem gtt for rate contol -: Levophed for pressor support and persistent hypotension -: Continue Solumedrol 40mg IV q6h * AM lab: BMP, CBC * PCXR in am * Will need to discuss goals of care with family in am, will need to consider Palliative/Hospice
--- NOTE | 2018-02-14 19:30 | PRG ---
DATE OF SERVICE: 02/14/2018 SUBJECTIVE: Sophie Strange is in no distress. She is receiving sedation from mechanical ventilation. OBJECTIVE: VITAL SIGNS: Blood pressure 94/50, heart rate 112. She is still on a low dose of Levophed. LUNGS: Clear anteriorly. HEART: Regular rhythm. ABDOMEN: Soft. EXTREMITIES: Without asymmetry. IMAGING: Chest radiograph shows left-sided alveolar infiltrates that is more apparent now. This michael m was done after a central line, shows proper placement of the central line. LABORATORY DATA: Sodium 146, potassium 4.2, chloride 122, bicarbonate 16. BUN 60 and creatinine 1.3 8, down from 2.09. White count 15.6, hemoglobin 8.6, platelets 232,000. Blood gas 7.31, pCO2 of 31, pO2 of 67. Microbiology, negative urine and blood cultures. IMPRESSION: Severe intravascular volume depletion secondary to failure to thrive secondary to advanc ed dementia based on the history that has been provided. There are only distant family members who a re apparently not willing, I am told by the nurse, to make any medical decisions on her. Apparently, there was a recommendation to contact an assistant district attorney that has her living will. This becomes extremely difficult. She needed central access and she still has pressor requirements, so we will do this today. We will continue aggressive support. Hopefully, palliative care can help sort through this. Otherwise, there will have to be some ethics committee involvement. I do believe that this is a hopeless situation with advanced obstructive lung disease; pneumonia that involves he r entire left lung; and then what is probably dementia given that when she was discharged, she was or iented only x1 going to the detention. Critical care time, 45 minutes.
--- NOTE | 2018-02-14 21:06 | OP ---
PROCEDURE: Central line placement. ATTORNEY LAW CLERK: Rainer Mclaughlin M.D. INDICATION: No peripheral access, extreme cachexia, need for pressors. DESCRIPTION OF PROCEDURE: Right internal jugular vein was easily cannulated after 5 mL of 1% lidocai ne. A wire was easily passed. Vein dilator was inserted and withdrawn. Triple lumen catheter was i nserted and sewn in place x2. Good blood return was obtained from all 3 ports. Chest radiograph alyssa ws proper placement of the catheter, no pneumothorax was seen.
[2018-02-14] MEDS: Famotidine/PF 20 mg/2ml Vial SLOW IVP SCH (21:30)
[2018-02-15] MEDS: Cefepime 2 GM in Sodium Chloride 0.9% 100 ML IVPB SCH (03:56)
[2018-02-15 05:26] LABS: Anion Gap 14 mmol/L (10-20); BUN (Urea Nitrogen) 56 mg/dL (9.8-20.1); Calc. Creatinine Clearance 24 mL/min (70-130); Calcium 8.5 mg/dL (7.8-10.44); Carbon Dioxide 15 mmol/L (23-31); Chloride 119 mmol/L (98-107); Estimated GFR-MDRD 32; Glucose 114 mg/dL (83-110); Sodium 144 mmol/L (136-145)
[2018-02-15 06:02] LABS: Band 29 % (5-11); Hemoglobin 8.2 g/dL (12.0-16.0); Lymphocytes 2 % (21-51); MDiff Complete? YES; Macrocytosis SLIGHT = 6-15 cells (100X) (0-5/hpf); Mean Corpuscular HGB CONC 32.3 g/dL (32.0-36.0); Mean Corpuscular Hemoglobin 33.4 pg (27.0-31.0); Mean Platelet Volume 7.5 fL (7.4-10.4); Monocytes 1 % (0-10); Neutrophil 68 % (42-75); Platelet Count 234 thou/uL (130-400); RBC Distribution Width 12.9 % (11.5-14.5); Red Blood Cell (RBC) Count 2.47 mill/uL (4.20-5.40); White Blood Cell (WBC) Count 20.3 thou/uL (4.8-10.8)
[2018-02-15 07:34] LABS: pH, Arterial 7.35 (7.35-7.45)
[2018-02-15 07:35] LABS: Actual Bicarbonate (HCO3a) 13.8 mEq/L (22-28); Base Excess (BEa) -9.9 mEq/L (-2.0 to +3.0); CO2 Tension 25.6 mmHg (35.0-45.0); Calcium, Ionized 1.2 mmol/L (1.12-1.30); O2 Tension (PaO2) 104.2 mmHg (> 60.0)
[2018-02-15 07:36] LABS: Puncture Site LRA
--- NOTE | 2018-02-15 07:46 | PRG ---
DATE OF SERVICE: 02/15/2018 PHYSICAL EXAMINATION: VITAL SIGNS: Ms. Sen heart rate is 108, blood pressure 142/51, oximetry is 96, blood pressure ea rlier was 134/47. LUNGS: Remarkable for rhonchi on the left. CARDIOVASCULAR: Regular rhythm. ABDOMEN: Soft and nontender. EXTREMITIES: Without asymmetry. LABORATORY DATA: White count 20.3, hemoglobin 8.2, platelets 234. Sodium 144, potassium 4, chloride 119, bicarb 15, BUN 56, creatinine 1.54. IMPRESSION: 1. Pneumonia. 2. Advanced chronic obstructive pulmonary disease. 3. Suspect underlying severe dementia. 4. Failure to thrive with cachexia and severe protein malnutrition. PLAN: Continue support. There is no family apparently willing to make decisions, so this becomes a difficult situation. Hopefully, palliative care will be able to sort through some of these issues. We will continue with current critical care measures, antimicrobial therapy, nebulized treatments, st eroids, etc. She is also receiving nutritional support.
--- NOTE | 2018-02-15 09:41 | RAD ---
PORTABLE CHEST: Date: 02/15/18 HISTORY: Respiratory distress. COMPARISON: 02/14/18. FINDINGS: Endotracheal and NG tubes are in satisfactory position. Right central line is unchanged in position. Pleural and parenchymal changes of the left lung are stable with volume loss type change. IMPRESSION: Stable exam. POS: [facility]
--- NOTE | 2018-02-15 12:14 | CON ---
DATE OF CONSULTATION: 02/15/2018 REASON FOR CONSULTATION: Atrial fibrillation. HISTORY OF PRESENT ILLNESS: Ms. Strange is a pleasant 82-year-old white female who comes to the hospit al, sent from the [facility] in [place] for a temperature. She had a fever of 101 and it was noted that her activity was much lower than normal. She was admitted here in December of this year for a COPD exacerbation and she had a fall and broke her hip, had to undergo surgery. I got involved for p reoperative evaluation as well as her going into atrial fibrillation after the fact she broke back in to normal rhythm after starting amiodarone. She was discharged home and sent to [facility] and she is back here for the above. She was diagnosed with pneumonia and was started on antibiotics; however, while she was in the ER, she became much more confused and unable to protect her airway, so she was i ntubated and she is currently on mechanical intubation and she is unable to give me any history at th is time. PAST MEDICAL HISTORY: 1. Hypertension. 2. Osteoarthritis. 3. Left hip fracture. 4. History of paroxysmal atrial fibrillation. 5. Chronic obstructive pulmonary disease. 6. Tobacco abuse. 7. Anxiety, depression. 8. Deconditioning. 9. Right carotid artery disease. PAST SURGICAL HISTORY: 1. Right carotid endarterectomy. 2. Appendectomy. 3. Percutaneous screw fixation of left femur recently. OUTPATIENT MEDICATIONS: 1. Alprazolam. 2. Amiodarone 200 mg a day. 3. Amlodipine 10 mg a day. 4. Aspirin 81 a day. 5. Tenormin 50 mg b.i.d. 6. Zev. 7. DuoNeb. 8. Zestril 10 mg b.i.d. 9. Seroquel. ALLERGIES: LEVAQUIN and PENICILLIN. FAMILY HISTORY: Noncontributory. SOCIAL HISTORY: Former alcohol and tobacco use. Tobacco use was about a pack a day. Alcohol use ab out 2-3 glasses of wine every other day. REVIEW OF SYSTEMS: Unobtainable as she is currently still ventilated. PHYSICAL EXAMINATION: VITAL SIGNS: Temperature 98.8, pulse 106, respiration rate 20, satting 98% on 40% FiO2. GENERAL: Sedated and intubated. LUNGS: Lungs have reduced breath sounds bilateral. CARDIOVASCULAR: Tachycardic, but regular, S1, S2, no S3, S4. There is a grade 2/6 systolic murmur l eft lower sternal border. ABDOMEN: Soft, positive bowel sounds. EXTREMITIES: 1+ edema. SKIN: Warm and dry. LABORATORY WORK: Reviewed. White count of 20, hemoglobin of 8.2 down from 11.7, platelet count of 2 34. Chemistries were reviewed. Creatinine went from 2 down to 1.3 now a little high at 1.54. UA wi th 2+ bacteria. EKG was reviewed. Initial EKG was atrial fibrillation with RVR, heart rate in the 110s. Currently, it seems like telemetry shows sinus tachycardia versus 2:1 flutter, most likely sinus tachycardia. ASSESSMENT AND PLAN: 1. Atrial fibrillation with rapid ventricular response: She was on diltiazem drip and she is back i nto sinus apparently, although she is still tachycardic. We will get a 12-lead to make sure that thi s is not 2:1 flutter. 2. She is off of the diltiazem drip. She continues to be on Levophed for her septic shock. If she were to recur her rapid atrial fibrillation, I would recommend starting an amiodarone drip to not get her blood pressure too low. IV digoxin can also be used if the amiodarone drip is not enough. 3. Acute diastolic heart failure. This is mild. This is most likely related to her pneumonia. She does have a little bit of edema probably from her fluid resuscitation. I would hesitate to start an y Lasix at this time until her pneumonia is a little more stable and she is ready to get extubated. Thank you for letting us participate in the care of your patient. We will follow.
[2018-02-15] MEDS: Vancomycin HCl 500 MG in Sodium Chloride 0.9% 100 ML IVPB SCH (14:30)
--- NOTE | 2018-02-15 14:54 | PQF ---
DATE: 02-16-18 ATTN: DR. AMIRA PALACIOS Please exercise your independent, professional judgment in responding to the clarification form. Clinical indicators are provided on the bottom of this form for your review Please check appropriate box(s): ___x____ I (concur) with the Nursing Assessment findings as stated below. I (concur) with the ER Assessment findings as stated below [ ] Pressure Ulcer: (Stage I: Erythema; Stage II: Partial thickness; Stage III : Full thickness; Stage IV: Necrosis to muscle/bone) [ ] Location: POA: [ ] Yes [ ] No[ ] Unable to determine Stage (I to IV): (Left Right Bilateral N/A ) [ ] Gangrene present [ ] Yes [ ] ischemic gangrene [ ] gas gangrene [ ] No [ ] No pressure ulcer diagnosis [ ] Deep tissue injury [ ] Other diagnosis [ ] Unable to determine In addition, please specify: Present on Admission (POA): [ x ] Yes [ ] No [ ] Unable to determine For continuity of documentation, please document condition throughout progress notes and discharge summary. Thank You. CLINICAL INDICATORS - SIGNS / SYMPTOMS / LABS NURSE ASSESSMENT 02-12-18: SACROCOCCYGEAL PRESSURE ULCER STAGE 3 ER DOCUMENTATION: PRESSURE ULCER TO THE SACRUM, STAGE 2 RISK FACTORS: [facility] DECREASED ACTIVITY, POOR SKIN TURGOR, SEVERE DEHYDRATION, SEVERE DECONDITIONING PN DR. PALACIOS 02-13-18: SEVERE PROTEIN CALORIE MALNUTRITION TREATMENTS:NURSE ASSESSMENT- DRY & INTACT DRESSING, MERIPLEX (This form is maintained as a part of the permanent medical record) 2014 [employer]. All Rights Reserved [email or web address] Office: [phone] [facility] HOSPITALJennifer
[2018-02-15] MEDS: Norepinephrine 8 MG/0.9% NS 250 ML IVPB SCH (17:33)
[2018-02-15] MEDS: Sodium Chloride 0.45% 1,000 ML IV SCH (20:35)
[2018-02-15] MEDS: Famotidine/PF 20 mg/2ml Vial SLOW IVP SCH (20:35)
--- NOTE | 2018-02-15 21:14 | PDOC.PN ---
- Subjective Encounter Start Date: 02/15/18 Encounter Start Time: 15:00 Subjective: f/u for septic shock of suspected pulmonic source on Cefepime/Vanc. -: Remains on Levophed for pressor support and IVF's. Tele showing -: sinus tachycardia. - Objective Resuscitation Status: Resuscitation Status FULL:Full Resuscitation MAR Reviewed: Yes Vital Signs & Weight: Vital Signs (12 hours) Temp Pulse Resp BP Pulse Ox 02/15/18 20:00 98.2 F 27 H 02/15/18 18:52 107 H 02/15/18 18:51 96 02/15/18 18:00 20 02/15/18 16:00 98.7 F 20 02/15/18 15:04 106 H 111/44 L 02/15/18 15:03 107 H 19 99 02/15/18 14:00 22 H 02/15/18 12:00 98.9 F 20 02/15/18 10:53 106 H 20 127/46 L 98 02/15/18 10:00 20 Weight Admit Weight 99 lb 6.848 oz Weight 117 lb 4.575 oz Most Recent Monitor Data Heart Rate from ECG 110 NIBP 112/48 NIBP BP-Mean 71 Respiration from ECG 27 SpO2 100 I&O: 02/14/18 02/15/18 02/16/18 06:59 06:59 06:59 Intake Total 3836 3850.7 3.2 Output Total 1400 1530 626 Balance 2436 2320.7 -622.8 Result Diagrams: 02/15/18 04:38 02/15/18 04:38 Additional Labs: Microbiology 02/12/18 11:55 Venous blood - Left Hand Blood Culture - Preliminary Specimen has been received and culture in progress. No Growth to date. 02/12/18 11:51 Venous blood - Left Arm Blood Culture - Preliminary Specimen has been received and culture in progress. No Growth to date. 02/12/18 11:25 Urine Straight Catheter Urine Culture - Preliminary NO GROWTH AT 24 HOURS Laboratory Tests 02/12/18 02/12/18 02/12/18 11:46 11:51 11:51 WBC 11.1 H Hgb 11.7 L Band Neuts % (Manual) 36 H Sodium 141 Carbon Dioxide 24 Creatinine 2.83 H Lactic Acid 2.3 H Cortisol Random Vancomycin 02/12/18 02/12/1802/12/18 16:10 19:21 22:57 WBC Hgb Band Neuts % (Manual) Sodium Carbon Dioxide Creatinine Lactic Acid 2.5 H 3.7 H 2.9 H Cortisol Random Vancomycin 02/13/18 02/13/18 02/13/18 04:45 04:45 12:48 WBC Hgb Band Neuts % (Manual) 34 H Sodium Carbon Dioxide Creatinine Lactic Acid Cortisol 82.20 Random Vancomycin 11.4 02/14/18 02/14/18 02/14/18 03:29 03:29 13:06 WBC 15.6 H Hgb 8.6 L Band Neuts % (Manual) 36 H Sodium 146 H Carbon Dioxide 16 L Creatinine 1.38 H Lactic Acid Cortisol Random Vancomycin 13.5 02/15/18 04:38 WBC Hgb Band Neuts % (Manual) 29 H Sodium Carbon Dioxide Creatinine Lactic Acid Cortisol Random Vancomycin Radiology Reviewed by me: Yes (PCXR - parenchymal changes in LLL, lines/tubes in place) EKG Reviewed by me: Yes (Tele - sinus tachycardia) Phys Exam - Physical Examination sedate, ill-appearing, ETT in place HEENT: sclera anicteric, oral pharynx no lesions Neck: no nodes, no JVD, supple, full ROM Respiratory: no wheezing, no rales, no rhonchi, clear to auscultation bilateral tachycardic S1, S2 Cardiovascular: no significant murmur, no rub, gallop Gastrointestinal: soft, non-tender, no distention, positive bowel sounds Musculoskeletal: no edema, pulses present Skin: no rash, normal turgor, cap refill <2 seconds Deviation from normal: Dalal with gross hematuria Dx/Plan (1) Septic shock Code(s): A41.9 - SEPSIS, UNSPECIFIED ORGANISM; R65.21 - SEVERE SEPSIS WITH SEPTIC SHOCK Status: Acute Comment: Suspected like from pulmonic source, continue Cefepime and Vancomycin, IVF's, persistent (2) DONNA (acute kidney injury) Code(s): N17.9 - ACUTE KIDNEY FAILURE, UNSPECIFIED Status: Acute Comment: Improving slowly, continue IVF's, avoid nephrotoxic meds and limit contrast exposure (3) Acute respiratory failure with hypoxia Code(s): J96.01 - ACUTE RESPIRATORY FAILURE WITH HYPOXIA Status: Acute Comment: Remains on SIMV FIO2 40%, not weanable (4) Acute hypernatremia Code(s): E87.0 - HYPEROSMOLALITY AND HYPERNATREMIA Status: Acute Comment: 1/ 2 NS at 150ml/h, serial Na+, improving (5) Severe protein-calorie malnutrition Code(s): E43 - UNSPECIFIED SEVERE PROTEIN-CALORIE MALNUTRITION Status: Chronic Comment: Ensure TID when tolerating po intake (6) Atrial fibrillation with RVR Code(s): I48.91 - UNSPECIFIED ATRIAL FIBRILLATION Status: Acute Comment: Recurrent, IVF's, consult Cardiology, hypotension complicating rate control measures, Cardizem gtt d/c'd after converting to sinus but remains with sinus tachycardia - Plan plan discussed w/ family, continue antibiotics, PT/OT, social psychologist, respiratory therapy, DVT proph w/SCDs Continue critical support -: Not weanable off mech ventilation and likely will not be able to wean -: Continue Cefepime and Vancomycin -: Levophed gtt for pressor support -: Continue IVF's * AM lab: BMP, CBC * Poor prognosis, will meet with son today to discuss goals of care
--- NOTE | 2018-02-15 21:27 | PDOC.EVN ---
Event Note - Event Note Event Note: ACP note: Met with pt's son today who is MPOA for goals of care clarification. Discussed current clinical situation and septic shock and mechanical ventilation and that pt is not weanable or able to come off support. Likely this will not significantly change. Pt's son states his mother did not want to be sustained on life support or be placed on termite control technician tube feeds. Her overall functional status has declined rapidly over the last several months and continues to decline despite aggressive therapy. MPOA wishing to see how his mother will do over the next 24-48h and then likely pursue Palliative/Hospice care. Agreed with this course of action and will monitor pt's clinical response. All questions answered currently and MPOA verbalized understanding and agreement. Total ACP time: 25min
--- NOTE | 2018-02-15 21:34 | PDOC.EVN ---
Event Note - Event Note Event Note: February 15, 2018 To Whom It May Concern: Ms. Sophie Strange is currently incapacitated due to critical illness, respiratory failure and sepsis and unable to comprehend her condition or disclose her decisions regarding her own medical care or manage her financial state. She remains in a critical state under 24 hour medical care. Sincerely, Luis Felipe Ross D.O. Hospital[place]
[2018-02-16] MEDS: Propofol 1,000 MG/100 ML VIAL IV PRN ×2 (01:00→18:36)
[2018-02-16] MEDS: Sodium Chloride 0.45% 1,000 ML IV SCH (03:50)
[2018-02-16] MEDS: Cefepime 2 GM, Admixture Fee 1 EACH in Sodium Chloride 0.9% 100 ML IVPB SCH (04:18)
[2018-02-16 06:37] LABS: Hemoglobin 7.5 g/dL (12.0-16.0); Mean Corpuscular Hemoglobin 32.9 pg (27.0-31.0); Mean Platelet Volume 7.2 fL (7.4-10.4); Platelet Count 177 thou/uL (130-400); Red Blood Cell (RBC) Count 2.29 mill/uL (4.20-5.40); White Blood Cell (WBC) Count 13.8 thou/uL (4.8-10.8)
[2018-02-16 06:42] LABS: Anion Gap 14 mmol/L (10-20); BUN (Urea Nitrogen) 57 mg/dL (9.8-20.1); Band 16 % (5-11); Calc. Creatinine Clearance 22 mL/min (70-130); Calcium 7.9 mg/dL (7.8-10.44); Carbon Dioxide 14 mmol/L (23-31); Chloride 117 mmol/L (98-107); Estimated GFR-MDRD 30; Glucose 116 mg/dL (83-110); Lymphocytes 1 % (21-51); MDiff Complete? YES; Monocytes 4 % (0-10); Neutrophil 79 % (42-75); Potassium 3.6 mmol/L (3.5-5.1); Sodium 141 mmol/L (136-145)
[2018-02-16 07:17] LABS: Actual Bicarbonate (HCO3a) 13.4 mEq/L (22-28); Base Excess (BEa) -12.1 mEq/L (-2.0 to +3.0); CO2 Tension 28.6 mmHg (35.0-45.0); Hemoglobin (Hb) 6.1 g/dL (12.0-16.0); O2 Tension (PaO2) 74.2 mmHg (> 60.0); pH, Arterial 7.29 (7.35-7.45)
[2018-02-16 07:18] LABS: Calcium, Ionized 1.2 mmol/L (1.12-1.30); Puncture Site RRA
--- NOTE | 2018-02-16 08:15 | PRG ---
DATE OF SERVICE: 02/16/2018 Thirty-five minutes critical care time. Ms. Strange remains intubated on mechanical ventilation. I can get her to open her eyes, but she will not follow any commands for me specifically. PHYSICAL EXAMINATION: VITAL SIGNS: Temperature is 98.2, pulse 105, blood pressure 126/43. 24 hour intake 1945, output 104 1. She is currently on no vasopressors. HEENT: Pupils are reactive. Sclerae anicteric. Oropharynx, endotracheal tube in place. NECK: No JVD. LUNGS: Diminished breath sounds with some crackles at the bases. CARDIAC: S1, S2, slightly tachycardic. She is currently on no vasopressors. ABDOMEN: Soft, nontender, nondistended. Currently, not being fed. EXTREMITIES: No clubbing, cyanosis, or edema. LABORATORY DATA: Sodium 141, potassium 3.6, chloride 117, CO2 14, BUN 57, creatinine 1.6, glucose 11 6, pH 7.29, pCO2 28, pO2 of 74 that is on SIMV rate 20, tidal volume 400, PEEP 5, pressure support 10 , FiO2 40%. White blood cell count 13.8, hemoglobin 7.5, hematocrit 23.5, platelet count 177. ASSESSMENT: 1. Pneumonia. 2. Chronic obstructive pulmonary disease. 3. Acute on chronic respiratory failure requiring mechanical ventilation. 4. Dementia. 5. Generalized failure to thrive with severe protein calorie malnutrition. PLAN: 1. I have added bicarbonate to her IV fluids in hopes of improving her metabolic acidosis. 2. She is not weanable at the current time. 3. Wean steroids. 4. Discontinue vasopressors from her MAR. 5. I think her chances for recovery are quite poor. The patient's power of privacy attorney has been identi fied. I would think that a DNR would be appropriate given the circumstances involved. I would also consider withdrawal of care as her chances for functional recovery appear to be quite poor.
--- NOTE | 2018-02-16 09:44 | RAD ---
CHEST ONE VIEW: History: Dyspnea. Follow up. Comparison: 02-15-18 FINDINGS: Patient remains markedly rotated leftward. Cardiac silhouette predominately obscured by left basilar parenchymal and pleural opacity. Right lung remains well inflated. Calcification within the arterial structures. Lines and tubes appear unchanged in position. playground monitor leads overlie the chest. IMPRESSION: Left pleural fluid and other findings are stable. POS: [facility]
--- NOTE | 2018-02-16 12:42 | PDOC.CTH ---
Cardiology Progress Note - Subjective She remains intubated and sedated. - Objective Vital Signs Temp Pulse Resp BP Pulse Ox 02/16/18 10:21 109 H 132/48 L 02/16/18 10:18 112 H 33 H 99 02/16/18 10:00 24 H 02/16/18 08:00 97.4 F L 109 H 20 98 02/16/18 06:54 104 H 128/44 L 02/16/18 06:52 103 H 20 99 02/16/18 06:00 20 02/16/18 04:01 102 H 02/16/18 04:00 98.2 F 20 02/16/18 03:59 100 02/16/18 02:00 20 Admit Weight 99 lb 6.848 oz Weight 119 lb 0.794 oz 02/15/18 02/16/18 02/17/18 06:59 06:59 06:59 Intake Total 3850.7 1945.2 90 Output Total 1530 1041 385 Balance 2320.7 904.2 -295 - Physical Examination General/Neuro: alert & oriented x3, NAD Neck: no JVD present Lungs: other: (Reduced breath sounds bilat.) Heart: RRR Abdomen: NT/ND Extremities: + edema B (1+) - Telemetry Telemetry Rhythm: NSR - Labs Result Diagrams: 02/17/18 06:15 02/17/18 06:15 Troponin/CKMB CK-MB (CK-2) 1.6 ng/mL (0-6.6) 02/12/18 11:46 Troponin I 0.010 ng/mL (< 0.028) 02/12/18 11:46 - Assessment/Plan 1. Afib RVR, back in sinus. 2. Pneumonia 3. Acute hypoxic respiratory insufficiency. 4. COPD 5. Dementia PLAN: - Continue supportive care. - No new recs.
[2018-02-16 13:23] LABS: Vancomycin, Trough 17.4 ug/mL
[2018-02-16] MEDS: Vancomycin HCl 500 MG, Admixture Fee 1 EACH in Sodium Chloride 0.9% 100 ML IVPB SCH (14:17)
--- NOTE | 2018-02-16 17:28 | PDOC.PN ---
- Subjective Encounter Start Date: 02/16/18 Encounter Start Time: 17:26 Intubated - Objective Resuscitation Status: Resuscitation Status FULL:Full Resuscitation Vital Signs & Weight: Vital Signs (12 hours) Temp Pulse Resp BP Pulse Ox 02/16/18 16:00 98.6 F 23 H 02/16/18 14:23 108 H 115/44 L 02/16/18 14:22 106 H 20 98 02/16/18 14:00 24 H 02/16/18 12:00 98.4 F 23 H 02/16/18 10:21 109 H 132/48 L 02/16/18 10:18 112 H 33 H 99 02/16/18 10:00 24 H 02/16/18 08:00 97.4 F L 109 H 20 98 02/16/18 06:54 104 H 128/44 L 02/16/18 06:52 103 H 20 99 02/16/18 06:00 20 Weight Admit Weight 99 lb 6.848 oz Weight 119 lb 0.794 oz Most Recent Monitor Data Heart Rate from ECG 109 NIBP 112/46 NIBP BP-Mean 76 Respiration from ECG 26 SpO2 99 I&O: 02/15/18 02/16/18 02/17/18 06:59 06:59 06:59 Intake Total 3850.7 1945.2 190 Output Total 1530 1041 735 Balance 2320.7 904.2 -545 Result Diagrams: 02/16/18 05:50 02/16/18 05:50 Phys Exam - Physical Examination Intubated. Non-responsive. Neck: no JVD, supple Respiratory: no wheezing, no rhonchi Scattered rales. Cardiovascular: RRR, no significant murmur Gastrointestinal: soft, no distention generalized edema. Dx/Plan (1) Acute respiratory failure with hypoxia Code(s): J96.01 - ACUTE RESPIRATORY FAILURE WITH HYPOXIA Status: Acute Comment: Remains on SIMV FIO2 40%, not weanable (2) DONNA (acute kidney injury) Code(s): N17.9 - ACUTE KIDNEY FAILURE, UNSPECIFIED Status: Acute Comment: Worsening. Very poor UOP with dark, sedimentary urine. (3) Acute hypernatremia Code(s): E87.0 - HYPEROSMOLALITY AND HYPERNATREMIA Status: Acute (4) Atrial fibrillation with RVR Code(s): I48.91 - UNSPECIFIED ATRIAL FIBRILLATION Status: Acute Comment: Back to sinus. Cardiology following. (5) Septic shock Code(s): A41.9 - SEPSIS, UNSPECIFIED ORGANISM; R65.21 - SEVERE SEPSIS WITH SEPTIC SHOCK Status: Acute Comment: Suspected like from pulmonic source, continue Cefepime and Vancomycin, IVF's, persistent (6) Severe protein-calorie malnutrition Code(s): E43 - UNSPECIFIED SEVERE PROTEIN-CALORIE MALNUTRITION Status: Chronic (7) Physical deconditioning Code(s): R53.81 - OTHER MALAISE Status: Acute (8) COPD (chronic obstructive pulmonary disease) Status: Chronic Qualifiers: COPD type: COPD with acute exacerbation Qualified Code(s): J44.1 - Chronic obstructive pulmonary disease with (acute) exacerbation (9) Dementia Code(s): F03.90 - UNSPECIFIED DEMENTIA WITHOUT BEHAVIORAL DISTURBANCE Status: Chronic Qualifiers: Dementia type: unspecified type Dementia behavioral disturbance: with behavioral disturbance Qualified Code(s): F03.91 - Unspecified dementia with behavioral disturbance - Plan * Unfortunately, she has end-stage disease. Her renal function is worsening and the acidosis is not responding to therapy. Continue supportive measures. POA will likely make some decision regarding continuation of care tomorrow.
[2018-02-16] MEDS: Famotidine 20 MG TAB PO SCH (20:28)
[2018-02-16] MEDS: Lorazepam 2 MG/ML VIAL SLOW IVP PRN (22:02)
[2018-02-17] MEDS: Cefepime 2 GM, Admixture Fee 1 EACH in Sodium Chloride 0.9% 100 ML IVPB SCH (04:00)
[2018-02-17] MEDS: Propofol 1,000 MG/100 ML VIAL IV PRN (06:04)
[2018-02-17 06:34] LABS: Anion Gap 10 mmol/L (10-20); BUN (Urea Nitrogen) 61 mg/dL (9.8-20.1); Calc. Creatinine Clearance 20 mL/min (70-130); Calcium 7.6 mg/dL (7.8-10.44); Carbon Dioxide 21 mmol/L (23-31); Chloride 113 mmol/L (98-107); Estimated GFR-MDRD 27; Glucose 226 mg/dL (83-110); Sodium 141 mmol/L (136-145)
[2018-02-17 06:46] LABS: Band 8 % (5-11); Hemoglobin 7.4 g/dL (12.0-16.0); Lymphocytes 5 % (21-51); MDiff Complete? YES; Mean Corpuscular HGB CONC 32.6 g/dL (32.0-36.0); Mean Corpuscular Hemoglobin 33.1 pg (27.0-31.0); Mean Platelet Volume 7.5 fL (7.4-10.4); Monocytes 2 % (0-10); Neutrophil 85 % (42-75); Platelet Count 162 thou/uL (130-400); RBC Distribution Width 12.9 % (11.5-14.5); Red Blood Cell (RBC) Count 2.24 mill/uL (4.20-5.40); White Blood Cell (WBC) Count 11.9 thou/uL (4.8-10.8)
[2018-02-17 07:44] LABS: Actual Bicarbonate (HCO3a) 16.9 mEq/L (22-28); Base Excess (BEa) -7.3 mEq/L (-2.0 to +3.0); Calcium, Ionized 1.1 mmol/L (1.12-1.30); Hemoglobin (Hb) 8.2 g/dL (12.0-16.0); O2 Tension (PaO2) 71.7 mmHg (> 60.0); Puncture Site RRA; pH, Arterial 7.38 (7.35-7.45)
--- NOTE | 2018-02-17 08:00 | PRG ---
DATE OF SERVICE: 02/17/2018 Thirty-five minutes critical care time. The patient remains intubated on mechanical ventilation. Sedation was held this morning. She is sti ll very poorly responsive. PHYSICAL EXAMINATION: VITAL SIGNS: Temperature is 99.3 with a T-max 99.8, pulse 103, blood pressure 118/47. She is curren tly on no vasopressor therapy, but is on a bicarbonate drip. Total intake for the last 24 hours was 1952, output 1290. HEENT: Unremarkable. Bitemporal wasting. Endotracheal tube and orogastric tube in place. NECK: No JVD. LUNGS: Poor air movement, dyssynchronous with the ventilator. CARDIOVASCULAR: S1, S2 regular, slightly tachycardic. ABDOMEN: Soft, nontender, nondistended. EXTREMITIES: No clubbing, cyanosis, or edema. LABORATORY DATA: White blood cell count 11.9, hemoglobin 7.4, hematocrit 22.8, platelet count 162. Sodium 141, potassium 3.0, chloride 113, CO2 21, BUN 61, creatinine 1.8, glucose 226. ABG shows pH 7 .38, pCO2 of 29, pO2 71 and that is on SIMV rate 20. Her x-rays shows hyperinflated lungs. There is infiltrate/effusion in the left lower lobe. Endotrac heal tube and central line are both in good position. ASSESSMENT: 1. Acute respiratory failure, hypoxic. 2. Pneumonia. 3. Chronic obstructive pulmonary disease. 4. General failure to thrive with severe protein calorie malnutrition. 5. Dementia. PLAN: 1. Replace potassium. 2. Not weanable from ventilation. 3. It looks like the power of claim attorney is leaning towards DNR and palliative care measures. I would firmly support that plan of care given that I do not think she will recover back to her baseline.
--- NOTE | 2018-02-17 08:34 | RAD ---
SINGLE VIEW CHEST: Date: 02/17/18 COMPARISON: 02/16/18. HISTORY: Ventilated patient with respiratory failure. FINDINGS: Single view of the chest shows cardiomediastinal silhouette which is upper limits of normal in size w ith atherosclerotic calcifications in the aorta. The lines and tubes are unchanged in position. There appears to be a moderate left pleural effusion. Increased interstitial lung markings are present. IMPRESSION: Cardiomegaly and moderate left pleural effusion. POS: TPC
[2018-02-17] MEDS: Sodium Chloride 0.45% 1,000 ML IV SCH ×2 (13:24→23:55)
[2018-02-17] MEDS: Vancomycin HCl 500 MG, Admixture Fee 1 EACH in Sodium Chloride 0.9% 100 ML IVPB SCH (14:18)
--- NOTE | 2018-02-17 18:31 | PDOC.CTH ---
Cardiology Progress Note - Subjective Remains intubated and sedated. - Objective Vital Signs Temp Pulse Resp BP Pulse Ox 02/17/18 18:00 40 H 02/17/18 16:00 100.6 F H 42 H 02/17/18 15:47 128 H 02/17/18 14:11 88 35 H 98 02/17/18 14:00 36 H 02/17/18 13:28 107 H 135/53 L 02/17/18 12:00 99.2 F 36 H 02/17/18 11:13 119 H 02/17/18 10:00 20 02/17/18 08:00 99.3 F 37 H 02/17/18 07:43 99.3 F 105 H 31 H 99 02/17/18 07:42 106 H Admit Weight 99 lb 6.848 oz Weight 118 lb 6.212 oz 02/16/18 02/17/18 02/18/18 06:59 06:59 06:59 Intake Total 1945.2 1952 1016.6 Output Total 1041 1290 711 Balance 904.2 662 305.6 - Physical Examination General/Neuro: other: (Intubated. ) Neck: no JVD present Lungs: other: (Distand lung sounds. ) Heart: RRR Abdomen: NT/ND Extremities: + edema B (1+) - Telemetry Telemetry Rhythm: S tach. - Labs Result Diagrams: 02/17/18 06:15 02/17/18 06:15 Troponin/CKMB CK-MB (CK-2) 1.6 ng/mL (0-6.6) 02/12/18 11:46 Troponin I 0.010 ng/mL (< 0.028) 02/12/18 11:46 - Assessment/Plan 1. Afib RVR, back in sinus. 2. Pneumonia 3. Acute hypoxic respiratory insufficiency. 4. COPD 5. Dementia PLAN: - Continue supportive care. - Family has decided to withdraw tomorrow which I think is reasonable. - Veto Antoine
[2018-02-17] MEDS: Famotidine 20 MG TAB PO SCH (20:01)
--- NOTE | 2018-02-17 20:58 | PDOC.PN ---
- Subjective Encounter Start Date: 02/17/18 Encounter Start Time: 09:25 Intubated, sedated. - Objective Resuscitation Status: Resuscitation Status DNR:Do Not Resuscitate Vital Signs & Weight: Vital Signs (12 hours) Temp Pulse Resp BP Pulse Ox 02/17/18 20:00 23 H 02/17/18 19:45 99 F 126 H 40 H 90 L 02/17/18 19:00 99 F 02/17/18 18:43 121 H 34 H 98 02/17/18 18:00 40 H 02/17/18 16:00 100.6 F H 42 H 02/17/18 15:47 128 H 02/17/18 14:11 88 35 H 98 02/17/18 14:00 36 H 02/17/18 13:28 107 H 135/53 L 02/17/18 12:00 99.2 F 36 H 02/17/18 11:13 119 H 02/17/18 10:00 20 Weight Admit Weight 99 lb 6.848 oz Weight 118 lb 6.212 oz Most Recent Monitor Data Heart Rate from ECG 121 NIBP 130/52 NIBP BP-Mean 71 Respiration from ECG 38 SpO2 97 I&O: 02/16/18 02/17/18 02/18/18 06:59 06:59 06:59 Intake Total 1945.2 1952 1036.6 Output Total 1041 1290 731 Balance 904.2 662 305.6 Result Diagrams: 02/17/18 06:15 02/17/18 06:15 Phys Exam - Physical Examination Constitutional: NAD Intubated. Sedation off. Has some purposeful movements. HEENT: PERRLA Diminshed bs throughout with scattered rales. Cardiovascular: RRR, no significant murmur Gastrointestinal: soft, non-tender Skin: normal turgor Dx/Plan (1) Acute respiratory failure with hypoxia Code(s): J96.01 - ACUTE RESPIRATORY FAILURE WITH HYPOXIA Status: Acute Comment: Remains on SIMV FIO2 40%, not weanable (2) DONNA (acute kidney injury) Code(s): N17.9 - ACUTE KIDNEY FAILURE, UNSPECIFIED Status: Acute Comment: Worsening. Very poor UOP with dark, sedimentary urine. (3) Acute hypernatremia Code(s): E87.0 - HYPEROSMOLALITY AND HYPERNATREMIA Status: Acute (4) Atrial fibrillation with RVR Code(s): I48.91 - UNSPECIFIED ATRIAL FIBRILLATION Status: Acute Comment: Back to sinus. Cardiology following. (5) Septic shock Code(s): A41.9 - SEPSIS, UNSPECIFIED ORGANISM; R65.21 - SEVERE SEPSIS WITH SEPTIC SHOCK Status: Acute Comment: Suspected like from pulmonic source, continue Cefepime and Vancomycin, IVF's, persistent (6) Severe protein-calorie malnutrition Code(s): E43 - UNSPECIFIED SEVERE PROTEIN-CALORIE MALNUTRITION Status: Chronic (7) Physical deconditioning Code(s): R53.81 - OTHER MALAISE Status: Acute (8) COPD (chronic obstructive pulmonary disease) Status: Chronic Qualifiers: COPD type: COPD with acute exacerbation Qualified Code(s): J44.1 - Chronic obstructive pulmonary disease with (acute) exacerbation (9) Dementia Code(s): F03.90 - UNSPECIFIED DEMENTIA WITHOUT BEHAVIORAL DISTURBANCE Status: Chronic Qualifiers: Dementia type: unspecified type Dementia behavioral disturbance: with behavioral disturbance Qualified Code(s): F03.91 - Unspecified dementia with behavioral disturbance - Plan * Nursing reports that a family friend / corporate attorney came in today with the patient 's formal DNR paperwork in hand. The patient's family has indicated that they will make a decision regarding the continuation/discontinuation of care tomorrow.
[2018-02-18] MEDS: Cefepime 2 GM, Admixture Fee 1 EACH in Sodium Chloride 0.9% 100 ML IVPB SCH (03:27)
[2018-02-18 05:48] LABS: Anion Gap 13 mmol/L (10-20); BUN (Urea Nitrogen) 62 mg/dL (9.8-20.1); Calc. Creatinine Clearance 0 mL/min (70-130); Calcium 7.3 mg/dL (7.8-10.44); Carbon Dioxide 19 mmol/L (23-31); Chloride 112 mmol/L (98-107); Estimated GFR-MDRD 27; Glucose 133 mg/dL (83-110); Sodium 141 mmol/L (136-145)
[2018-02-18 05:55] LABS: Potassium 2.9 mmol/L (3.5-5.1)
[2018-02-18 05:58] LABS: Band 23 % (5-11); Hemoglobin 7.7 g/dL (12.0-16.0); Lymphocytes 2 % (21-51); MDiff Complete? YES; Mean Corpuscular HGB CONC 32.7 g/dL (32.0-36.0); Mean Corpuscular Hemoglobin 33.1 pg (27.0-31.0); Mean Platelet Volume 7.8 fL (7.4-10.4); Monocytes 1 % (0-10); Neutrophil 74 % (42-75); PLT Morphology Comment Appears Adequate; Platelet Count 162 thou/uL (130-400); RBC Distribution Width 12.8 % (11.5-14.5); Red Blood Cell (RBC) Count 2.33 mill/uL (4.20-5.40); White Blood Cell (WBC) Count 15.2 thou/uL (4.8-10.8)
[2018-02-18 07:42] LABS: Actual Bicarbonate (HCO3a) 19.3 mEq/L (22-28); Base Excess (BEa) -4.9 mEq/L (-2.0 to +3.0); CO2 Tension 31.8 mmHg (35.0-45.0); Hemoglobin (Hb) 7.8 g/dL (12.0-16.0); O2 Tension (PaO2) 82.3 mmHg (> 60.0)
[2018-02-18 07:43] LABS: Calcium, Ionized 1.1 mmol/L (1.12-1.30); Puncture Site RRA
[2018-02-18] MEDS: Propofol 1,000 MG/100 ML VIAL IV PRN (07:54)
--- NOTE | 2018-02-18 09:14 | RAD ---
AP VIEW CHEST: INDICATIONS: Intubation. COMPARISON: 02/17/2015 FINDINGS: Hazy air space opacities involving the left lung is stable. Partial pneumonectomy changes of the rig ht lung are stable. Emphysema is similar. Right IJ central venous catheter, gastric catheter, and E T tube are unchanged. No pneumothorax is evident. Osseous structures are similar. IMPRESSION: 1. Stable hazy opacity of the left lung, likely related to layered pleural effusion. 2. Mild cardiomegaly persists. 3. Chronic obstructive pulmonary disease changes are similar. POS: CHUCK
--- NOTE | 2018-02-18 09:17 | PRG ---
DATE OF SERVICE: 02/18/2018 Thirty-five minutes critical care time. The patient is actually awake and looks a little better today. I am told that the family is planning terminal extubation later. PHYSICAL EXAMINATION: VITAL SIGNS: Temperature is 98.5, pulse 104, blood pressure 139/58. 24 hour intake 2813, output 151 5. HEENT: Unremarkable. NECK: No JVD. LUNGS: Clear, but distant breath sounds. CARDIAC: S1 and S2 regular. ABDOMEN: Soft. EXTREMITIES: No edema. LABORATORY DATA: White blood cell count 15, hematocrit 23.6, platelet count 162 with 74% neutrophils , 23% bands, pH 7.40, pCO2 31, pO2 of 82 on SIMV rate 20, tidal volume 400, PEEP 5, pressure support 10, FiO2 30%. Sodium 141, potassium 2.9, chloride 112, CO2 of 19, BUN 62, creatinine 1.7, glucose 13 3. Chest x-ray demonstrates infiltrative changes in the left. This is unchanged from previous. ASSESSMENT: 1. Acute respiratory failure requiring mechanical ventilation. 2. Pneumonia. 3. Advanced age. 4. General failure to thrive with severe protein calorie malnutrition. 5. Dementia. PLAN: 1. I will go ahead and try to put her on CPAP. She may actually do reasonably well, extubated. 2. Discontinue daily x-ray, discontinue daily ABG. 3. Replace potassium. 4. Planned extubation about 1:00 today. I have written for some comfort morphine if needed for resp iratory distress post-extubation.
[2018-02-18] MEDS: Sodium Chloride 0.45% 1,000 ML IV SCH (11:56)
[2018-02-18 13:27] LABS: Vancomycin, Trough 51.7 ug/mL
--- NOTE | 2018-02-18 14:41 | PDOC.PN ---
- Subjective Encounter Start Date: 02/18/18 Encounter Start Time: 09:10 - Objective Resuscitation Status: Resuscitation Status DNR:Do Not Resuscitate Vital Signs & Weight: Vital Signs (12 hours) Temp Pulse Resp Pulse Ox 02/18/18 13:30 101 H 28 H 89 L 02/18/18 13:26 95 02/18/18 11:48 98.3 F 26 H 02/18/18 10:42 100 02/18/18 09:59 25 H 02/18/18 08:00 98.5 F 104 H 23 H 100 02/18/18 07:17 98 02/18/18 07:00 99.0 F 02/18/18 05:00 98.5 F 02/18/18 04:00 28 H 02/18/18 03:00 98.7 F Weight Admit Weight 99 lb 6.848 oz Weight 1.944 oz Most Recent Monitor Data Heart Rate from ECG 96 NIBP 125/46 NIBP BP-Mean 79 Respiration from ECG 24 SpO2 98 I&O: 02/17/18 02/18/18 02/19/18 06:59 06:59 06:59 Intake Total 1952 2183.6 100 Output Total 1290 1516 255 Balance 662 667.6 -155 Result Diagrams: 02/18/18 05:26 02/18/18 05:26 Phys Exam - Physical Examination Constitutional: NAD Intubated. Will awaken a bit with verbal stimulus. Neck: supple Respiratory: no wheezing, no rales, no rhonchi, clear to auscultation bilateral Cardiovascular: RRR, no significant murmur Gastrointestinal: soft, non-tender, no distention Musculoskeletal: no edema Neurological: non-focal Skin: normal turgor Dx/Plan (1) Acute respiratory failure with hypoxia Code(s): J96.01 - ACUTE RESPIRATORY FAILURE WITH HYPOXIA Status: Acute Comment: Remains on SIMV FIO2 40%, not weanable (2) DONNA (acute kidney injury) Code(s): N17.9 - ACUTE KIDNEY FAILURE, UNSPECIFIED Status: Acute Comment: Worsening. Very poor UOP with dark, sedimentary urine. (3) Acute hypernatremia Code(s): E87.0 - HYPEROSMOLALITY AND HYPERNATREMIA Status: Acute (4) Atrial fibrillation with RVR Code(s): I48.91 - UNSPECIFIED ATRIAL FIBRILLATION Status: Acute Comment: Back to sinus. Cardiology following. (5) Septic shock Code(s): A41.9 - SEPSIS, UNSPECIFIED ORGANISM; R65.21 - SEVERE SEPSIS WITH SEPTIC SHOCK Status: Acute Comment: Suspected like from pulmonic source, continue Cefepime and Vancomycin, IVF's, persistent (6) Severe protein-calorie malnutrition Code(s): E43 - UNSPECIFIED SEVERE PROTEIN-CALORIE MALNUTRITION Status: Chronic (7) Physical deconditioning Code(s): R53.81 - OTHER MALAISE Status: Acute (8) COPD (chronic obstructive pulmonary disease) Status: Chronic Qualifiers: COPD type: COPD with acute exacerbation Qualified Code(s): J44.1 - Chronic obstructive pulmonary disease with (acute) exacerbation (9) Dementia Code(s): F03.90 - UNSPECIFIED DEMENTIA WITHOUT BEHAVIORAL DISTURBANCE Status: Chronic Qualifiers: Dementia type: unspecified type Dementia behavioral disturbance: with behavioral disturbance Qualified Code(s): F03.91 - Unspecified dementia with behavioral disturbance - Plan * Still awaiting a decision from the family regarding the continuation or discontinuation of care. The nephew has indicated the desire to withdraw care and that is amenable to the medical team given the prognosis.
--- NOTE | 2018-02-18 17:05 | PDOC.CTH ---
Cardiology Progress Note - Subjective Late entry. She was evaluated at 8am. Patient remained intubated. - Objective Vital Signs Temp Pulse Resp BP Pulse Ox 02/18/18 16:23 97.8 F 111 H 28 H 157/72 H 90 L 02/18/18 15:48 89 L 02/18/18 14:35 98 F 111 H 28 H 179/78 H 86 L 02/18/18 14:00 98.7 F 02/18/18 13:30 101 H 28 H 89 L 02/18/18 13:26 95 02/18/18 11:48 98.3 F 26 H 02/18/18 10:42 100 02/18/18 09:59 25 H 02/18/18 08:00 98.5 F 104 H 23 H 100 02/18/18 07:17 98 02/18/18 07:00 99.0 F Admit Weight 99 lb 6.848 oz Weight 1.944 oz 02/17/18 02/18/18 02/19/18 06:59 06:59 06:59 Intake Total 1952 2183.6 588 Output Total 1290 1516 355 Balance 662 667.6 233 - Physical Examination General/Neuro: other: (intubated) Neck: no JVD present Lungs: unlabored respirations Heart: RRR Abdomen: NT/ND Extremities: + edema B (1+) - Telemetry Telemetry Rhythm: S tach. - Labs Result Diagrams: 02/18/18 05:26 02/18/18 05:26 Troponin/CKMB CK-MB (CK-2) 1.6 ng/mL (0-6.6) 02/12/18 11:46 Troponin I 0.010 ng/mL (< 0.028) 02/12/18 11:46 - Assessment/Plan 1. Afib RVR, back in sinus. 2. Pneumonia 3. Acute hypoxic respiratory insufficiency. 4. COPD 5. Dementia PLAN: - Continue supportive care. - Family has decided to withdraw later today. - Veto Antoine
[2018-02-18] MEDS: Vancomycin HCl 500 MG, Admixture Fee 1 EACH in Sodium Chloride 0.9% 100 ML IVPB SCH (19:05)
[2018-02-19] MEDS ORDERED: Vancomycin HCl 500 MG, Admixture Fee 1 EACH in Sodium Chloride 0.9% 100 ML IVPB SCH (02:00)
--- NOTE | 2018-02-19 13:42 | PRG ---
DATE OF SERVICE: 02/19/2018 SUBJECTIVE: Patient was extubated and placed on comfort care yesterday. She is not receiving any me dications other than comfort medications at the time. PHYSICAL EXAMINATION: VITAL SIGNS: Temperature 97.4, pulse 113, respirations , O2 sat 90%, blood pressure 167/77. GENERAL: She appears to be in mild to moderate respiratory discomfort. HEENT: Unremarkable. NECK: No JVD. LUNGS: Coarse breath sounds. CARDIAC: S1 and S2 regular. ABDOMEN: Soft. EXTREMITIES: No edema. ASSESSMENT: Status post acute respiratory failure related to pneumonia, advanced age. PLAN: She is continuing comfort measures. There are no further recommendations from our standpoint. Further care will be per the Hospitalist Service. Please recall if further assistance needed.
[2018-02-19 13:47] VITALS: BMI 19.7
--- NOTE | 2018-02-19 17:06 | PDOC.PN ---
- Subjective Encounter Start Date: 02/19/18 Encounter Start Time: 08:50 Patient is non-verbal. Family present. No concerns. - Objective Resuscitation Status: Resuscitation Status DNR:Do Not Resuscitate Vital Signs & Weight: Vital Signs (12 hours) Temp Pulse Resp BP Pulse Ox 02/19/18 15:39 97.4 F L 104 H 32 H 167/73 H 89 L 02/19/18 13:11 111 H 36 H 156/73 H 88 L 02/19/18 11:22 98 F 111 H 32 H 164/75 H 89 L 02/19/18 07:35 97.4 F L 113 H 32 H 90 L 02/19/18 07:31 97.4 F L 113 H 32 H 167/77 H 90 L Weight Admit Weight 99 lb 6.848 oz Weight 118 lb 6.212 oz Most Recent Monitor Data Heart Rate from ECG 103 NIBP 154/62 NIBP BP-Mean 123 Respiration from ECG 32 SpO2 90 I&O: 02/18/18 02/19/18 02/20/18 06:59 06:59 06:59 Intake Total 2183.6 588 Output Total 1516 1455 Balance 667.6 -867 Result Diagrams: 02/18/18 05:26 02/18/18 05:26 Phys Exam - Physical Examination Supine. Opens eyes, but non-verbal. Slightly tachypneic. Neck: no JVD, supple Harsh wheezes throughout. Cardiovascular: RRR Gastrointestinal: soft Dx/Plan (1) Acute respiratory failure with hypoxia Code(s): J96.01 - ACUTE RESPIRATORY FAILURE WITH HYPOXIA Status: Acute (2) DONNA (acute kidney injury) Code(s): N17.9 - ACUTE KIDNEY FAILURE, UNSPECIFIED Status: Acute (3) Acute hypernatremia Code(s): E87.0 - HYPEROSMOLALITY AND HYPERNATREMIA Status: Acute (4) Atrial fibrillation with RVR Code(s): I48.91 - UNSPECIFIED ATRIAL FIBRILLATION Status: Acute (5) Septic shock Code(s): A41.9 - SEPSIS, UNSPECIFIED ORGANISM; R65.21 - SEVERE SEPSIS WITH SEPTIC SHOCK Status: Acute (6) Severe protein-calorie malnutrition Code(s): E43 - UNSPECIFIED SEVERE PROTEIN-CALORIE MALNUTRITION Status: Chronic (7) Physical deconditioning Code(s): R53.81 - OTHER MALAISE Status: Acute (8) COPD (chronic obstructive pulmonary disease) Status: Chronic Qualifiers: COPD type: COPD with acute exacerbation Qualified Code(s): J44.1 - Chronic obstructive pulmonary disease with (acute) exacerbation (9) Dementia Code(s): F03.90 - UNSPECIFIED DEMENTIA WITHOUT BEHAVIORAL DISTURBANCE Status: Chronic Qualifiers: Dementia type: unspecified type Dementia behavioral disturbance: with behavioral disturbance Qualified Code(s): F03.91 - Unspecified dementia with behavioral disturbance - Plan * Continue comfort measures. Add scheduled dose of mso4 for the tachypnea. Discussed with patient's nephew. Hospice consult.
[2018-02-19 18:30] VITALS: BP 157/73; TEMP 97.6
== END 2018-02-19 21:22 | disposition hospice, inpatient (51) | DRG 870 ==
LOC: ERS 11:04 → CCU 16:57 → T4-A 02-18 14:40
PROVIDERS: ADMIT Family Medicine; ATTEND Family Medicine
PROC: 3E033XZ Introduction of Vasopressor into Peripheral Vein, Percutaneous Approach (ICD-10-PCS; principal; 2018-02-12)
PROC: 5A1955Z Respiratory Ventilation, Greater than 96 Consecutive Hours (ICD-10-PCS; 2018-02-12)
PROC: 5A09357 Assistance with Respiratory Ventilation, Less than 24 Consecutive Hours, Continuous Positive Airway Pressure (ICD-10-PCS; 2018-02-12)
PROC: 0BH17EZ Insertion of Endotracheal Airway into Trachea, Via Natural or Artificial Opening (ICD-10-PCS; 2018-02-12)
PROC: 02HV33Z Insertion of Infusion Device into Superior Vena Cava, Percutaneous Approach (ICD-10-PCS; 2018-02-14)
DX: A41.9 Sepsis, unspecified organism (principal); J18.9 Pneumonia, unspecified organism; R65.21 Severe sepsis with septic shock; J96.01 Acute respiratory failure with hypoxia; E43 Unspecified severe protein-calorie malnutrition; N17.9 Acute kidney failure, unspecified; R64 Cachexia; Z68.1 Body mass index [BMI] 19.9 or less, adult; E87.0 Hyperosmolality and hypernatremia; F05 Delirium due to known physiological condition; J44.0 Chronic obstructive pulmonary disease with (acute) lower respiratory infection; R62.7 Adult failure to thrive; F03.90 Unspecified dementia, unspecified severity, without behavioral disturbance, psychotic disturbance, mood disturbance, and anxiety; I10 Essential (primary) hypertension; I48.91 Unspecified atrial fibrillation; F41.9 Anxiety disorder, unspecified; F32.9 Major depressive disorder, single episode, unspecified; I44.0 Atrioventricular block, first degree; I44.4 Left anterior fascicular block; R15.9 Full incontinence of feces; L89.152 Pressure ulcer of sacral region, stage 2; F17.210 Nicotine dependence, cigarettes, uncomplicated; M19.90 Unspecified osteoarthritis, unspecified site; I34.0 Nonrheumatic mitral (valve) insufficiency; S72.002D Fracture of unspecified part of neck of left femur, subsequent encounter for closed fracture with routine healing; X58.XXXD Exposure to other specified factors, subsequent encounter; Z78.1 Physical restraint status; Z86.79 Personal history of other diseases of the circulatory system; Z90.49 Acquired absence of other specified parts of digestive tract; Z90.710 Acquired absence of both cervix and uterus; Z88.1 Allergy status to other antibiotic agents; Z88.0 Allergy status to penicillin; Z79.899 Other long term (current) drug therapy; Z79.82 Long term (current) use of aspirin
CPT/HCPCS: 31500; 36415; 51702; 71045; 80048; 80053; 80202; 81003; 81015; 82533; 82553; 82805; 83605; 84484; 85007; 85025; 85027; 87040; 87086; 93005; 93010; 94002; 94003; 94640; 96365; 96366; 96367; A4353; J0692; J1160; J2060; J2270; J2704; J2760; J2920; J3010; J3370; J3480; J7050; J7070; J7620; S0028